=== PATIENT | female | born 1955 | race Caucasian/White ===

== ENCOUNTER 2020-09-15 10:24 | Emergency (ER) | payer MEDICARE, SELFPAY ==
[2020-09-11 12:01] VITALS: BMI 44.2
--- NOTE | 2020-09-14 10:13 | HO.ANESPROP2 ---
HPI - Anesthesia Eval Consult details Narrative: 64yo F for Spinal Cord Simulation Trial PMFSH Past Medical History Medical History Arthritis Back pain Elevated cholesterol Fatty liver Former cigarette smoker Hypertension Kidney tumor Leg edema Surgical History Surgical History History of hemorrhoidectomy Hx of appendectomy Hx of bilateral breast reduction surgery Hx of section Hx of colonoscopy Social History Social History Advance Directives: No Advance Directives Information Provided: No Advance Directives on File: No Meds Allergies Allergy/AdvReac Type Severity Reaction Status Date / Time No Known Allergies Allergy Unverified 09/11/20 11:56 [No Known Allergies*] Home Medications Medication Instructions Recorded Confirmed Type conjugated estrogens [Premarin] VAGINAL BEDTIME 09/11/20 History diclofenac sodium 1 tab PO BID 09/11/20 09/11/20 History escitalopram oxalate 1 tab PO DAILY 09/11/20 09/11/20 History hydrochlorothiazide 1 tab PO DAILY 09/11/20 09/11/20 History losartan 1 tab PO DAILY 09/11/20 09/11/20 History nicotine 1 patch TOPICAL DAILY 09/11/20 09/11/20 History rosuvastatin 1 tab PO DAILY 09/11/20 09/11/20 History Exam Exam Date and Time: September 14, 2020 1013 Height,Weight and Vital Signs: Height 5 ft 4 in Weight 117.027 kg Assessment and Plan Assessment Anesthesia Assessment: Chart Reviewed
[2020-09-15 09:18] VITALS: BP 149/75; PULSE 67; RESP 18; TEMP 36.3; O2SAT 95
[2020-09-15] MEDS: Lactated Ringers 1,000 ML 100 ML IVCONT (09:41)
--- NOTE | 2020-09-15 10:29 | PC.NURSE ---
Pt informed this rn on arrival of fall at home last night. PT c/o 10/10 pain to left side kidney area and back radiating down to left leg. Pt unable to bear weight to left leg. Dr. Petit notified and orders received to send patient to ER for further evaluation.
[2020-09-15 10:37] VITALS: BP 154/83; PULSE 76; RESP 20; TEMP 36.7; O2SAT 96; BMI 48.5
--- NOTE | 2020-09-15 10:37 | XR_ITS ---
EXAMINATION: XR HIP, LEFT CLINICAL INFORMATION: Pain. Fall. COMPARISON: None TECHNIQUE: Two views of the left hip. Frontal view of the pelvis. FINDINGS: No fracture or dislocation. The left femoral head articulates appropriately with its acetabulum. There is flattening of the femoral head with superior joint space narrowing. Subchondral sclerosis present. There is also flattening of the right femoral head with sclerosis of the femoral head and of the adjacent acetabulum with prominent subchondral cyst formation as well. The pelvic rim is intact. The sacroiliac joints and pubic symphysis are intact. The bowel gas pattern is unremarkable XR/XR hip LT min 2V IMPRESSION: No acute fracture or dislocation. Severe degenerative changes of both hips with flattening of the femoral heads.
--- NOTE | 2020-09-15 10:37 | XR_ITS ---
EXAMINATION: XR LUMBOSACRAL SPINE CLINICAL INFORMATION: Pain. Fall. COMPARISON: None TECHNIQUE: Three views of the lumbosacral spine. FINDINGS: No fracture or acute subluxation. Grade 1 anterolisthesis of L4 on L5. Vertebral body height and alignment is otherwise maintained. Disc space narrowing at L4-L5. Multilevel endplate osteophytes with facet arthropathy. The bowel gas pattern is unremarkable. XR/XR lumbar spine 2-3V IMPRESSION: No acute osseous abnormality. Mild to moderate multilevel degenerative changes.
--- NOTE | 2020-09-15 10:39 | ED_ITS ---
HPI - Back Pain/Injury General Chief Complaint: Back Pain/Injury Time Seen by Provider: 09/15/20 10:36 Source: patient Mode of arrival: other (short stay surgery) Limitations: no limitations History of Present Illness MD elicited complaint: back pain, back injury and fall Pertinent past history: prior back pain and recent trauma Onset (ago): day(s) (fell yesterday) Timing: constant Severity: moderate Similar Symptoms Previously: Yes Quality: sharp and stabbing Location: lumbar spine Radiation: left upper leg Exacerbating factors: movement Relieving factors: none Context: fall Associated symptoms: other (L hip pain) Work related injury: No Related Data Home Medications Medication Instructions Recorded Confirmed conjugated estrogens [Premarin] VAGINAL BEDTIME 09/11/20 diclofenac sodium 1 tab PO BID 09/11/20 09/11/20 escitalopram oxalate 1 tab PO DAILY 09/11/20 09/11/20 hydrochlorothiazide 1 tab PO DAILY 09/11/20 09/11/20 losartan 1 tab PO DAILY 09/11/20 09/11/20 nicotine 1 patch TOPICAL DAILY 09/11/20 09/11/20 rosuvastatin 1 tab PO DAILY 09/11/20 09/11/20 Previous Rx's Medication Instructions Recorded diazepam [Valium] 5 mg PO TID PRN #10 tab 09/15/20 hydrocodone-acetaminophen 1 tab PO Q6H PRN #12 tab 09/15/20 lidocaine 1 patch TOPICAL DAILY PRN #10 ea 09/15/20 Allergies Allergy/AdvReac Type Severity Reaction Status Date / Time acetaminophen [From Percocet] Allergy Itching Verified 09/15/20 10:34 oxycodone [From Percocet] Allergy Itching Verified 09/15/20 10:34 Review of Systems Review of Systems: Constitutional : No Weight loss, No Fever, No Chills, ENT/Mouth : No Hearing loss, No Ear Pain, No Nasal Congestion, No Sinus Pain, No Hoarseness, No sore throat, No Rhinorrhea, No Swallowing Difficulty Cardiovascular : No Chest Pain, No SOB Respiratory : No Cough, No Dyspnea Gastrointestinal : No Nausea, No Vomiting, No Diarrhea, No abdominal Pain, No Hematochezia, No Melena Genitourinary : No Dysuria, No Urinary Frequency, No Hematuria, No Urinary Incontinence, Musculoskeletal : positive back pain, pos L hip pain Skin : No Skin Lesions, No rash Neuro : No Weakness, No Numbness, No Paresthesias, no loss of bowel or bladder incontinence, no saddle anesthesia [facility] Past Medical History Attestation statement: The following information was validated with the patient. Medical History Arthritis Back pain Elevated cholesterol Fatty liver Former cigarette smoker Hypertension Kidney tumor Leg edema Surgical History History of hemorrhoidectomy Hx of appendectomy Hx of bilateral breast reduction surgery Hx of section Hx of colonoscopy Social History Social History (Updated 09/15/20 @ 10:43 by Sofi Phillips DO) Alcohol intake: never Use of substances other than those prescribed or required for medical reasons: No Advance Directives: No Advance Directives Information Provided: No Advance Directives on File: No Physical Exam Vital Signs: Vital Signs: Last Vital Signs Temp 98.1 F 09/15/20 10:37 Pulse 76 09/15/20 10:37 Resp 20 09/15/20 10:37 BP 154/83 H 09/15/20 10:37 Pulse Ox 96 09/15/20 10:37 Body Mass Index 48.5 Appearance: Alert. Oriented X3. No acute distress. Eyes: Pupils equal, round and reactive to light. ENT: Pharynx normal. Neck: Normal inspection. Neck supple. CVS: Normal heart rate and rhythm. Pulses normal. Respiratory: No respiratory distress. Breath sounds normal. Abdomen: Soft and nontender. Back: ttp along L lower lumbar Skin: Skin warm and dry. Normal skin color. Normal skin turgor. Extremities: No lower extremity edema. L hip pain Neuro: Oriented X 3. No motor deficit. No sensory deficit. Course Course Course Narrative: negative xrays, patient wants to go back to [facility] for stimulator but she was canceled, she is upset, offered rehab but she refuses, no neuro findings, stable for DC MDM - Back Pain/Injury MDM Narrative Medical decision making narrative: 64 yo female with hx of chronic back pain no IVDA, no AC therapy, no b/b incontinence, no saddle anesthesia - fell yesterday isolated injury to L hip and back sent from [facility] for xrays? patient due for stimulator today, lumbar and L hip films ordered, IV pain medications Discharge Plan Discharge Clinical Impression: Strain of lumbar region Qualifiers: Encounter type: initial encounter Qualified Code(s): S39.012A - Strain of muscle, fascia and tendon of lower back, initial encounter Acute hip pain Qualifiers: Laterality: left Qualified Code(s): M25.552 - Pain in left hip Patient Disposition: Home, Self-Care Instructions: Acute Low Back Pain (ED) Additional Instructions: return to ED for any worsening symptoms or concerns Prescriptions: New lidocaine 4 % adhesive patch,medicated 1 patch topical DAILY PRN (Reason: pain) Qty: 10 RF: 0 hydrocodone-acetaminophen 5-325 mg tablet 1 tab PO Q6H PRN (Reason: pain) Qty: 12 RF: 0 diazepam [Valium] 5 mg tablet 5 mg PO TID PRN (Reason: muscle spasm) Qty: 10 RF: 0 No Action losartan 50 mg tablet 1 tab PO DAILY RF: 0 Premarin 0.625 mg/gram cream vaginal BEDTIME RF: 0 nicotine 21 mg/24 hr patch 24 hour 1 patch topical DAILY RF: 0 diclofenac sodium 75 mg tablet,delayed release (DR/EC) 1 tab PO BID RF: 0 hydrochlorothiazide 25 mg tablet 1 tab PO DAILY RF: 0 rosuvastatin 40 mg tablet 1 tab PO DAILY RF: 0 escitalopram oxalate 5 mg tablet 1 tab PO DAILY RF: 0 Referrals: Noreen White MD [Primary Care Provider] - 2 days Salo Petit MD [Physician] - 2 days
[2020-09-15] MEDS: HYDROmorphone HCl 1 MG/ML SYRINGE IVPUSH (10:45)
--- NOTE | 2020-09-15 10:45 | PC.NURSE ---
IV FROM OR 20 G R HAND. MEDICATED PER ORDERS FOR 1010 BACK PAIN
--- NOTE | 2020-09-15 12:33 | PC.NURSE ---
PT TO BE RESCHEDULED FOR SURGERY. AGREEABLE TO DISCHARGE.
== END 2020-09-15 12:38 | disposition home or self-care (01) ==
LOC: HO.ED 10:25
PROVIDERS: Emergency Provider Emergency Medicine; PCP Internal Medicine; Visit Provider Anesthesiology
DX: S39.012A Strain of muscle, fascia and tendon of lower back, initial encounter (principal); G90.523 Complex regional pain syndrome I of lower limb, bilateral; M25.552 Pain in left hip; W01.0XXA Fall on same level from slipping, tripping and stumbling without subsequent striking against object, initial encounter; Y93.9 Activity, unspecified; Y92.9 Unspecified place or not applicable; Y99.9 Unspecified external cause status; Z87.891 Personal history of nicotine dependence; Z79.899 Other long term (current) drug therapy
CPT/HCPCS: 72100; 73502; 99283; J1170

== ENCOUNTER → 2020-11-01 10:21 | Outpatient (BNVA) | payer MEDICARE, SELFPAY | PROVIDERS: PCP Internal Medicine; Referring Provider Internal Medicine; Visit Provider Anesthesiology | DX: M16.0 Bilateral primary osteoarthritis of hip (principal); M54.5 Low back pain; G89.4 Chronic pain syndrome; E66.9 Obesity, unspecified | CPT/HCPCS: 99212 ==

== ENCOUNTER 2020-11-28 06:27 | Outpatient (REF) | payer MEDICARE, SELFPAY ==
--- NOTE | 2020-11-28 07:34 | FL_ITS ---
EXAMINATION: XR FLUOROSCOPY WITH IMAGES CLINICAL INFORMATION: M16.0 - Bilateral primary osteoarthritis of hip COMPARISON: Radiographs left hip 09/15/2020 TECHNIQUE: Fluoroscopy performed by Yolanda Wells NP. Fluoroscopy time: 0.3 minutes DAP: 9.02 Gycm2 Images: 1 FINDINGS: There is a spinal needle overlying the superior lateral aspect left hip joint with some trace intra-articular contrast demonstrated. Prominent arthritic changes again seen similar to prior study with joint narrowing and subchondral sclerosis and flattening femoral head. FL/FL guidance in treatment room IMPRESSION: Fluoroscopy for pain management procedure.
[2020-11-28 12:59] LABS: RBC Synovial Fluid 0.012 X10*6/uL; WBC Synovial Fluid 0.345 X10*3/uL
[2020-11-28 14:03] LABS: Lymphocytes Synovial Fluid 27 %; Neutrophils Synovial Fluid 17 %
[2020-11-28 14:04] LABS: BF Shift QC OK YES; Man Diluent Bkgrd OK YES; Monocytes Synovial Fluid 26 %; Other Cells Synovial Fluid 30
== END 2020-11-28 06:28 | disposition home or self-care (01) ==
LOC: HO.RADIR 06:27
PROVIDERS: Visit Provider Anesthesiology
DX: M16.0 Bilateral primary osteoarthritis of hip (principal); M54.5 Low back pain
CPT/HCPCS: 20610; 87071; 87073; 87205; 89051; 89060; J3300; Q9967

== ENCOUNTER → 2020-12-28 10:18 | Outpatient (BNVA) | payer MEDICARE, SELFPAY | PROVIDERS: PCP Internal Medicine; Visit Provider Anesthesiology | DX: E66.9 Obesity, unspecified (principal); G89.4 Chronic pain syndrome | CPT/HCPCS: Q3014 ==

== ENCOUNTER 2021-01-02 06:05 | Outpatient (REF) | payer MEDICARE, SELFPAY | END 2021-01-02 06:06 | disposition home or self-care (01) | LOC: HO.RADIR 06:05 | PROVIDERS: Visit Provider Anesthesiology | DX: Z13.89 Encounter for screening for other disorder (principal) ==

== ENCOUNTER 2021-02-02 10:33 | Day surgery (SDC) | payer MEDICARE, SELFPAY ==
[2021-01-29 14:31] VITALS: BMI 49.2
--- NOTE | 2021-02-01 11:40 | P.CONAN_ITS ---
Documented by User: Magnolia Gregorio 02/01/21 11:40 HPI - Anesthesia Eval Consult details Narrative: 65yo F for Lumbar Spinal Cord Simulation Trial (previously scheduled but had fall at home and sent to ED for eval) PMFSH Active Problems Active Problems: All Active Problems (Updated 01/29/21 @ 14:33 by Hayley Dubois) Chronic pain syndrome (Acute) Obesity (Acute) Low back pain (Acute) Osteoarthritis, hip, bilateral (Acute) Past Medical History Medical History Back pain Chronic pain syndrome Depression Elevated cholesterol Fatty liver Hypertension Kidney tumor Leg edema Low back pain Obesity Osteoarthritis, hip, bilateral Surgical History Surgical History History of hemorrhoidectomy Hx of appendectomy Hx of bilateral breast reduction surgery Hx of section Hx of cholecystectomy Hx of colonoscopy Social History Social History Are you a primary career resource technician to a significant other at home: No Do you presently have visiting nurse or other home services: No Alcohol intake: never Smoking Status: Current every day smoker Tobacco Type: Cigarette Cigarettes Per Day: 5 Years Smoked: 35 Smoked in Last 30 Days: Yes Use of substances other than those prescribed or required for medical reasons: No Have you been hit, kicked, punched, or otherwise hurt by someone within the past year? If so, by whom?: No Advance Directives Information Provided: No Recently lost weight without trying: No Meds Allergies Allergy/AdvReac Type Severity Reaction Status Date / Time oxycodone [From Percocet] Allergy Itching Verified 02/02/21 11:06 Home Medications Medication Instructions Recorded Confirmed Last Taken Type conjugated estrogens [Premarin] 1 appl VAGINAL BEDTIME 09/11/20 01/29/21 Unknown History escitalopram oxalate 5 mg PO DAILY 09/11/20 01/29/21 09/15/20 History hydrochlorothiazide 25 mg PO DAILY PRN 09/11/20 01/29/21 Unknown History losartan 50 mg PO DAILY 09/11/20 01/29/21 09/15/20 History rosuvastatin 40 mg PO DAILY 09/11/20 01/29/21 09/15/20 History Exam Exam Date and Time: February 01, 2021 1140 Height,Weight and Vital Signs: Height 5 ft 4 in Weight 130.181 kg Assessment and Plan Assessment Anesthesia Assessment: Chart Reviewed Documented by User: Iris Smith 02/02/21 11:07 [facility] Past Medical History Medical History Back pain Chronic pain syndrome Depression Elevated cholesterol Fatty liver Hypertension Kidney tumor Leg edema Low back pain Obesity Osteoarthritis, hip, bilateral Surgical History Surgical History History of hemorrhoidectomy Hx of appendectomy Hx of bilateral breast reduction surgery Hx of section Hx of cholecystectomy Hx of colonoscopy Social History Social History Are you a primary career resource technician to a significant other at home: No Do you presently have visiting nurse or other home services: No Alcohol intake: never Smoking Status: Current every day smoker Tobacco Type: Cigarette Cigarettes Per Day: 5 Years Smoked: 35 Smoked in Last 30 Days: Yes Use of substances other than those prescribed or required for medical reasons: No Have you been hit, kicked, punched, or otherwise hurt by someone within the past year? If so, by whom?: No Advance Directives Information Provided: No Recently lost weight without trying: No Meds Allergies Allergy/AdvReac Type Severity Reaction Status Date / Time oxycodone [From Percocet] Allergy Itching Verified 02/02/21 11:06 Home Medications Medication Instructions Recorded Confirmed Last Taken Type conjugated estrogens [Premarin] 1 appl VAGINAL BEDTIME 09/11/20 01/29/21 Unknown History escitalopram oxalate 5 mg PO DAILY 09/11/20 01/29/21 09/15/20 History hydrochlorothiazide 25 mg PO DAILY PRN 09/11/20 01/29/21 Unknown History losartan 50 mg PO DAILY 09/11/20 01/29/21 09/15/20 History rosuvastatin 40 mg PO DAILY 09/11/20 01/29/21 09/15/20 History Exam Airway Mallampati Class: III TM Dist: >3cm Neck ROM: Full
--- NOTE | ~2021-02-02 | FL_ITS ---
EXAMINATION: XR FLUOROSCOPY WITH IMAGES CLINICAL INFORMATION: Lumbar spine spinal cord stimulation trial. COMPARISON: None. TECHNIQUE: Fluoroscopy performed by Dr. Elaine Leong Fluoroscopy time: 3.8 minutes DAP: 54.5 mGycm2 Images: 1 FINDINGS: On a single image obtained through the spinal column is a neural stimulator extending caudad with its tip along the superior endplate of L3 vertebra. The entry point is not in the [id number]. Mild degenerative disc changes at L4-L5 and L5-S1 disc levels are noted. FL/FL guidance in OR IMPRESSION: Single image obtained through the lumbar spine reveals a neural stimulator extending the caudate fashion with its tip along the superior end plate of L3 vertebra. There are degenerative disc changes at L4-L5 and L5-S1 disc levels.
--- NOTE | 2021-02-02 07:37 | MHC.SHP ---
Pre-Procedural Eval Section A The patient is an INPATIENT: No The History & Physical has been completed within 30 days and I have reviewed it.: No Section B Chief Complaint: Bilateral primary osteoarthritis of hip Details of Present Illness: as above Relevant Family History (Specify if Yes): No Present Medications: see Short Stay Collaborative assessment Medical History: No relevant PMH Allergies: Allergies Allergy/AdvReac Type Severity Reaction Status Date / Time oxycodone [From Percocet] Allergy Itching Verified 12/28/20 10:19 Review of Systems Sugical H&P ROS: Negative: Cardiovascular, Respiratory, Neurological, Psychiatric, Hem-Onc, Allergic/Immunologic, Gastrointestinal, Genitourinary, Musculoskeletal, Integumentary, Endocrine and Eyes/Ears/Nose/Throat and Yes, Specify: Constitution (morbid obesity) Exam Surgical H&P Exam: Normal: Heart, Normal: Lungs, Normal: Extremities, Normal: Abdomen, Normal: Skin and Normal: Neurological and Significant Findings: HEENT (morbid obesity) Plan Diagnosis/Plan: Unchanged I have reviewed the history and physical and performed a pertinent physical examination on my patient. No changes have occurred unless specified.
[2021-02-02 11:04] VITALS: BP 135/63; PULSE 85; RESP 18; TEMP 36.3; O2SAT 95
--- NOTE | 2021-02-02 11:06 | MHC.SHP ---
Pre-Procedural Eval Section B Chief Complaint: Bilateral primary osteoarthritis of hip Details of Present Illness: As above Relevant Family History (Specify if Yes): No Relevant Social History: None Present Medications: see Short Stay Collaborative assessment Medical History: Significant History History of Previous Operations: No relevant previous surgery Allergies: Allergies Allergy/AdvReac Type Severity Reaction Status Date / Time oxycodone [From Percocet] Allergy Itching Verified 12/28/20 10:19 Review of Systems Sugical H&P ROS: Negative: Cardiovascular, Respiratory, Neurological, Psychiatric, Hem-Onc, Allergic/Immunologic, Gastrointestinal, Genitourinary, Musculoskeletal, Integumentary, Endocrine and Eyes/Ears/Nose/Throat and Yes, Specify: Constitution (Morbid obesity) Exam Surgical H&P Exam: Normal: Heart, Normal: Lungs, Normal: Extremities, Normal: Abdomen, Normal: Skin and Normal: Neurological and Significant Findings: HEENT (Morbid obesity) Plan Diagnosis/Plan: Unchanged I have reviewed the history and physical and performed a pertinent physical examination on my patient. No changes have occurred unless specified.
--- NOTE | 2021-02-02 11:08 | W.PM.OPN ---
Operative Note Operative Note Date of Service: 02/02/21 Narrative: Ms. Garcia is very pleasant 65 years old female who came today into the operating room for trial of spinal cord stimulator for the treatment of pain related to left hip osteoarthritis. Preoperatively patient received 3 g cefazolin _approximately 30 minutes before the procedure. After obtaining informed consent patient was brought to the operating room, she was positioned prone on operating table, [place] [employer] monitors were applied and patient was deeply sedated. Time-out was performed delineating correct site, side, the nature of the procedure, patient's allergy, preoperative antibiotic. All operating room staff was participating in OR time-out procedure. Patient's entire back was prepped with ChloraPrep twice and draped with full body drape. Sterilely draped C-arm was brought over operating field and sqare picture of L5 and S1 vertebrae as were demonstrated on the screen. THE PROJECTION OF S1 SPINAL lamina TO THE SKIN WERE INFILTRATED WITH LIDOCAINE 2% MIXED WITH BUPIVACAINE 0.5%. Small zach of scalpel was performed and after that 14 gauge introducer needle was inserted through the zach and through the skin and advanced toward L5-S1 epidural interspace. Thorough tissue dissections was performed until prevertebral fascia was freed from overlying tissues. Attention FIRST was concentrated on the left L5-S1 epidural interspace. The advancement of the needle was performed on anterior posterior and lateral views. Guitar wire and loss of resistance technique were used to locate epidural space. When guitar wire was spread in the epidural fashion, epidural lead was inserted through the skin and an attempt was made to advance the epidural lead into the lateral gutter on the left in the epidural space. Unfortunately that was proven to be very difficult the probable adhesions in the epidural space prevented the epidural lead to advance anywhere beyond the L5-S1 epidural interspace. Testing device was connected to the epidural lead and stimulations were done which were not corresponding to the patient's pain. The decision was made to attempt a retrograde advancement of the lead to the left epidural space. After that attention was concentrated on patient's T12-L1 level on the left side where the injection of the local anesthetic was performed in the projection of upper lamina of T12 vertebra. Small zach of the scalpel was made to the skin and 14 gauge epidural needle was inserted through the zach advanced through the skin toward T12-L1 epidural interspace. Loss of resistance to air technique and guitar wire was used to locate epidural space. After that the testing epidural lead was inserted through the needle and advanced into the epidural space, unfortunately the majority of the electrodes ended up in the right epidural space . After that the same procedure was performed at T12-L1 level on the right side epidural interspace and on this side we were able to advance the epidural lead in the left gutter to the position of L2-L3 epidural interspace. Unfortunately due to epidural adhesions and growing patient discomfort we were not able to advance the epidural lead further. The epidural lead was connected to testing device a and testing was performed again. This time patient reported in the projection of L1-L2 vertebra stimulation in the left hip resembling the spread of her pain. Decision was made to keep this electrode as testing stimulating device. The epidural needle was withdrawn and the anchoring device was dislodged on the epidural lead. Two silk sutures were applied to the anchoring device and they were tied to fast in epidural lead and the anchor to the skin. Bacitracin was applied to the insertion sites and sterile dressing was applied, patient tolerated procedure well. She was taking outside to the PACU where she recovered uneventfully
[2021-02-02] MEDS: Lactated Ringers 1,000 ML 100 ML IVCONT (11:17)
[2021-02-02 13:40] VITALS: BP 107/40; PULSE 80; RESP 18; TEMP 36.6; O2SAT 97
--- NOTE | 2021-02-02 13:43 | P.BOP_ITS ---
Brief Operative Note Date of Service: 02/02/21 Pre-op diagnosis: Left hip osteoarthritis Post-op diagnosis: same Procedure: Trial of spinal cord stimulation [place] [employer] Implants: None per Surgeon: Salo Petit MD Anesthesia: MAC Estimated blood loss (mL): 5 Pathology: none sent Condition: stable Disposition: PACU
[2021-02-02 13:55] VITALS: BP 111/46; PULSE 65; RESP 20; O2SAT 93
[2021-02-02] MEDS: Acetaminophen 325 MG TABLET 650 MG PO (14:00)
[2021-02-02 14:07] VITALS: BP 108/80; PULSE 68; RESP 18; O2SAT 97
[2021-02-02 14:21] VITALS: BP 125/59; PULSE 72; RESP 20; O2SAT 97
== END 2021-02-02 14:45 | disposition home or self-care (01) ==
PROVIDERS: PCP Internal Medicine; Visit Provider Anesthesiology
PROC: (CPT 63650; principal; 2021-02-02 12:00)
DX: M16.0 Bilateral primary osteoarthritis of hip (principal); G89.4 Chronic pain syndrome; Z88.8 Allergy status to other drugs, medicaments and biological substances; I10 Essential (primary) hypertension; M54.5 Low back pain; E66.9 Obesity, unspecified; Z79.899 Other long term (current) drug therapy; F17.210 Nicotine dependence, cigarettes, uncomplicated
CPT/HCPCS: 63650; C1778; J0690; J2250; J3010

== ENCOUNTER → 2021-02-08 12:59 | Outpatient (BNVA) | payer MEDICARE, SELFPAY | PROVIDERS: PCP Internal Medicine; Visit Provider Anesthesiology | DX: M16.0 Bilateral primary osteoarthritis of hip (principal); M54.5 Low back pain; E66.9 Obesity, unspecified; G89.4 Chronic pain syndrome | CPT/HCPCS: 99212 ==

== ENCOUNTER 2024-02-13 11:01 | Inpatient (IN) | payer OTHER, SELFPAY ==
--- NOTE | ~2024-02-13 | US_ITS ---
EXAMINATION: NONINVASIVE ASSESSMENT OF THE ARTERIES OF BOTH LOWER EXTREMITIES Mike Hernandez MD CLINICAL INFORMATION: Pedal pulses difficult to assess with question of peripheral arterial disease TECHNIQUE: Bilateral lower extremity duplex ultrasound was performed with velocity measurements and waveform analysis in the common femoral arteries, profunda femoris arteries, proximal mid and distal superficial femoral arteries, popliteal arteries and tibial vessels. This study was performed only at rest. COMPARISON: None FINDINGS: Velocities in cm/sec and phasicity as well as the presence of plaque are reported below. Scattered areas of plaque are seen bilaterally. Good multiphasic flow, predominantly biphasic is noted throughout both lower extremities. There is some mild velocity acceleration in the left common femoral artery indicating possible stenosis. RIGHT LEG: Common Femoral: 170 Profunda Femoris: 84 Proximal SFA: 103 Mid SFA: 153 Distal SFA: 112 Popliteal: 1:30 Posterior tibial: 113 Peroneal: Not seen Anterior tibial: 40 Dorsalis pedis: 39 LEFT LEG: Common Femoral: 230 Profunda Femoris: 105 Proximal SFA: 156 Mid SFA: 138 Distal SFA: 145 Popliteal: 154 Posterior tibial: 113 Peroneal: Not seen Anterior tibial: 75 Dorsalis pedis: 24 US/US arterial duplex LE BI IMPRESSION: There is no evidence of any hemodynamically significant lower extremity arterial disease by waveform or duplex Doppler criteria at rest.
--- NOTE | ~2024-02-13 | XR_ITS ---
EXAMINATION: XR CHEST CLINICAL INFORMATION: Hypoxia COMPARISON: Previous chest CTA from the same day TECHNIQUE: Frontal view of the chest was obtained. FINDINGS: The cardiac and mediastinal contours are normal. The lung volumes are low. The lungs are clear. No pleural effusion or pneumothorax. Degenerative changes of the spine. XR/XR chest 1V IMPRESSION: Low lung volumes. No evidence for acute disease in the chest.
--- NOTE | ~2024-02-13 | CT_ITS ---
EXAMINATION: CT ANGIOGRAM OF THE CHEST WITH AND WITHOUT CONTRAST (CT PULMONARY ANGIOGRAM FOR PE) CLINICAL INFORMATION: Reason for Exam HYPOXIA, SOB, low INR COMPARISON: Chest x-ray from earlier the same day TECHNIQUE: Prior to contrast administration, noncontrast localization images were obtained. Subsequently, multidetector volumetric imaging was performed from the thoracic inlet to below the diaphragms following the administration of 65 mL Omnipaque 350 intravenous contrast. No contrast reaction reported Sagittal, coronal, and MIP oblique sagittal reformatted images were obtained on the CT workstation, uploaded to PACS, and reviewed. This CT examination was performed using dose optimization techniques as appropriate, variously including the following: *Automated exposure control *Adjustment of mA and/or kV according to patient size (this includes techniques or standardized protocols for targeted exams where dose is matched to indication/reason for exam; i.e. extremities or head) *Use of iterative reconstruction technique Total exam dose-length product 500 mGy-cm FINDINGS: QUALITY OF STUDY/CONTRAST BOLUS: Satisfactory. PULMONARY ARTERIES: No pulmonary emboli. THORACIC AORTA: No aneurysm. LUNG: No focal consolidation, nodules or masses. Minimal dependent atelectasis at the lung bases. PLEURA: No pleural effusion or pneumothorax. MEDIASTINUM: Enlarged heart. No pericardial effusion. No hilar or mediastinal lymphadenopathy. No evidence of septal bowing or right heart strain. CORONARY ARTERY CALCIFICATION: Mild CHEST WALL/AXILLA: No axillary or internal mammary lymphadenopathy. OSSEOUS STRUCTURES: Degenerative changes of the spine. Sclerotic lesion in the right side of the sternum measuring 1 cm. This is nonspecific. No other focal bone lesion seen. UPPER ABDOMEN: There may be fatty infiltration of the liver and the liver may be enlarged.. No reflux of contrast into the hepatic veins to suggest elevated right heart pressures. CT/CT angio chest PE protocol IMPRESSION: No evidence of pulmonary embolism. VTE: negative
[2024-02-13 11:12] VITALS: PULSE 99; RESP 20; O2SAT 85
[2024-02-13 11:15] VITALS: BP 140/79; BP 150/90; PULSE 100; PULSE 86; RESP 20; TEMP 36.9; O2SAT 95; O2SAT 97; BMI 48.9
--- OUTSIDE RECORDS SUMMARY | 2024-02-13 11:19 | XMS_ITS | Continuity of Care Document ---
Author Organization [facility] Address [address] [place] [id number]- Care Team Providers Care Photograph Tinter Name Role Phone Roxanna Bingham MD Primary Care Physician [phone] [place] [facility] Date(s): 08/13/21 - 09/12/21 [facility] [address] [place] [id number]- Allergies, Adverse Reactions, Alerts Substance Reaction Severity Status sulfADIAZINE Active Medications clindamycin 300 mg oral capsule 1 capsule = 300 mg, By Mouth, 2 times a day, # 14 capsule, 0 Refills, Maintenance, Capsule Start Date: 08/14/12 Stop Date: 08/21/12 Status: Ordered diclofenac sodium 1% topical cream 0 Refills, Maintenance, 07/30/21 14:33:00 EDT, Partial fill upon patient request if the prescription is for a schedule II opioid drug. Start Date: 07/30/21 Status: Ordered docusate sodium 100 mg oral capsule 1 capsule = 100 mg, By Mouth, 2 times a day, # 60 capsule, 0 Refills, Maintenance, Capsule Start Date: 02/13/12 Status: Ordered docusate sodium 100 mg oral capsule 1 capsule = 100 mg, By Mouth, 2 times a day, # 60 capsule, 0 Refills, Maintenance, Capsule Start Date: 07/29/12 Status: Ordered losartan 50 mg oral tablet 50 mg, 1, tablet, By Mouth, Daily, Refills 0, Maintenance, 07/30/21 14:32:00 EDT, Partial fill uponpatient request if the prescription is for a schedule II opioid drug. Start Date: 07/30/21 Status: Ordered MiraLax = 17 Gm, By Mouth, Daily, 0 Refills, Maintenance, 04/08/18 13:30:00 EDT Start Date: 04/08/18 Status: Ordered Percocet-5/325 325 mg-5 mg oral tablet 1 tablet, By Mouth, Every 4 hours, PRN for pain, # 50 tablet, 0 Refills, Maintenance, Tablet Start Date: 08/14/12 Status: Ordered ProAir HFA 90 mcg/inh inhalation aerosol with adapter 1, puffs, Inhalation, Every 4 hours, PRN, 108mcg, # 8.5 Gm, Refills 0, Maintenance, 04/08/18 13:30:06 EDT, Aerosol Start Date: 04/08/18 Status: Ordered Silvadene 1% cream 1 application, Topically, Daily, # 25 Gm, 0 Refills, Maintenance, Cream Start Date: 08/14/12 Status: Ordered Simvastatin By Mouth, Daily at bedtime, 0 Refills, Maintenance Start Date: 01/13/12 Status: Ordered Topamax 50 mg oral tablet 1 tablet = 50 mg, By Mouth, Daily, # 60 tablet, 0 Refills, Maintenance, 04/08/18 13:29:04 EDT, Tablet Start Date: 04/08/18 Status: Ordered Ultram ER 200 mg oral tablet, extended release 1 tablet = 200 mg, By Mouth, Daily, # 30 tablet, 0 Refills, Maintenance, ER Tablet Start Date: 08/03/12 Status: Ordered Problem List Condition Effective Dates Status Health Status Inform ant Macromastia(Confirmed) Active Social History Social History Type Response Smoking Status Current every day eduar anglin entered on: 04/08/18 Sex
--- OUTSIDE RECORDS SUMMARY | 2024-02-13 11:19 | XMS_ITS | Continuity of Care Document ---
Author Organization [facility] Address [address] [place] [address]- Care Team Providers Care Quality Control Projectionist Name Role Phone Roxanna Bingham MD Primary Care Physician [phone] [id number] [address] [place] [address]- Attending Physician: Harish Najera MD Admitting Physician: Harish Najera MD Allergies, Adverse Reactions, Alerts Substance Reaction Severity [...]
--- OUTSIDE RECORDS SUMMARY | 2024-02-13 11:19 | XMS_ITS | Continuity of Care Document ---
Author Organization [facility] Address [address] [place] [address] Dr [address] [place] [address]- Care Team Providers Care Pre Press Manager Name Role Phone Zachery ROCKWELL, Roxanna Primary Care Physician Encounter [facility] [place] [facility] R [id number] Date(s): 10/14/22 - 01/23/[address] [place] [address]- Attending Physician: Fermin ROCKWELL, Hayley Machado Allergies, Adverse Reactions, Alerts Substance Reaction Severity Status sulfADIAZINE Unknown Active Medications diclofenac sodium 1% topical cream 0 Refills, Maintenance, 07/30/21 14:33:00 EDT, Partial fill upon patient request if the prescription is for a schedule II opioid drug. Start Date: 07/30/21 Status: Ordered Escitalopram By Mouth, Daily, 0 Refills, Maintenance, 09/17/22 10:50:00 EST, Partial fill upon patient request if the prescription is for a schedule II opioid drug. Start Date: 09/17/22 Status: Ordered losartan 50 mg oral tablet 50 mg, 1, tablet, By Mouth, Daily, Refills 0, Maintenance, 07/30/21 14:32:00 EDT, Partial fill uponpatient request if the prescription is for a schedule II opioid drug. Start Date: 07/30/21 Status: Ordered metFORMIN 500 mg oral tablet 1 tablet = 500 mg, By Mouth, 2 times a day, 0 Refills, Maintenance, 09/17/22 10:47:00 EST, Partial fill upon patient request if the prescription is for a schedule II opioid drug. Start Date: 09/17/22 Status: Ordered MiraLax = 17 Gm, By Mouth, Daily, 0 Refills, Maintenance, 04/08/18 13:30:00 EDT Start Date: 04/08/18 Status: Ordered Myrbetriq By Mouth, Daily, 0 Refills, Maintenance, 09/17/22 10:49:00 EST, Partial fill upon patient request if the prescription is for a schedule II opioid drug. Start Date: 09/17/22 Status: Ordered Nicotine 7 mg/24 hour patch 1 patch, Daily, 0 Refills, Maintenance, 09/17/22 10:49:00 EST, Partial fill upon patient request ifthe prescription is for a schedule II opioid drug. Start Date: 09/17/22 Status: Ordered Silvadene 1% cream 1 application, Topically, Daily, # 25 Gm, 0 Refills, Maintenance, Cream Start Date: 08/14/12 Status: Ordered Simvastatin By Mouth, Daily at bedtime, 0 Refills, Maintenance Start Date: 01/13/12 Status: Ordered Ultram ER 200 mg oral tablet, extended release 1 tablet = 200 mg, By Mouth, Daily, # 30 tablet, 0 Refills, Maintenance, ER Tablet Start Date: 08/03/12 Status: Ordered Problem List Condition Confirmation Course Effective Dates Status Health St atus Informant HLD (hyperlipidemia) Confirmed Active HTN (hypertension) Confirmed Active Macromastia Confirmed Active Prediabetes Confirmed Active Severe obesity Confirmed Active Social History Social History Type Response Smoking Status Current every day eduar anglin entered on: 04/08/18 Sex Patient Care team information Care Team Personnel Name: Aleksandra Bullock RN Position: [facility] RN Member Role: Primary Care Nurse Care Team Related Persons Name: CHELAFREDDY MANE Address: [place] [address] Name: CHECO NOBLES Address: [address] [address]
--- OUTSIDE RECORDS SUMMARY | 2024-02-13 11:19 | XMS_ITS | Continuity of Care Document ---
Author Organization [facility] Address [address] [place] [address] [address] [place] [address]- Care Team Providers Care Sql Server Bi Developer Name Role Phone Zachery ROCKWELL, Roxanna Primary Care Physician [phone] [place] [facility] [place]12[place] - 08/11/[address] [place] [address]- Allergies, Adverse Reactions, Alerts Substance Reaction Severity [...] Active Macromastia Confirmed Active Prediabetes Confirmed Active Social History Social History Type Response Smoking Status Current every day eduar anglin entered on: 04/08/18 Sex Patient Care team information Personnel Name: Roxanna Bingham MD Address: Address: [address] [place] [address] [address]
--- OUTSIDE RECORDS SUMMARY | 2024-02-13 11:20 | XMS_ITS | Continuity of Care Document ---
Author Organization [facility] Address [address] [place] [address] [address] [place] [address]- Care Team Providers Care Final Canoe Inspector Name Role Phone Roxanna Bingham MD Primary Care Physician [phone] [place] [facility] [place] Date(s): 08/16/22 - 08/23/[address] [place] [address]- Attending Physician: Jered Castro Referring Physician: Roxanna Bingham MD Allergies, Adverse Reactions, Alerts Substance Reaction [...] Personnel Name: Roxanna Bingham MD Address: Address: [address] [place] [address] [place] [address]
--- OUTSIDE RECORDS SUMMARY | 2024-02-13 11:20 | XMS_ITS | Continuity of Care Document ---
Author Organization [facility] Address [address] [place] [address] [address] [place] [address]- Care Team Providers Care Firer Bisque Kiln Name Role Phone Zachery ROCKWELL, Roxanna Primary Care Physician En[place] [facility] [place] Date(s): 12/24/22 - 01/23/[address] [place] [address]- Attending Physician: Yvette Downing Admitting Physician: Yvette Downing Referring Physician: AdmtrYvette Allergies, Adverse Reactions, Alerts Substance Reaction Severity [...] Team Personnel Name: Aleksandra Bullock RN Position: [facility] RN Member Role: Primary Care Nurse Care Team Related Persons Name: FREDDY PLASCENCIA Address: [place] [address] Name: CHECO NOBLES Address: [address] [address]
--- OUTSIDE RECORDS SUMMARY | 2024-02-13 11:20 | XMS_ITS | Continuity of Care Document ---
Author Organization [facility] Address [address] [place] [address]- Care Team Providers Care Maxillofacial Prosthetics Dentist Name Role Phone Zachery ROCKWELL, Roxanna Primary Care Physician [phone] [place] [facility] [place](s): 10/16/21 - 11/21/[address] [address] Attending Physician: Rebeca Grissom NP Admitting Physician: Rebeca Grissom NP Referring Physician: Rebeca Grissom NP Allergies, Adverse Reactions, Alerts Substance Reaction Severity [...]
--- OUTSIDE RECORDS SUMMARY | 2024-02-13 11:20 | XMS_ITS | Continuity of Care Document ---
Author Organization [facility] Address [address] [place] [address]- Care Team Providers Care Shoe Sewing Machine Operator And Tender Name Role Phone Roxanna Bingham MD Primary Care Physician [place] [facility] [place] [id number] Date(s): 10/12/21 - 11/11/21 [facility] [address] [place] [address]- Attending Physician: Yvette Downing Admitting Physician: AdmYvette barboza Referring Physician: AdmtrYvette Allergies, Adverse Reactions, Alerts [...]
--- OUTSIDE RECORDS SUMMARY | 2024-02-13 11:20 | XMS_ITS | Continuity of Care Document ---
Author Organization [facility] Address [address] [place] [address] [address] [place] [address]- Care Team Providers Care Night Guard Name Role Phone Zachery ROCKWELL, Roxanna Primary Care Physician [phone] [id number] Date[facility]/25/22 - 07/02/[address] [place] [address]- Attending Physician: Jered Castro Referring Physician: Destiny PAVON, Julia Gomez Allergies, Adverse Reactions, Alerts Substance Reaction Severity [...] Effective Dates Status Health Status Inform ant HLD (hyperlipidemia)(Confirmed) Active HTN (hypertension)(Confirmed) Active Macromastia(Confirmed) Active Prediabetes(Confirmed) Active Vital Signs Most recent to oldest [Reference Range]: 1 Height 163 cm (06/25/22 1:30 PM) Pulse Rate [55-90 bpm] 90 bpm (06/25/22 1:30 PM) Blood Pressure [90-138/55-84 mm Hg] 145/ 79mm Hg *H* (06/25/22 1:30 PM) Temperature [96.8-100.4 DegF] 98.0 DegF (06/25/22 1:30 PM) Blood pressure sites Arm, left (06/25/22 1:30 PM) Temperature Route Temporal (06/25/22 1:30 PM) Social History Social History Type Response Smoking Status Current every day eduar anglin entered on: 04/08/18 Sex Care Team Personnel Name: Roxanna Bingham MD Address: [address] [place] [address] [address] [place] [address]
--- OUTSIDE RECORDS SUMMARY | 2024-02-13 11:20 | XMS_ITS | Continuity of Care Document ---
Author Organization [facility] Address [address] [place] [address]- Care Team Providers Care Stamping Mill Tender Name Role Phone Roxanna Bingham MD Primary Care Physician [phone] En[place] [facility] [place] [place] Date(s): 06/18/23 - 07/18/23 [facility] [address] [place] [address]- Attending Physician: Yvette Downing Admitting Physician: AdmYvette barboza Referring Physician: AdmtrYvette Allergies, Adverse Reactions, Alerts Substance Reaction Severity Status sulfADIAZINE Unknown Active Medications Albuterol (Eqv-Proventil HFA) 90 mcg/inh inhalation aerosol 0 Refills, Maintenance, 06/18/23 12:29:00 EDT, Partial fill upon patient request if the prescription is for a schedule II opioid drug. Start Date: 06/18/23 Status: Ordered diclofenac sodium 1% topical cream 0 Refills, Maintenance, 07/30/21 14:33:00 EDT, Partial fill upon patient request if the prescription is for a schedule II opioid drug. Start Date: 07/30/21 Status: Ordered Escitalopram By Mouth, Daily, 0 Refills, Maintenance, 09/17/22 10:50:00 EST, Partial fill upon patient request if the prescription is for a schedule II opioid drug. Start Date: 09/17/22 Status: Ordered escitalopram 5 mg oral tablet TAKE 1 TABLET BY MOUTH EVERY DAY Start Date: 06/18/23 Status: Ordered fluconazole 150 mg oral tablet 1 tablet = 150 mg, By Mouth, Once, # 1 tablet, 0 Refills, Maintenance, 06/18/23 12:29:00 EDT, Tablet, Partial fill upon patient request if the prescription is for a schedule II opioid drug. Start Date: 06/18/23 Status: Ordered losartan 100 mg oral tablet TAKE 1 TABLET BY MOUTH EVERY DAY Start Date: 06/18/23 Status: Ordered losartan 50 mg oral tablet [...] opioid drug. Start Date: 09/17/22 Status: Ordered olmesartan 40 mg oral tablet 1 tablet = 40 mg, By Mouth, Daily, # 90 tablet, 0 Refills, Maintenance, 06/18/23 12:28:00 EDT, Tablet, Partial fill upon patient request if the prescription is for a schedule II opioid drug. Start Date: 06/18/23 Status: Ordered Ozempic 2 mg/3 mL (0.25 mg or 0.5 mg dose) subcutaneous solution 0 Refills, Maintenance, 06/18/23 12:29:00 EDT, Partial fill upon patient request if the prescription is for a schedule II opioid drug. Start Date: 06/18/23 Status: Ordered QUEtiapine 25 mg oral tablet 25 mg, 1, tablet, By Mouth, Daily, # 90 tablet, Refills 0, Maintenance, 06/18/23 12:29:00 EDT, Partial fill upon patient request if the prescription is for a schedule II opioid drug. Start Date: 06/18/23 Status: Ordered rosuvastatin 5 mg oral tablet TAKE 1 TABLET BY MOUTH EVERY DAY Start Date: 06/18/23 Status: Ordered Silvadene 1% cream 1 application, Topically, Daily, # 25 Gm, 0 Refills, Maintenance, Cream Start Date: 08/14/12 Status: Ordered Simvastatin By Mouth, Daily at bedtime, 0 Refills, Maintenance Start Date: 01/13/12 Status: Ordered traMADol 50 mg oral tablet TAKE 1 TABLET BY MOUTH TWICE DAILY NEEDED Start Date: 06/18/23 Status: Ordered traZODone 100 mg oral tablet 100 mg, 1, tablet, By Mouth, Daily at bedtime, Refills 0, Maintenance, 06/18/23 12:29:00 EDT, Partial fill upon patient request if the prescription is for a schedule II opioid drug. Start Date: 06/18/23 Status: Ordered Ultram ER 200 mg oral [...] History Social History Type Response Smoking Status 10 or more cigarette s (1/2 pack or more)/day in last 30 days entered on: 06/18/23 Sex Patient Care team information Care Team Personnel Name: Roxanna Bingham MD Position: [facility] Outreach Member Role: PCP Address: Address: [address] [place], [place] [id number] [place] [address]- Name: Aleksandra Bullock RN Position: [facility] SN RN Member Role: Primary Care Nurse Care Team Related Persons Name: FREDDY PLASCENCIA Address: [place], [place] Name: CHECO NOBLES Address: home [address] [place] [address]
--- OUTSIDE RECORDS SUMMARY | 2024-02-13 11:20 | XMS_ITS | Continuity of Care Document ---
Author Organization [facility] ter Address [address] [place] [id number]- Care Team Providers Care Garment Examiner Name Role Phone Roxanna Bingham MD Primary Care Physician [phone] Encounter [facility] ACCT R [id number] Date(s): 08/15/23 - 08/26/[address] [address]- Discharge Disposition: A-Transfer SNF Attending Physician: Johnson Acosta MD Admitting Physician: Sabina Dao MD Referring Physician: Not on Staff, Referring MD Allergies, Adverse Reactions, Alerts Substance Reaction Severity Status sulfADIAZINE Unknown Active Medications acetaminophen 325 mg oral tablet 975 mg, By Mouth, 3 times a day, Refills 0, Maintenance, 08/26/23 12:59:00 EDT, Partial fill upon patient request if the prescription is for a schedule II opioid drug. Start Date: 08/26/23 Status: Ordered bisacodyl 10 mg rectal suppository 1 supp = 10 mg, Rectally, Daily, PRN Constipation, 0 Refills, Maintenance, 08/26/23 13:01:00 EDT, Suppository, Partial fill upon patient request if the prescription is for a schedule II opioid drug. Start Date: 08/26/23 Status: Ordered diclofenac 1% topical gel 1 application, Topically, 4 times a day, # 100 Gm, 0 Refills, Maintenance, 08/16/23 3:39:00 EDT, Gel, Partial fill upon patient request if the prescription is for a schedule II opioid drug. Start Date: 08/16/23 Status: Ordered escitalopram 5 mg oral tablet 1 tablet = 5 mg, By Mouth, Daily, # 30 tablet, 0 Refills, Maintenance, 08/16/23 3:38:00 EDT, Tablet, Partial fill upon patient request if the prescription is for a schedule II opioid drug. Start Date: 08/16/23 Status: Ordered gabapentin 100 mg oral capsule 300 mg, Capsule, By Mouth, 08/26/23 15:00:00 EDT Start Date: 08/26/23 Stop Date: 08/26/23 Status: Completed gabapentin 100 mg oral capsule 300 mg, By Mouth, 3 times a day, Refills 0, Maintenance, 08/26/23 12:59:00 EDT, Partial fill upon patient request if the prescription is for a schedule II opioid drug. Start Date: 08/26/23 Status: Ordered lidocaine 5% topical film Topically, Daily, 0 Refills, Maintenance, 08/26/23 13:00:00 EDT, Patch, Partial fill upon patient request if the prescription is for a schedule II opioid drug. Start Date: 08/26/23 Status: Ordered MiraLax Powder 1 pack/packet = 17 Gm, By Mouth, Daily, PRN Constipation, 0 Refills, Maintenance, 08/26/23 13:01:00EDT, Powder, Partial fill upon patient request if the prescription is for a schedule II opioid drug. Start Date: 08/26/23 Status: Ordered nystatin topical 981539 u/gm powder 1 application, Topically, 2 times a day, # 15 Gm, 0 Refills, Maintenance, 08/26/23 13:08:00 EDT, Powder, [id number], Partial fill upon patient request if the prescription is for a schedule II opioid drug., 1 application Topically 2 ti... Start Date: 08/26/23 Status: Ordered oxyCODONE 5 mg oral tablet 10 mg, By Mouth, Every 4 hours, PRN, for 3 days, # 24 tablet, Refills 0, Tot. Refills 0, Acute 08/29/23 13:40:00 EDT, Pain , Moderate, 08/26/23 13:40:00 EDT, Print Requisition, Partial fill upon patient request if the prescription is for a schedule II... Start Date: 08/26/23 Stop Date: 08/29/23 Status: Ordered oxyCODONE 5 mg oral tablet 10 mg, Tablet, By Mouth, Every 4 hours, PRN for Pain , Moderate, Routine, 08/23/23 23:06:00 EDT Start Date: 08/23/23 Stop Date: 08/27/23 Status: Discontinued QUEtiapine 25 mg oral tablet 50 mg, 2, tablet, By Mouth, Daily, # 60 tablet, Refills 0, Tot. Refills 0, Maintenance, 08/16/23 3:36:00 EDT, Do Not Route, Partial fill upon patient request if the prescription is for a schedule II opioid drug., 163, cm, 08/15/23 22:43:00 EDT, Height... Start Date: 08/16/23 Status: Ordered Remove Patch Start Date: 08/26/23 Status: Ordered rosuvastatin 5 mg oral tablet = 5 mg, By Mouth, Daily, 0 Refills, Maintenance, 08/26/23 13:00:00 EDT, Tablet, Partial fill upon patient request if the prescription is for a schedule II opioid drug. Start Date: 08/26/23 Status: Ordered senna 187 mg oral tablet 1 tablet = 8.6 mg, By Mouth, 2 times a day, PRN Constipation, 0 Refills, Maintenance, 08/26/23 13:01:00 EDT, Tablet, Partial fill upon patient request if the prescription is for a schedule II opioid drug. Start Date: 08/26/23 Status: Ordered tiZANidine 4 mg oral tablet 2 mg, By Mouth, 3 times a day, spasm, Refills 0, Maintenance, 08/26/23 13:00:00 EDT, Partial fill upon patient request if the prescription is for a schedule II opioid drug. Start Date: 08/26/23 Status: Ordered traZODone 100 mg oral tablet 100 mg, 1, tablet, By Mouth, Daily at bedtime, # 180 tablet, Refills 0, Maintenance, 08/16/23 3:38:00 EDT, Partial fill upon patient request if the prescription is for a schedule II opioid drug. Start Date: 08/16/23 Status: Ordered Vitamin D 56107 iu oral capsule 50,000 units, By Mouth, Every week, Refills 0, Maintenance, 08/26/23 12:59:00 EDT, Partial fill upon patient request if the prescription is for a schedule II opioid drug. Start Date: 08/26/23 Status: Ordered Problem List Condition Confirmation Course Effective Dates Status Health St atus Informant Depression Confirmed Active History of kidney stones Confirmed Active HLD (hyperlipidemia) Confirmed Active HTN (hypertension) Confirmed Active Macromastia Confirmed Active Obstructive sleep apnea Confirmed Active Prediabetes Confirmed Active Severe obesity Confirmed Active Results Radiology Reports * Exam Date Time Procedure Performing Provider Status 08/18/23 8:30 PM MRI Lumbar Spine W/O Contrast Casper De Jesus; Modified Notes: (MRI Lumbar Spine W/O Contrast) Reason For Exam: Back Pain ADDENDUM: MRI Lumbar Spine W/O Contrast Please note that as described on this examination, there are T2 and STIR hypointense lines along the inferior margin of the L5 vertebral body most consistent with fracture lines. Retrospectively, this could also be seen on prior CT of 08/15/2023. Therefore, this is most consistent with an acute/suba cute fracture in the setting of trauma with an intradiscal hematoma and prevertebral edema. WSN: [id number] Ordering Physician: Say Moctezuma Dictated By: Kera Gustafson MD Dictated Date/Time: 08/20/23 2:04 pm Reviewed By: Kera Gustafson MD Signed By: Kera Gustafson MD Signed Date/Time: 08/20/23 2:04 pm Transcribed By: CLARIBEL Transcribed Date/Time: 08/20/23 2:01 pm RESULT: MRI Lumbar Spine W/O Contrast MRI Lumbar Spine W/O Contrast INDICATION: Reason: Back Pain; Clinical Question(s): Spinal Stenosis; Order Comment: Please see Reference Text for complete list of contraindications Spinal Stenosis TECHNIQUE: MRI of the lumbar spine was performed without intravenous contrast utilizing sagittal T1, sagittal T2, sagittal STIR, axial T1, and axial T2- weighted sequences. COMPARISON: Lumbar radiographs of 11/19/2010, 09/28/2018, CT of 08/15/2023. FINDINGS: LOCALIZER: Additional entire spine T2 localizers were also obtain obtained. Sagittal T2-weighted localizer images include the cervical, thoracic, and lumbar spine. No axial images were obtained through the cervical or thoracic spine but the sagittal images do provide a limited survey examination. No abnormality of the cervical cord or significant canal stenosis is appreciated. No significant vertebral body abnormality is present. Multilevel disc bulges are present predominantly in the mid and lower cervical spine. The thoracic spine alignment is preserved. There is minimal loss of height of the T8, T9, and T7 vertebral bodies likely chronic in nature with Modic type I/II endplate marrow changes. There are endplate marrow changes throughout the thoracic spine. Thereare mild disc bulges at several levels. No significant central stenosis is present. No mass is identified. There is no evidence of discitis or osteomyelitis in the cervical or thoracic spine. NUMBERING: The study assumes 5 [id number]-[id number]-[id number] lumbar type vertebral bodies. ALIGNMENT, VERTEBRAE, MARROW, AND DISCS: There is minimal retrolisthesis of L1 on L2 and minimal anterolisthesis of L4 on L5 and L5 on S1. There is loss of height of the L5 vertebral body, new since prior examination of 2018 with extensive bone marrow edema and subtle T2 hyperintensity along the inferior cortex. There is a subtle T2 and STIR hypointense line along the inferior margin. There is widening of the L5-S1 disc with abnormal central STIR signal. There is mild prevertebral edema at L4-L5 extending into the sacrum with minimal presacral edema. There are Modic type I/II endplate marrow changes at L1-L2. There is mild increased signal within the disc. There is no prevertebral edema at this level. The bone marrow signal is otherwise preserved at the other levels. The remaining lumbar discs are preserved. CONUS: The conus is normal in signal and contour, with normal level of termination at L1-L2. PARASPINAL TISSUES: There is a 2.5 cm left adrenal mass consistent with an adrenal adenoma as per recent CT of 08/15/2023. As described above, there is prevertebral and presacral edema from L4-L5 through the visualized sacrum. The paraspinal and visualized retroperitoneal soft tissues are otherwise unremarkable. DETAILED FINDINGS BY LEVEL: T12-L1: No significant canal stenosis or neural foraminal narrowing. The disc is preserved. L1-L2: There is a mild to moderate diffuse disc bulge with mild canal stenosis with crowding of thetraversing nerve roots. There are posterior endplate spurs and facet joint arthropathy as well as disc bulge resulting in moderate bilateral foraminal stenosis. L2-L3: There is a mild to moderate diffuse disc bulge, ligamentum flavum thickening, facet joint arthropathy, and posterior endplate spurs resulting in mild bilateral foraminal stenosis. There is moderate canal stenosis in conjunction with prominent epidural fat with crowding of the traversing nerve roots. L3-L4: There is a moderate diffuse disc bulge, ligamentum flavum thickening, facet joint arthropathy, and posterior endplate spurs resulting in moderate canal stenosis with crowding of the traversingnerve roots. There is mild left and moderate right foraminal stenosis. L4-L5: There is a mild diffuse disc bulge, facet joint arthropathy, and posterior endplate spurs resulting in mild bilateral foraminal stenosis, worse on the left. There is moderate to severe canal stenosis with crowding/compression of the traversing nerve roots and compromise of the bilateral L5 traversing nerve roots. L5-S1: There is widening of the disc when compared to prior examinations with a focus of T2 hyperintensity within the disc which could represent a hematoma in the setting of a mild acute compression fracture. However, given the poor visualization of the fracture line in the T1 sequence and the extensive bone marrow edema, underlying discitis osteomyelitis cannot be entirely excluded at this time.Correlation with patient's laboratory data, history, and short-term follow-up is recommended. Thereis facet joint arthropathy, ligamentum flavum thickening, and posterior endplate spurs as well is aminimal diffuse disc bulge resulting in mild to moderate bilateral foraminal stenosis with the bilateral L5 exiting nerve roots contacting the bulging disc and posterior endplate spurs within the foramina. There is no canal stenosis. IMPRESSION: Mild loss of height of the L5 vertebra with extensive bone marrow edema and abnormal signal within the intervening disc which appears expanded. This could represent an acute/subacute fracture with anadjacent intradiscal hematoma. Mild prevertebral and presacral edema probably reactive. However, a superimposed infection cannot be entirely excluded. Correlation with patient's laboratory data, clinical history, short-term follow-up is recommended. Degenerative changes at L2-L3 endplates as described. Multilevel degenerative changes of the lumbar spine with moderate to severe canal stenosis from L2 through L5 as described level by level. Other findings as described. An actionable message ([place]) has been communicated via the [employer] system on 08/19/2023 9:52 AM, Message ID [id number]. WSN: [id number] Ordering Physician: Say Moctezuma Dictated By: Kera Gustafson MD Dictated Date/Time: 08/19/23 9:52 am Reviewed By: Kera Gustafson MD Signed By: Kera Gustafson MD Signed Date/Time: 08/19/23 9:52 am Transcribed By: CLARIBEL Transcribed Date/Time: 08/19/23 9:41 am * Exam Date Time Procedure Performing Provider Status 08/19/23 6:45 AM XR Hip Comp 2 Views Left Irving Vargas; Auth (Verified) Notes: (XR Hip Comp 2 Views Left) Reason For Exam: Avascular necrosis;Pain RESULT: Hip Comp 2 Views Left Hip Comp 2 Views Right, Hip Comp 2 Views Left Reason: Pain; Clinical Question(s): avascular necrosis COMPARISON: Plain films 09/28/2018. FINDINGS: No fracture or dislocation. Flattening of the bilateral femoral heads with associated subchondral sclerosis. IMPRESSION: Sclerosis and flattening of bilateral femoral heads, most likely representing avascular necrosis with subchondral bone collapse. I have personally reviewed the images and I agree with this report. WSN: [id number] Ordering Physician: Say Moctezuma Dictated By: Justin Da Silva MD Dictated Date/Time: 08/19/23 10:14 a Reviewed By: Rashaad Busby MD, V Signed By: Rashaad Busby MD, V Signed Date/Time: 08/19/23 10:19 am Transcribed By: CLARIBEL Transcribed Date/Time: 08/19/23 10:11 am * Exam Date Time Procedure Performing Provider Status 08/19/23 6:45 AM XR Hip Comp 2 Views Right Brittany Vargas; Auth (Verified) Notes: (XR Hip Comp 2 Views Right) Reason For Exam: avascular necrosis;Pain RESULT: Hip Comp 2 Views Right Hip Comp 2 Views Right, Hip Comp 2 Views Left Reason: Pain; Clinical Question(s): avascular necrosis COMPARISON: Plain films 09/28/2018. FINDINGS: No fracture or dislocation. Flattening of the bilateral femoral heads with associated subchondral sclerosis. IMPRESSION: Sclerosis and flattening of bilateral femoral heads, most likely representing avascular necrosis with subchondral bone collapse. I have personally reviewed the images and I agree with this report. WSN: [id number] Ordering Physician: Say Moctezuma Dictated By: Justin Da Silva MD Dictated Date/Time: 08/19/23 10:14 a Reviewed By: Rashaad Busby MD, V Signed By: Rashaad Busby MD, V Signed Date/Time: 08/19/23 10:19 am Transcribed By: CLARIBEL Transcribed Date/Time: 08/19/23 10:11 am * Exam Date Time Procedure Performing Provider Status 08/15/23 3:[address] Lumbar Spine W/O Contrast Charisse Anderson; Yaron (Verified) Notes: (CT Lumbar Spine W/O Contrast) Reason For Exam: Spine fracture, lumbar, traumatic;Other: RESULT: CT Lumbar Spine W/O Contrast CT Lumbar Spine W/O Contrast Hx of Present Illness: reports lower back pain with radiation to BLE x2wks after having a bowel movement, sts pain is worse to her LLE with numbness to feet and 1-3rd fingers on R hand. reports some brief chest pressure earlier today but denies at present.; Reason: Other:; Spine fracture, lumbar, traumatic; Clinical Question(s): Fracture Dislocation; Order Comment: CLINICAL QUESTION: Fracture/Dislocation TECHNIQUE: Thin section axial images were acquired through the lumbar spine. Bone and soft tissue algorithms were reconstructed along with coronal and sagittal reformats. Weight-based protocol using automatic tube modulation was used to optimize exposure parameters. CTDIvol Body: 67.40 mGy, DLP Body: 2072 mGy*cm. COMPARISON: None FINDINGS: Supervisor [place] Findings, Lines and Tubes: None. Spine: No fractures or bone lesion. There is minimal retrolisthesis of L1 on L2 and L2 on L3 as well as subtle anterolisthesis of L4 onL5. Alignment is otherwise maintained. There is multilevel facet arthropathy which is most advancedat the L4-L5 and L5-S1 levels. Soft tissues: No acute abnormality in the paravertebral soft tissues. There is a 2.5 cm left adrenal nodule with low density compatible with an adrenal adenoma. There are scattered atherosclerotic vascular calcifications. There are nonobstructing punctate bilateral renal calculi, right more numerous than left. DETAILED FINDINGS BY LEVEL: L1-L2: Disc bulge asymmetric towards the right. Facet spurring. Mild spinal canal narrowing. Mild to moderate bilateral neural foraminal narrowing. L2-L3: Diffuse disc bulge, ligamentum flavum thickening, and facet spurring resulting in at least moderate canal stenosis, mild to moderate bilateral neural foraminal narrowing. L3-L4: Diffuse disc bulge with ligamentum flavum thickening and facet arthropathy resulting in at least moderate canal stenosis and in mild to moderate right neural foraminal narrowing. Mild to moderate bilateral neural foraminal narrowing. L4-L5: Diffuse disc bulge with ligamentum flavum thickening and advanced facet arthropathy with moderate to severe canal stenosis, narrowing of the subarticular zones possibly crowding the traversingL5 nerve roots bilaterally, and mild to moderate bilateral neural foraminal narrowing. L5-S1: Diffuse disc bulge and facet arthropathy. There is severe left neural foraminal narrowing due to endplate osteophytes and disc bulge. Mild right neural foraminal narrowing. No significant canal stenosis. IMPRESSION: No acute fracture or subluxation. Degenerative changes as described above. 2.5 cm left adrenal adenoma. Consider biochemical assays to determine functional status and excludepheochromocytoma. Recommend no further imaging evaluation. CITATION: [place] MCCARTHY, et al. Management of Incidental Adrenal Masses: A White Paper of the ACR Incidental Findings Committee. J Am Enrico Radiol. 2017 Jun;14(8):2519-4209. WSN: [id number] Ordering Physician: Birdie Mcdonald Dictated By: Dian Coffman MD Dictated Date/Time: 08/15/23 3:19 pm Reviewed By: Dian Coffman MD Signed By: Dian Coffman MD Signed Date/Time: 08/15/23 3:19 pm Transcribed By: CLARIBEL Transcribed Date/Time: 08/15/23 3:13 pm * Exam Date Time Procedure Performing Provider Status 08/15/23 12:47 PM Chest Single Frontal View Annabella Lila nixai; Auth (Verified) Notes: (Chest Single Frontal View) Reason For Exam: pain;Other: RESULT: Chest Single Frontal View Chest Single Frontal View Hx of Present Illness: reports lower back pain with radiation to BLE x2wks after having a bowel movement, sts pain is worse to her LLE with numbness to feet and 1-3rd fingers on R hand. reports some brief chest pressure earlier today but denies at present.; Reason: Other:; pain; Clinical Question(s): Pneumonia COMPARISON: Chest radiograph 09/28/2018 FINDINGS: Somewhat suboptimal exam due to patient habitus and exam technique. LINES AND TUBES: None. LUNGS AND PLEURA: Clear lungs. Normal pulmonary vascularity. No pleural effusion. No pneumothorax. HEART, MEDIASTINUM AND PAULO: Heart is at the upper limits of normal for size accounting for exam technique and AP projection. Normal mediastinal and hilar contour. BONES AND SOFT TISSUES: No acute abnormality. IMPRESSION: No acute abnormality. WSN: [id number] Ordering Physician: Birdie Mcdonald Dictated By: Dian Coffman MD Dictated Date/Time: 08/15/23 12:53 p Reviewed By: Dian Coffman MD Signed By: Dian Coffman MD Signed Date/Time: 08/15/23 12:53 pm Transcribed By: CLARIBEL Transcribed Date/Time: 08/15/23 12:52 pm Vital Signs Most recent to oldest [Reference Range]: 1 2 3 Height 163 cm (08/26/23 2:39 PM) 163 cm (08/24/23 12:01 AM) 163 cm (08/23/23 8:26 PM) Weight 112.7 kg (08/15/23 10:43 PM) Oxygen Saturation [94-100 %] 93 % *L* (08/26/23 2:39 PM) 93 % *L* (08/26/23 11:00 AM) 93 % *L* (08/26/23 7:00 AM) Pulse Rate [55-90 bpm] 72 bpm (08/26/23 2:39 PM) 69 bpm (08/26/23 11:00 AM) 88 bpm (08/26/23 7:00 AM) Body Mass Index [18.5-24.99 kg/m2] 42.42 kg/m2 *>HHI* (08/15/23 10:43 PM) Blood Pressure [90-138/55-84 mm Hg] 134/62mm Hg (08/26/23 2:39 PM) 153/63mm Hg *H* (08/26/23 11:00 AM) 136/69mm Hg (08/26/23 7:00 AM) Respiratory Rate [16-30 br/min] 18 br/min (08/26/23 3:21 PM) 18 br/min (08/26/23 3:21 PM) 18 br/min (08/26/23 2:39 PM) Temperature [96.8-100.4 DegF] 98.5 DegF (08/26/23 2:39 PM) 97.9 DegF (08/26/23 11:00 AM) 97.9 DegF (08/26/23 7:00 AM) Liters per Minute 0 L/min (08/15/23 10:43 PM) 2 L/min (08/14/23 11:10 AM) Mode of Delivery (Oxygen) Room air (08/26/23 2:39 PM) Room air (08/26/23 11:00 AM) Room air (08/26/23 7:00 AM) Blood pressure sites Arm, right (08/26/23 2:39 PM) Arm, left (08/26/23 11:00 AM) Arm, left (08/26/23 7:00 AM) Temperature Route Oral (08/26/23 2:39 PM) Oral (08/26/23 11:00 AM) Oral (08/26/23 7:00 AM) Dry Weight 112.7 kg (08/15/23 10:43 PM) 123 kg (08/15/23 8:22 PM) 123 kg (08/14/23 6:36 PM) Weight Obtained Via Bed scale (08/15/23 10:43 PM) Dry Weight Obtained Via Bed scale (08/15/23 10:43 PM) Patient lift hanging scale (08/14/23 11:10 AM) Social History Social History Type Response Smoking Status 10 or more cigarette s (1/2 pack or more)/day in last 30 days entered on: 06/18/23 Sex History and physical note * Bayron Moore DO: MODIFY, MODIFY, PERFORM, MODIFY, MODIFY, MODIFY Event Display: History and Physical Hospital Authored Date: [id number] Patient: ??MARYCARMEN WINTER ? Age:??67 Years?Sex:??Female?:??1955?? Chief Complaint/Reason for Consultation bilat leg pain weakness, tx at [facility] and left ama as she refused rehab. History of Present Illness This is a 67-year-old female with past medical history including??hypertension, hyperlipidemia, obstructive sleep apnea,??depression,??osteoarthritis,??and history of kidney stones,??who currently presents to the hospital??with complaint of??lower back pain??radiating to the bilateral legs,??left worse than right, with numbness??of her??bilateral toes??over the past 2-1/2 weeks.?? The patient denies any history of preceding trauma.?? She reports??similar symptoms in the past,??but not as severeas presently.?? She denies any bowel or bladder incontinence.?? In the ED, she was noted to be stable in terms of her vital signs.?? Lab work obtained on this patient showed her to have a normal white blood cell count of 7.4 and normal hemoglobin.?? Other labs were all unremarkable except for slightly elevated AST of 41.?? High-sensitivity troponin was 10, 10, and then 8.?? UA on this patient diddemonstrate trace albumin with 1+ ketones, 1+ hemoglobin, trace leukocytes, 3 WBCs, 6 RBCs, and slight bacteria.?? I chest x-ray on this patient showed no acute abnormality.?? CT of the lumbar spine showed no acute fracture or subluxation with degenerative changes including multiple regions of discbulge with moderate to severe canal stenosis at L4-L5 and likely crowding of the traversing L5 nerve roots bilaterally.?? The patient was also noted to have a 2.5 cm left adrenal adenoma.?? The patient is now admitted for further management. Review of Systems A complete review of systems was obtained and noted to be negative except as stated above in the HPI. Objective Measurements?? Height: 163 cm (08/15/23) Weight: 112.7 kg (08/15/23) Dry Weight: 112.7 kg (08/15/23) Body Mass Index:??42.42 kg/m2??Critical (08/15/23) ? Vital Signs?? Temperature: 97.6 DegF (08/15/23 22:43:00) Temperature Route: Oral (08/15/23 22:43:00) Pulse Rate: 68 bpm (08/15/23 22:43:00) Respiratory Rate: 18 br/min (08/16/23 02:10:00) Systolic Blood Pressure: 119 mm Hg (08/15/23 22:43:00) Diastolic Blood Pressure: 57 mm Hg (08/15/23 22:43:00) Blood pressure sites: Arm, left (08/15/23 22:43:00) Mean Arterial Pressure: 78 mm Hg (08/15/23 22:43:00) Pulse Pressure: 62 mm Hg (08/15/23 22:43:00) Oxygen Saturation: 96 % (08/15/23 22:43:00) Liters per Minute: 0 L/min (08/15/23 22:43:00) Mode of Delivery (Oxygen): Room air (08/15/23 22:43:00) Early Warning Score: 2 (08/16/23 02:11:32) ? Physical Exam General: Alert, in no acute cardiopulmonary distress. Mental Status: Oriented to person, place and time. Normal affect. Head: Normocephalic. Eyes: Pupils are equal, round and reactive to light. Extraocular muscles intact. Ear, Nose and Throat: Oropharynx clear, mucous membranes moist. Ears and nose without masses, lesions or deformities. Trachea midline. Neck: Supple, Full range of motion. Respiratory: Clear to auscultation and percussion. No wheezing, rales or rhonchi. Cardiovascular: Heart sounds normal. Regular rate and rhythm, no murmurs, rubs or gallops. Gastrointestinal: Abdomen soft, non-tender, non-distended. Normal bowel sounds. No pulsatile mass. No hepatosplenomegaly. Neurologic: Cranial nerves II-XII grossly intact. ??Decreased ability to lift left leg off the bed compared to the right side,??but exam limited by pain.?? Appropriate dorsi and plantarflexion bilaterally in the??extremities..Sensation intact bilaterally??except for numbness to??the right??first??(thumb) to third digits.. Skin: No rashes or lesions. No petechiae or purpura. No edema. Musculoskeletal: No cyanosis or clubbing. No gross deformities. Normal range of motion. Assessment/Plan This is a 67-year-old female with past medical history as noted above,??who currently presents to the hospital??with complaint??of increased low back pain in the last??2-1/2 weeks.?? She was noted onCT imaging of her lumbar spine to have??degenerative??changes??with moderate to severe lumbar spinal stenosis.?? She is now admitted for further management. ?? Acute low back pain ??(M54.50) This patient will be admitted to an observation medical bed.?? She presents with acute low back pain that is been progressively worsening in the last 2-1/2 weeks,??with no history of trauma precedingher symptoms.?? She does have evidence of degenerative disc disease??and moderate to severe??canal stenosis.?? For now, we will treat her??with??pain medication in the form of Dilaudid as needed, along with lidocaine patch, ibuprofen as needed, and Tylenol as needed.?? We will ask PT to evaluate this patient in the morning.?? Can consider obtaining MRI of the lumbar spine if patient's symptoms not improving, but no red flag??signs or symptoms presently. ?? Depression. We will continue patient on her home medicines including escitalopram,??Seroquel, and trazodone. ?? CODE STATUS. ??Patient is a full code. ?? DVT prophylaxis.?? We will use subcu Lovenox and encourage early mobilization. ?? Patient seen on August 15, 2023. Total time spent with patient and in coordination of care: including reviewing the chart/medical records, speaking with the patient, formulating and discussing the treatment plan, and documenting thefindings and encounter:?50 + min Histories Allergies Allergies ?(Active and Proposed Allergies Only) sulfADIAZINE? (Severity: Unknown severity, Onset: Unknown) ?Reactions: Unknown ? Past Medical History/Problem List Active Problems??(8) Depression History of kidney stones HLD (hyperlipidemia) HTN (hypertension) Macromastia Obstructive sleep apnea Prediabetes Severe obesity ? Past Surgical History Breast reduction Appendectomy Laparoscopic cholecystectomy ? Social History Patient lives??with her mom Alcohol Details:??Use: Never. Substance Abuse Details:??Patient denies Tobacco Details:??Use: Currently smokes 1/2 pack of cigarettes a day, but has smoked as much is 1 pack a day??and began smoking at age 9. ?? Family Medical History Mother living at age 101??with??pneumonia. ??Father at 54 from colon cancer. Medications Home Medications??(Confirmed with the patient) Diclofenac Topical (diclofenac 1% topical gel)?1?maria victoria?Topically?4 times a day Escitalopram (escitalopram 5 mg oral tablet)?1?tab(s)?5?Milligram?By Mouth?Daily Quetiapine (QUEtiapine 25 mg oral tablet)?50?Milligram?2?tablet?By Mouth?Daily Tramadol (traMADol 50 mg oral tablet)?1?tab(s)?50?Milligram?By Mouth?Every 12 hours?as needed?as needed for pain Trazodone (traZODone 100 mg oral tablet)?100?Milligram?1?tablet?By Mouth?Daily atbedtime ? Results Recent Labs CARDIAC High Sensitivity Troponin (HSTnT) 8 ng/L ()?? 08/15/2023 05:05 ?? UA/URINALYSIS Appear/Color, Urine YELLOW ()?? 08/15/2023 11:00 Specific Firth, Urine 1.032 (High)?? 08/15/2023 11:00 pH, Urine 6.0 ()?? 08/15/2023 11:00 Albumin, Urine TRACE (Abnormal)?? 08/15/2023 11:00 Glucose, Urine NEGATIVE ()?? 08/15/2023 11:00 Ketones, Urine 1+ (Abnormal)?? 08/15/2023 11:00 Bilirubin, Urine NEGATIVE ()?? 08/15/2023 11:00 Hemoglobin, Urine 1+ (Abnormal)?? 08/15/2023 11:00 Nitrite, Urine NEGATIVE ()?? 08/15/2023 11:00 Leukocyte, Urine TRACE (Abnormal)?? 08/15/2023 11:00 Urobilinogen NORMAL mg/dL ()?? 08/15/2023 11:00 WBC's, Urine 3 /HPF ()?? 08/15/2023 11:00 RBC's, Urine 6 /HPF (High)?? 08/15/2023 11:00 Bacteria SLIGHT HPF (Abnormal)?? 08/15/2023 11:00 Squamous Epith 4 /HPF ()?? 08/15/2023 11:00 Mucus SLIGHT /LPF ()?? 08/15/2023 11:00 Hold Urine Culture Testing available 48 hours from time of collection. ()?? 08/15/2023 11:00 ?(08/15/2023 12:47 EDT Chest Single Frontal View) IMPRESSION: ?? No acute abnormality. [1] ? (08/15/2023 15:[address] Lumbar Spine W/O Contrast) IMPRESSION:? No acute fracture or subluxation. Degenerative changes as described above. 2.5 cm left adrenal adenoma. Consider biochemical assays to determine functional status and excludepheochromocytoma. Recommend no further imaging evaluation. [2] [1]??Chest Single Frontal View; Dian Coffman MD 08/15/2023 12:47 EDT [2]??CT Lumbar Spine W/O Contrast; Dian Coffman MD 08/15/2023 15:07 EDT Hospital Progress note * Zaria Diaz: VERIFY, PERFORM, SIGN Event Display: Progress Note Hospital Authored Date: Patient: MARYCARMEN WINTER Age: 67 years Sex: Female : 1955 Associated Diagnoses: None Author: Zaria Diaz Findings Problem Related to Alteration in Neurological : Alteration in Neurological Function/new 08/26/2023 12:00 EDT Alteration in Neuro status Related to Other: back pain, numbess to legs and feet Goals & Outcomes, Neurological Lab studies/diagnostic tests within pt specific limits, Pt is safe with transfers & activities, Pt will be discharged without infection, Pt will be hemodynamically stable, Pt will be Neurologically stable, Pt will become pain free with appropriate intervention, Pt will maintain intact skin integrity, Pt will remain free from injury, Pt will state importance of adhering to medication regime, Pt/caregiver will state understanding of plan/goals of care, Pt/caregiver will state understanding of the D/C plan Interventions, Neurological Assess/monitor for abnormal posturing, Assess/monitor for gaze pattern/extraocular movements, Assess/monitor for increased Intracranial Pressure, Assess/monitor neurologicstatus, Assess/monitor VS per unit standards & prn, Collaborate w/ provider to implement appropriate guidelines, Collaborate with provider re: medication regime, Identify psychosocial issues related to diagnosis/illness, If no bowel movement in 3 days activate bowel regime, Keep patient's head & body in good alignment, Maintain patient safety if unsteady gait, Maintain strict intake &output, Monitor Fluid & Electrolytes, Serum Osmolarity, Monitor for headaches, nausea, vomiting, Monitor speech fluency, aphasia, word finding difficulty, Physical assessment per unit standards, Provide emotional support to Pt/caregiver, Teach & encourage deep breath & cough exercises Goals/Interventions, Neurological Yes Neurological, Problem Start 08/15/2023 0:31 Reviewed plan with, Neurological Patient Patient Progression, Neurological Pt progressing according to plan . Nursing Data Neurological Data. : Neurological Data. 08/26/2023 8:00 EDT Neurological Symptoms Altered sensation or tingling, Back pain, Lack of coordination, Weakness or loss of muscle strength Orientated to person, place, time Person, Place, Time, Event Characteristics of Speech Clear and normal Pupil description, left Round Pupil description, right Round Pupil reaction, left Brisk Pupil reaction, right Brisk Pupil Size, Left 3 mm Pupil Size, Right 3 mm Strength LUE 5-Active movement against gravity & full resistance Strength RUE 5-Active movement against gravity & full resistance Strength LLE 2-Active movement horizontally Strength RLE 2-Active movement horizontally Tone LUE Normal Tone RUE Normal Tone LLE Rigid Tone RLE Rigid Sensation LUE Intact Sensation RUE Intact Sensation LLE Intact Sensation RLE Intact Movement LUE Spontaneous, Flexes to pain, To command Movement RUE Spontaneous, Flexes to pain, To command Movement LLE Flexes to pain, To command Movement RLE Flexes to pain, To command Gait Unable to assess Response Eye Opening Spontaneously Motor Response-Adult Obeys commands Verbal Response-Adult Oriented and converses Tatinaa Coma Score 15 Neuro WNL except Eyes and Movements Conjugate gaze: Move in same direction at same speed Swallow - Neuro Normal . Respiratory/Pulmonary Data. : Respiratory/Pulmonary Data. 08/26/2023 8:00 EDT Left Upper Lobe Breath Sounds Diminished Right Upper Lobe Breath Sounds Diminished Right Middle Lobe Breath Sounds Diminished Left Lower Lobe Breath Sounds Diminished Right Lower Lobe Breath Sounds Diminished Respiratory WNL except . Evaluation Pt A&O x 4. Able to follow commands. Complains of 10/10 back pain with no relief, receiving prnoxycodone, continuing to monitor, MD notified. Complains of BL numbess and tingling to feet at baseline. PERRL 3 mm BL. MOves upper extremities with 5/5 strength, moves BLE with 2/5 strength due to pain. no facial droop or tongue deviation, clear speech. Pedal and radial pulses 2+ BL. BL Lungs dim,on room air. Denies chest pain and shortness of breath. Continent of bowel and bladder. Prima draining concentrated yellow urine. Positive bowel sounds in all 4 quadrants. Abdomen soft and nontender.Pt reported LBM 08/25 despite no documentation. Open wound in perineal area, pt refused miconazole and requested nystatin on area, MD notified. IV in R arm patent and flushing well. Bed locked and inlowest position. Call hudson wihtin reach. Safety precautions maintained. SEe cis for complete biophysical. Discharge Information Case Management Discharge Plan : Case Management Discharge Plan Data 08/26/2023 12:00 EDT Discharge Level of Care at Discharge half-way facility Discharge Nursing Homes/Rehab Facilities [facility] Discharge Transportation Arranged [facility] [address] [place] [address] Discharge Arranged Transport Date/Time 08/26/2023 15:00 Mode of Transportation Arranged Ambulance * Padmini Rader RN: PERFORM, SIGN, VERIFY Event Display: Progress Note Hospital Authored Date: [id number] Patient: MARYCARMEN WINTER Age: 67 years Sex: Female : 1955 Associated Diagnoses: None Author: Padmini Rader RN Findings Problem Related to Alteration in Neurological : Alteration in Neurological Function/new 08/25/2023 22:00 EDT Alteration in Neuro status Related to Other: back pain, numbess to legs and feet Goals & Outcomes, Neurological Lab studies/diagnostic tests within pt specific limits, Pt is safe with transfers & activities, Pt will be discharged without infection, Pt will be hemodynamically stable, Pt will be Neurologically stable, Pt will become pain free with appropriate intervention, Pt will maintain intact skin integrity, Pt will remain free from injury, Pt will state importance of adhering to medication regime, Pt/caregiver will state understanding of plan/goals of care, Pt/caregiver will state understanding of the D/C plan Interventions, Neurological Assess/monitor neurologic status, Assess/monitor VS per unit standards & prn Goals/Interventions, Neurological Yes Neurological, Problem Start 08/15/2023 0:31 Reviewed plan with, Neurological Patient, Family/caregiver not available Patient Progression, Neurological Pt progressing according to plan . Evaluation patient alert and oriented rates back pain 08/12 continued numbess to feet able to feel touch. * Nicolle Harvey RN: VERIFY, PERFORM, SIGN Event Display: Progress Note Hospital Authored Date: [id number] Patient: MARYCARMEN WINTER Age: 67 years Sex: Female : 1955 Associated Diagnoses: None Author: Nicolle Harvey RN Findings Problem Related to Alteration in Neurological : Alteration in Neurological Function/new 08/25/2023 8:00 EDT Alteration in Neuro status Related to Other: back pain, numbess to legs and feet Goals & Outcomes, Neurological Lab studies/diagnostic tests within pt specific limits, Pt is safe with transfers & activities, Pt will be discharged without infection, Pt will be hemodynamically stable, Pt will be Neurologically stable, Pt will become pain free with appropriate intervention, Pt will maintain intact skin integrity, Pt will remain free from injury, Pt will state importance of adhering to medication regime, Pt/caregiver will state understanding of plan/goals of care, Pt/caregiver will state understanding of the D/C plan Interventions, Neurological Assess/monitor neurologic status, Assess/monitor VS per unit standards & prn, Call/Report variances in assessments to provider, Collaborate w/ provider to implement appropriate guidelines, Collaborate with Nutrition, Collaborate with provider re: medication regime, Identify psychosocial issues related to diagnosis/illness, If no bowel movement in 3 days activate bowel regime, Keep patient's head & body in good alignment, Maintain patient safety if unsteady gait, Physical assessment per unit standards, Provide emotional support to Pt/caregiver Goals/Interventions, Neurological Yes Neurological, Problem Start 08/15/2023 0:31 Reviewed plan with, Neurological Patient Patient Progression, Neurological Pt progressing according to plan . Nursing Data Neurological Data. : Neurological Data. 08/25/2023 8:00 EDT Tongue Disposition Midline Neurological Symptoms Altered sensation or tingling, Back pain, Weakness or loss of muscle strength Level of Consciousness Full Consciousness Orientated to person, place, time Person, Place, Time, Event Characteristics of Speech Clear and normal Swallowing Difficulty None Pupil description, left Round Pupil description, right Round Pupil reaction, left Brisk Pupil reaction, right Brisk Pupil Size, Left 3 mm Pupil Size, Right 3 mm Strength LUE 5-Active movement against gravity & full resistance Strength RUE 5-Active movement against gravity & full resistance Strength LLE 4-Active movement against gravity & some resistance Strength RLE 4-Active movement against gravity & some resistance Tone LUE Normal Tone RUE Normal Tone LLE Normal Tone RLE Normal Sensation LUE Intact Sensation RUE Intact Sensation LLE Intact Sensation RLE Intact Movement LUE Spontaneous, To command Movement RUE Spontaneous, To command Movement LLE Spontaneous, To command Movement RLE Spontaneous, To command Gait Unable to assess Tremors None Response Eye Opening Spontaneously Motor Response-Adult Obeys commands Verbal Response-Adult Oriented and converses Tatiana Coma Score 15 1 - 10 Pain Scale Score 9 Neuro WNL except Eyes and Movements Conjugate gaze: Move in same direction at same speed Headache None Memory Intact Swallow - Neuro Normal . Evaluation AO 4. Speech clear. PERRLA. Back pain 8-08/12. PRN oxy. Numbness/tingling BLE. Itchy, PRN hydroxyzine Denies WHITMORE, dizziness, visual changes. Moves upper extremities 5/5, lowers 4/5. On RA, satting 93%. LBM 10-21. PRN senna, Miralax. IV right arm patent. Evp Strategy in for LSO brace fitting. Bed in lowest position, rails up, wheels locked, bed alarm on. Call hudson within reach. Hourly rounding maintained, will continue to monitor and document changes in [facility]. . Consult note * Regis Cortez: PERFORM, MODIFY, SIGN, VERIFY Event Display: Consultation Note Authored Date: Patient: MARYCARMEN WINTER Age: 67 years Sex: Female : 1955 Associated Diagnoses: None Author: Regis Cortez Visit Information lumbar radiculopathy Day: LOS 3 days. History of Present Illness This is a 67-year-old female with past medical history significant for hypertension, hyperlipidemia, depression, kidney stones, osteoarthritis,AVN Patient obstructive spleep apnea, macromastia, obesity, who presented to the ED with reports of back pain that started approximately 3 weeks prior. Patient indicates that she has pain radiating down the posterior aspect of her lower extremities to the ankle bilaterally and worse on the LLE. She denies any loss of bowel or bladder function however, patient indicates that when she has a bowel movement she seems to experience some relief of her pain but it gradually returns shortly there after. Patient indicated that she alternate taking Aspirin, Advil as well as Tramadol for pain with limited relief. Subsequent CT scan of the lumbar spine in part demonstrated the following: L4-L5: Diffuse disc bulge with ligamentum flavum thickening and advanced facet arthropathy with moderate to severe canal stenosis, narrowing of the subarticular zones possibly crowding the traversingL5 nerve roots bilaterally, and mild to moderate bilateral neural foraminal narrowing. L5-S1: Diffuse disc bulge and facet arthropathy. There is severe left neural foraminal narrowing due to endplate osteophytes and disc bulge. Mild right neural foraminal narrowing. No significant canal stenosis. MRI of lumbar spine demonstrated the following: Mild loss of height of the L5 vertebra with extensive bone marrow edema and abnormal signal within the intervening disc which appears expanded. This could represent an acute/subacute fracture with anadjacent intradiscal hematoma. Mild prevertebral and presacral edema probably reactive. However, a superimposed infection cannot be entirely excluded. Correlation with patient's laboratory data, clinical history, short-term follow-up is recommended. Please see radiological report for full details Past Medical History Problem list All Problems Severe obesity / SNOMED CT 4148378983 / Confirmed Prediabetes / SNOMED CT 4287606493 / Confirmed Obstructive sleep apnea / SNOMED CT 685734394 / Confirmed Macromastia / ICD-9-CM 611.1 / Confirmed HTN (hypertension) / SNOMED CT 4669227948 / Confirmed HLD (hyperlipidemia) / SNOMED CT 68182184 / Confirmed History of kidney stones / SNOMED CT 2453317765 / Confirmed Depression / SNOMED CT 75275408 / Confirmed Allergies Allergic Reactions (Selected) Severity Not Documented SulfADIAZINE- Unknown. Surgical History As per EMR Breast reduction Appendectomy Laparoscopic cholecystectomy Social History Social History Alcohol Details: Use: Never. Substance Abuse Details: Use: Current. Type: Marijuana. Other: Daily. Tobacco Details: Use: 10 or more cigarettes (1/2 pack or more)/day in last 30 days. Details: Current every day smoker . Family History No reported disc disease Review of Systems +Back pain, bilateral posterior lower extremity pain, decrease sensation of the anterior aspect of RLE below the knee Denies bowel or bladder dysfunction Physical Examination Physical Exam GENERAL: In no apparent distress HEENT: PERRLA ,Moist mucous membrane. Neck supple. Trachea midline RESPIRATORY: Equal rise and fall of chest, unlabored ABDOMEN/GI: Non-distended, soft, non-tender, normal bowel sounds EXTREMITIES: No pitting edema [employer]CE[employer] FRE[employer] MANAGER: Alert and oriented x 3 -eye open spontaneously - Speech clear fluent and appropriate - EOMI -Following commands - Moving all extremities -Strength -5/5 bilat upper and lower extremity LLE : Hipflexion 4/5, DF/PF +4/5 EHL +4/5 (limitation due to pain) RLE Hip flexion +4/5(limitation due to pain), DF/PF 5/5, EHL 5/5 strength of Knee extension was not assessed due to pain -Sensation grossly intact except for the anterior aspect of the weaver and dorsal aspect of the RLE GCS: -Eyes opening -Motor -Verbal PSYCHIATRIC: Calm and co-operative HEME: No lymphadenopathy. SKIN: Warm and dry. Impression and Plan COMPREHENSIVE PLAN 67 y/o female with lumbar radiculopathy of both lower extremities Recommendation No acute neurosurgical intervention Pain control Please obtain MRI w+w/o contrast of the lumbar spine Continue support care Any question page [phone] Attestation: Case discussed with attending physician: Rod Zhu MD. . * Tony ROCKWELL, Eduardo Bonilla: PERFORM, MODIFY Event Display: Consultation Note Authored Date: [id number] Patient: ??MARYCARMEN WINTER ? Age:??67 Years?Sex:??Female?:??1955?? Chief Complaint/Reason for Consult bilat leg pain weakness, tx at [facility] and left [facility] as she refused rehab. History of Present Illness 67yo F with h/o sleep apnea, pre-DM, obesity, back pain presented to the ED with several day h/o flare up of her back pain, worse on the left radiating into the left lateral hip area assoc with tinging and numbness in bilat feet. She states this flare up of pain started after having a BM. She has had several day h/o worsening back pain. She states her PCP ordered home PT but only had one session so far. She denies any bowel/bladder dysfunction and no saddle anesthesia. Neurontin was started butshe states it started a tingling sensation in her feet so she is requesting it be d/c'd. CT L spineshowed multilevel degenerative changes with moderate to severe stenosis at L4-5. The patient has seen [facility] in the past. She underwent MRI L spine in 2019 which showed multilevel degenerative changes with mod stenosis at L4-5 and mod-severe stenosis at L4-5. She denies any trial of LESI at that time. Incidental findings of left adrenal mass and AVN right hip were seen. Pt states she has bone on bone arthritis of the hips bilateral. Lives with her mother. Has PEOPLESOFT ANALYST care. Indep with mobility with a rollator. Assistance with ADLs. Review of Systems 14 point review of systems negative except as noted above in HPI. Physical Exam Vitals & Measurements T:??98.4?F?? HR:??58??(Peripheral)?? RR:??16?? BP:??120/55?? SpO2:??95%?? HT:??163??cm?? WT:??112.7??kg?? BMI:??42.42?? Gen: Alert, oriented x 3 in NAD HEENT: no JVD, PERRL CV: Reg, no murmurs Chest: CTA bilat Abd: +BS, soft, NT Exts: trace pedal edema; pain to palpation and PROM of bilat hips. Neuro: CN II-XII intact MMT: Upper exts 5/5 ?? limited by pain RLE:? LLE: HF? 4/5? HF? 3-/5 Quad?? 4/5? Quad?? 4/5 HS? 5/5? HS? 5/5 DF? 5/5? DF? 5/5 EHL? 5/5?EHL? 5/5 PF? 5/5? PF?5/5 Medina's negative Babinski absent Sensory: intact LT and PP DTRs: biceps and patella 1+ bilat SLR: mildly pos on left. Drake positive Assessment/Plan 67yo F with h/o back pain, sleep apnea, pre-DM admitted with acute flare up of back pain with radicular symptoms on the left side. Pt also may have AVN left hip complicating the clinical picture. Recommend MRI L spine to assess for progression of her degenerative changes seen in 2019. Recommend xray bilat hips Defer incidental adrenal mass workup to primary team. ? Recommendations: ?? Activity:??Mobilize with PT Bowel Regimen:??Monitor on current regimen Bladder:??Bladder scan for post void residual Q shift X 3 to rule out retention. Straight cath if > 250 ml. Cognition/psychopharmacology:?Likely at baseline.?? DVT prophylaxis:??Lovenox ?? Pain Management: She does not need IV pain medications, recommend D/C IV Dilaudid--pt is in agreement. Increase Oxycodone to 5mg q 4 hrs prn mod-severe pain. Stop Neurontin per patient request. Schedule Tylenol 1000mg tid Continue Lidcaine patch. Continue Tizanidine. ?? Spasticity:??None ?? Swallow: Not as issue ?? Current rehab treatment & further recommendations: Occupational Therapy:??probably not needed. Physical Therapy: following Speech Therapy:??Not needed. ?? Disposition: To be determined. ?? Code Status:??Full Resuscitation HCP:??Has HCP in [facility] D/w Dr. Unger and Dr. Moctezuma. ?? Problem List/Past Medical History Ongoing Depression History of kidney stones HLD (hyperlipidemia) HTN (hypertension) Macromastia Obstructive sleep apnea Prediabetes Severe obesity Procedure/Surgical History No qualifying data available. Home Medications Diclofenac Topical: 1 application, Topically, 4 times a day Escitalopram: 5 mg = 1 tablet, By Mouth, Daily Quetiapine: 50 mg = 2 tablet, By Mouth, Daily Tramadol: 50 mg = 1 tablet, By Mouth, Every 12 hours, PRN (as needed for pain) Trazodone: 100 mg = 1 tablet, By Mouth, Daily at bedtime Hospital Medications Medications (25) Active SCHEDULED: (12) Enoxaparin 40 mg Inj (Enoxaparin Inj) ??40 mg 0.4 mL, Subcutaneous Injection, 2 times a day Escitalopram 10 mg Tablet (escitalopram 10 mg oral tablet) ??5 mg, By Mouth, Daily Insulin Lispro 100 units/mL Inj (3mL) (Insulin LISPRO Scale) ??2-8 units, Subcutaneous Injection, 3times a day before meals Lidocaine 5% Topical Patch (Lidocaine 5% Patch) ??1 each, Topically, Daily Losartan 50 mg Tablet (losartan 50 mg oral tablet) ??100 mg, By Mouth, Daily NaCl 0.9% Flush 3ml (NaCL 0.9% Flush) ??3 mL, IV Push, Every 8 hours Nystatin Powder ??1 application, Topically, 2 times a day Quetiapine 25 mg Tablet (QUEtiapine 25 mg oral tablet) ??50 mg, By Mouth, Daily at bedtime Remove Patch (Remove Lidocaine Patch) ??1 each, Topically, Daily at bedtime Rosuvastatin 5 mg Tablet (rosuvastatin 5 mg oral tablet) ??5 mg, By Mouth, Daily Tizanidine 4 mg Tablet (tiZANidine 4 mg oral tablet) ??2 mg, By Mouth, 3 times a day Trazodone 50 mg Tablet (traZODone 50 mg oral tablet) ??100 mg, By Mouth, Daily at bedtime CONTINUOUS: (0) PRN: (13) Acetaminophen 325 mg Tablet (Acetaminophen Tablet) ??650 mg, By Mouth, Every 4 hours Dextromethorphan-Guaifenesin 20 mg-200 mg/10 mL Liqu UD (Robitussin DM Liquid) ??10 mL, By Mouth, Every 4 hours Dextrose Inj Syringe (Dextrose 50% Inj Syringe (25Gm)) ??12.5 Gm, IV Push Slowly, Every 20 minutes Dextrose Inj Syringe (Dextrose 50% Inj Syringe (25Gm)) ??25 Gm, IV Push Slowly, Every 15 minutes Glucagon 1 mg Inj (Glucagon Inj) ??1 mg, Intramuscular, Once Glucose 40% Gel (15 Gm) (Glucose Gel) ??15 Gm, By Mouth, Every 20 minutes Glucose 40% Gel (15 Gm) (Glucose Gel) ??30 Gm, By Mouth, Every 20 minutes Melatonin 3 mg Tablet (Melatonin Tablet) ??3 mg, By Mouth, Daily at bedtime NaCl 0.9% Flush 3ml (NaCL 0.9% Flush) ??3 mL, IV Push, Every 8 hours OxyCODONE 5 mg IR Tablet (oxyCODONE 5 mg oral tablet) ??5 mg, By Mouth, Every 4 hours Polyethylene Glycol 17 Gm Powder (MiraLax Powder) ??17 Gm 1 pack/packet, By Mouth, Daily Senna Tablet ??8.6 mg 1 tablet, By Mouth, 2 times a day Simethicone 80 mg Chewable Tablet (Simethicone Tablet) ??80 mg, Chew, 3 times a day Radiology (08/15/2023 15:[address] Lumbar Spine W/O Contrast) IMPRESSION:? No acute fracture or subluxation. Degenerative changes as described above. 2.5 cm left adrenal adenoma. Consider biochemical assays to determine functional status and excludepheochromocytoma. Recommend no further imaging evaluation. [1] Lab Results PM&R Labs WBC: 7.4 k/mm3 (08/14/23) Platelet Count: 193 k/mm3 (08/14/23) Sodium: 141 mmol/L (08/14/23) BUN: 17 mg/dL (08/14/23) Creatinine-Blood: 0.7 mg/dL (08/14/23) AST (SGOT):??41 units/L??High (08/14/23 12:33:00) ALT (SGPT): 29 units/L (08/14/23 12:33:00) [1]??CT Lumbar Spine W/O Contrast; Dian Coffman MD 08/15/2023 15:07 EDT * Wesley Donovan RN: PERFORM, MODIFY, MODIFY, MODIFY, SIGN, VERIFY Event Display: Consultation Note Authored Date: [id number] Patient: MARYCARMEN WINTER Age: 67 years Sex: Female : 1955 Associated Diagnoses: None Author: Wesley Donovan RN left pannus right pannus left breast right breast History of Presenting Problem groin Date of Service 08/18/2023 Reason for referral Wound: Description Location- Mons pubis and labia majora Etiology- Unknown etiology Measurements- Center: 2cm x 3cm Right Groin: 2cm x 3cm Wound Bed- full thickness skin loss with red viable tissue and yellow slough with crusted drainage Sommer Wound- desquamation Edges- well defined, desquamation Drainage- sanguinous Odor- none No fluctuance or induration Goals- Triad for enhanced autolytic debridement and moist wound healing . Wound: Description Location- Pannus Etiology- Moisture associated skin damage (MASD) with Fungal Dermatitis Wound Bed- hyperpigmented discoloration with satellite lesions and desquamation Sommer Wound- desquamation Edges- well defined Drainage- none Odor- none No fluctuance or induration Goals- miconazole for antifungal treatment . Wound: Description Location- Bilateral Breast Etiology- Moisture associated skin damage (MASD) Wound Bed- mirrored hyperpigmented discoloration with desquamation Sommer Wound- desquamation Edges- well defined Drainage- none Odor- none No fluctuance or induration Goals- moisture management . Wound RN consult entered to assess groin abdomen wounds and make topical recommendations. Patientpresented with lower back pain to bilateral LE and numbness of bilateral toes for 2 weeks. Patient was admitted for HTN, HLD, ROBERTA, depression, osteoarthritis and kidney stones. Upon entering the roompatient is lying in bed. Wound RN role explained and patient is agreeable to assessment as well as photodocumentation. Patient c/o of a lot of pain and unable to assist for visualization of wounds but wound RN able to lift pannus, and breast, which is described in detail above. Patient states she had this groin wounds for a while since she was admitted [facility]. Recommendations given to direct care RN and Relaborate message sent to (DOCTOR) as well. Recommendations: 1.) Mons pubis and labia majora: Cleanse with pH balanced cleanser. Pat dry. Apply thin layer of Triad to wound bed. Only pat and dab, no scrub and rub, when soiling occurs. Reapply thin layer PRN after incontinence care. 2.) Pannus: Cleanse with a pH balanced cleanser. Pat dry. Apply 2% Miconazole ointment twice a day. 3.) Bilateral breast: InterDry: -Lay a single layer of fabric in the skin fold, placing one edge into the base of the fold. -Gently smooth the rest of the fabric over the skin, keeping it flat. Leave at least 2 inches of the fabric exposed outside the skin fold. -Secure the fabric in one of several ways: with the skin fold, with a small amount of skin-friendlytape, or tucked under clothing. -Remove the fabric before bathing and reuse it when finished. When removing, gently separate the skin fold and lift away. -Do not use creams, ointments or powders with InterDry as it may interfere with product efficacy. -Each piece of InterDry may be used up to 5 days, depending on fabric soiling, odor, amount of moisture and general skin condition. Replace InterDry if it becomes soiled with blood, urine or stool. 4.) Continue use of specialty bed/low air loss mattress 5.) Turn and reposition every 2 hours and PRN 6.) Continue incontinence care as well as moisture management; do not utilize Mepilex foam dressingwith incontinence. 7.) Continue to offload bony prominences 8.) Float heels 9.) Continue to provide optimal nutritional support 10.) Provide Gaymar cushion to chair when patient OOB Plan Time spent 31-45 minutes Note * Dian Hurtado RN: PERFORM Event Display: Discharge/Transfer Note Hospital Authored Date: [id number] Nursing Discharge Note Entered On: 08/26/2023 14:28 EDT Performed On: 08/26/2023 14:28 EDT by Dian Hurtado RN Nursing Discharge Note 2 Discharge Time : 08/26/2023 15:34 EDT Dian Hurtado RN - 08/26/2023 16:20 EDT Discharge Level of Care at Discharge : half-way facility Discharge Nursing Homes/Rehab Facilities : [facility] Patient Left Unit Via : Ambulance Patient Accompanied Off Unit with : Ambulance/Chair Van Personnel Handover Given to Transport Personnel : Yes DC Instructions Provided & Signed by Pt : No Patient Understands D/C Instructions : Yes Patient Instructions Discharge Signed : No Did Pt have Specialty Bed or Wound Vac : No [address], Dian - 08/26/2023 14:28 EDT * Puma Mott DO: MODIFY, PERFORM Event Display: Discharge/Transfer Note Hospital Authored Date: [id number] Patient: ??MARYCARMEN WINTER ? Age:??67 Years?Sex:??Female?:??1955?? 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) Hyperlipidemia (E78.5) Hypertension (I10) Hypovitaminosis D (E55.9) Lumbar vertebral fracture (S32.009A) Subclinical hyperthyroidism (E05.90) Type II diabetes mellitus (E11.9) _ Discharge Medications Acetaminophen (acetaminophen 325 mg oral tablet)?975?Milligram?By Mouth?3 times a day Bisacodyl (bisacodyl 10 mg rectal suppository)?1?suppository(ies)?10?Milligram?Rectal ly?Daily?as needed?Constipation Diclofenac Topical (diclofenac 1% topical gel)?1?maria victoria?Topically?4 times a day Ergocalciferol (Vitamin D 09715 iu oral capsule)?50,000?unit(s)?By Mouth?Every week Escitalopram (escitalopram 5 mg oral tablet)?1?tab(s)?5?Milligram?By Mouth?Daily Gabapentin (gabapentin 100 mg oral capsule)?300?Milligram?By Mouth?3 times a day Lidocaine Topical (lidocaine 5% topical film)?Topically?Daily Nystatin Topical (nystatin topical 640772 u/gm powder)?1?maria victoria?Topically?2 times a day Oxycodone (oxyCODONE 5 mg oral tablet)?10?Milligram?By Mouth?Every 4 hours?as needed?Pain , Moderate Polyethylene Glycol 3350 (MiraLax Powder)?1?pack/packet?17?gram?By Mouth?Daily?as needed?Constipation Quetiapine (QUEtiapine 25 mg oral tablet)?50?Milligram?2?tablet?By Mouth?Daily Rosuvastatin (rosuvastatin 5 mg oral tablet)?5?Milligram?By Mouth?Daily Senna (senna 187 mg oral tablet)?1?tab(s)?8.6?Milligram?By Mouth?2 times a day?as needed?Constipation Tizanidine (tiZANidine 4 mg oral tablet)?2?Milligram?By Mouth?3 times a day?spasm Trazodone (traZODone 100 mg oral tablet)?100?Milligram?1?tablet?By Mouth?Daily atbedtime Medications Started Acetaminophen (acetaminophen 325 mg oral tablet)?975?Milligram?By Mouth?3 times a day Tizanidine (tiZANidine 4 mg oral tablet)?2?Milligram?By Mouth?3 times a day?spasm Senna (senna 187 mg oral tablet)?1?tab(s)?8.6?Milligram?By Mouth?2 times a day?as needed?Constipation Lidocaine Topical (lidocaine 5% topical film)?Topically?Daily Oxycodone (oxyCODONE 5 mg oral tablet)?10?Milligram?By Mouth?Every 4 hours?as needed?Pain , Moderate Polyethylene Glycol 3350 (MiraLax Powder)?1?pack/packet?17?gram?By Mouth?Daily?as needed?Constipation Gabapentin (gabapentin 100 mg oral capsule)?300?Milligram?By Mouth?3 times a day Ergocalciferol (Vitamin D 93888 iu oral capsule)?50,000?unit(s)?By Mouth?Every week Bisacodyl (bisacodyl 10 mg rectal suppository)?1?suppository(ies)?10?Milligram?Rectal ly?Daily?as needed?Constipation Nystatin Topical (nystatin topical 668473 u/gm powder)?1?maria victoria?Topically?2 times a day ?? Medications Discontinued losartan tramadol Allergies Allergies ?(Active and Proposed Allergies Only) sulfADIAZINE? (Severity: Unknown severity, Onset: Unknown) ?Reactions: Unknown ? PCP Follow-Up/Heads-Up Patient noted to have AVN and lumbar fracture on imaging. She is discharged to rehab. Please work on pain. FU dexa scan outpatient FU on adrenal adenoma and labs FU on thyroid labs Future Appointments Friday 11:30 AM EDT ?? Where: [address] [place] [address]- Status: Pending Hospital Course 67-year-old female with past medical history including??hypertension, hyperlipidemia, obstructive sleep apnea,??depression,??osteoarthritis,??and history of kidney stones,??presented to the hospital??with complaint of??lower back pain??radiating to the bilateral legs,??left worse than right, with nu mbness??of her??bilateral toes??over the past 2-1/2 weeks.?? She underwent CT lumbar and MRI lumbarwhich revealed concerns for degenerative disc disease, foraminal and spinal stenosis, as well as acute/subacute fracture. Neurosurgery was consulted during stay and did not recommend surgical intervention at the time. Hip xrays were also performed revealing avascular necrosis of the hips. PM&R and PT evaluated patient, she was also given a back brace, and discharged to rehab. ?? Acute low back pain Degenerative disc disease Mild to moderate??spinal canal and??foraminal stenosis Likely L5 acute/subacute fracture Avascular necrosis of the bilateral hips Multifactorial low back and BLE pain Started 1.5 weeks ago, no inciting trauma or heavy lifting prior. Currently without incontinence or loss of sensation in the LE. PMR with concern for AVN of the??hip, question of AVN was mentioned on MRI in 2019. MRI and CT lumbar done in hospital, see report X-ray of the hips shows flattening of the bilateral femoral heads likely representing avascular necrosis with subchondral bone collapse. Neuro-radiologist stated there was no need for repeat MRI.??Found L5??finding??is most consistent with an acute/subacute fracture in the setting of trauma with an intradiscal hematoma and prevertebral edema.?? LSO brace just for comfort. Pt can walk without brace as per PMR. Neurosurgery consulted - No acute neurosurgical intervention. Discontinued calcitonin spray??daily as patient did not tolerate. ?? Recommendations - Cont pain management as below - PT recommends rehab, pt agreeable. - F/u outpt for osteoporosis workup, dexa scan. - FU on avn of hips ?? Pain Management - Continue Oxycodone to??10 mg q 4 hrs prn mod-severe pain. - Scheduled Tylenol 975 mg tid - Continue Lidocaine patch. - Continue Tizanidine??4 mg TID, hold SBP < 90 or HR < 60 - Cont gabapentin 300 mg TID, increase if needed - PMR??LSO brace for comfort. ?? Hypovitaminosis D Concern for osteoporosis Patient's vitamin D level of 10.8??(normal range is 20 through 50) ?? Recommendations ???Continue vitamin D??supplementation with 50,000 units??weekly for 8 weeks ??? Follow-up with PCP and dexa scan outpatient ?? Left??adrenal adenoma Patient with??BP??ranging from the 120s to the 150s. Previously noted adrenal adenoma??in??2019??at 2.1 cm, current CT scan shows the??adrenal adenoma at 2.5 cm. DHEA-S was WNL. ?? Recommendations ?F/u with fractionated plasma metanephrines,??and??plasma aldosterone to renin ratio. ??? Follow-up with PCP ?? Subclinical hyperthyroidism TSH undetectable, free T4 and free T3 within normal limits Pt without overt hyperthyroid symptoms ?? Recommendations - Follow-up outpatient with PCP. - Consider outpt thyroid ultrasound. ?? Hypotension due to hypovolemia - resolved Hold Losartan, s/p??500cc bolus Will monitor fluid status BP improved, currently more normotensive? Recommendations -Continue losartan as able consider lower dose. ?? Chronic medical issues Anxiety/depression- continue escitalopram 5 mg, trazodone 100 mg at bedtime, quetiapine 50 mg at bedtime. Hypertension- Discontinued losartan 100mg. Restart as appropriate outpatient Hyperlipidemia - Rosuvastatin 5mg Type II diabetes - Does not appear to be on medications per refill history. A1c of 5.2. FU outpatient Objective Measurements?? Height: 163 cm (08/24/23) Weight: 112.7 kg (08/15/23) Dry Weight: 112.7 kg (08/15/23) Body Mass Index:??42.42 kg/m2??Critical (08/15/23) ? Vital Signs?? Temperature: 97.9 DegF (08/26/23 11:00:00) Temperature Route: Oral (08/26/23 11:00:00) Pulse Rate: 69 bpm (08/26/23 11:00:00) Respiratory Rate: 16 br/min (08/26/23 11:00:00) Respiratory Rate: 16 br/min (08/26/23 11:00:00) Respiratory Rate: 16 br/min (08/26/23 11:00:00) Respiratory Rate: 18 br/min (08/26/23 11:00:00) Systolic Blood Pressure:??153 mm Hg??High (08/26/23 11:00:00) Diastolic Blood Pressure: 63 mm Hg (08/26/23 11:00:00) Blood pressure sites: Arm, left (08/26/23 11:00:00) Oxygen Saturation:??93 %??Low (08/26/23 11:00:00) Mode of Delivery (Oxygen): Room air (08/26/23 11:00:00) Early Warning Score: 4 (08/26/23 11:49:00) ? . Physical Exam General: No acute distress HEENT: EOMI, mucous membranes moist CV: RRR S1 S2 present. No murmurs, gallops, rubs appreciated. No JVD. No edema. Respiratory: All ray clear to auscultation bilaterally. No wheezes, rales, rhonchi appreciated Abdominal: Soft, nontender. No rebound tenderness. Bowel sounds noted all four quadrants. : No suprapubic tenderness. Neuro: A&OX3. Moving upper. No gross neurological deficits. Bilateral lower extremity sensations intact. No focal tenderness. ROM lower extremity limited to pain. Psych: Affect appropriate Skin: No acute lesions, wounds, rashes. Consultants PMR Neurosurgery Pending Results Aldosterone/Renin Ratio ordered on 08/19/2023 Patient Education Titles Oxycodone Oral Tablet 5 mg?? Understanding Opioid Medicines for Pain Management?? Gabapentin Oral Capsule?? Understanding Osteonecrosis?? Lumbar Degenerative Disk Disease?? General Neck and Back Pain?? Follow-Up Appointments Added Follow Up ?Time Frame ?Comments Roxanna Bingham MD?1 week Patient Instructions You were admitted for concerns of back pain. An MRI of the lumbar was obtained concerning for lumbar fracture and hip xrays were concerning for avascular necrosis of the hip. Neurosurgery was consulted and did not recommend surgical intervention at the time. ?? Please follow up with your PCP to discuss outpatient management of your diagnosis and back pain. You are recommended to go to rehab for better management of your symptoms. You are being started on new medications for pain control. Pain Management - Oxycodone to??10 mg every 4 hrs as needed for mod-severe pain. - Scheduled Tylenol 975 mg three times a day - Lidocaine patch, remove and replace every 12 hours - Tizanidine??4 mg three times a day, hold for systolic blood pressure of?? < 90 or Heart??rate < 60 - gabapentin 300 mg three times a day - LSO brace for comfort ?? Follow up with your PCP to discuss lab workup including your thyroid and adrenal labs. Discuss with your PCP regarding outpatient DEXA bone scan. Continue taking Ergocalciferol (Vitamin D 26366 iu oral capsule)?50,000?unit(s)?By Mouth?once Every week. ?? If symptoms worsen or new symptoms develop, please seek medical attention. If you do not have a PCP, please call the [facility] PCP hotline [phone]. ?? Results Discharge Labs BLOOD COUNT & DIFF WBC 5.3 k/mm3 ()?? 08/26/2023 01:51 RBC 4.05 m/mm3 (Low)?? 08/26/2023 01:51 Hgb 13.0 Gm/dL ()?? 08/26/2023 01:51 Hct 39.9 % ()?? 08/26/2023 01:51 MCV 98.5 femtoliters ()?? 08/26/2023 01:51 MCH 32.1 pg ()?? 08/26/2023 01:51 MCHC 32.6 g/dL (Low)?? 08/26/2023 01:51 Platelet Count 156 k/mm3 ()?? 08/26/2023 01:51 RDW-SD 44.7 femtoliters ()?? 08/26/2023 01:51 MPV 10.4 femtoliters ()?? 08/26/2023 01:51 Nucleated RBC (Automated) 0.0 #/100 WBC'S ()?? 08/26/2023 01:51 Abs. NRBC 0.0 k/mm3 ()?? 08/26/2023 01:51 Abs. Neut 1.8 k/mm3 ()?? 08/23/2023 04:40 Abs. Lymph 1.7 k/mm3 ()?? 08/23/2023 04:40 Abs. Centre 0.4 k/mm3 ()?? 08/23/2023 04:40 Abs. Eo 0.2 k/mm3 ()?? 08/23/2023 04:40 Abs. Baso 0.0 k/mm3 ()?? 08/23/2023 04:40 Neut % 43.1 % (Low)?? 08/23/2023 04:40 Lymph % 41.8 % ()?? 08/23/2023 04:40 Centre % 8.9 % ()?? 08/23/2023 04:40 Eos % 5.5 % ()?? 08/23/2023 04:40 Baso % 0.5 % ()?? 08/23/2023 04:40 Imm Gran 0.2 % ()?? 08/23/2023 04:40 Abs. Imm Gran 0.0 k/mm3 ()?? 08/23/2023 04:40 ?? CARDIAC High Sensitivity Troponin (HSTnT) 8 ng/L ()?? 08/15/2023 05:05 ? CHEM GENERAL Sodium 139 mmol/L ()?? 08/26/2023 01:51 Potassium 4.4 mmol/L ()?? 08/26/2023 01:51 Chloride 104 mmol/L ()?? 08/26/2023 01:51 Bicarbonate Level 26 mmol/L ()?? 08/26/2023 01:51 Anion Gap 9 ()?? 08/26/2023 01:51 Glucose Level 101 mg/dL (High)?? 08/26/2023 01:51 Glucose, POC 74 mg/dL ()?? 08/22/2023 16:52 Hemoglobin A1C (Monitoring) 5.6 % ()?? 08/19/2023 04:59 BUN 12 mg/dL ()?? 08/26/2023 01:51 Creatinine-Blood 0.5 mg/dL ()?? 08/26/2023 01:51 Estimated GFR Creatinine 101 ML/MIN/1.73 M2 ()?? 08/26/2023 01:51 Calcium 9.2 mg/dL ()?? 08/26/2023 01:51 Protein, Total 6.4 Gm/dL ()?? 08/14/2023 12:33 Albumin 3.9 Gm/dL ()?? 08/14/2023 12:33 AG Ratio 1.6 ()?? 08/14/2023 12:33 Alkaline Phosphatase 95 units/L ()?? 08/14/2023 12:33 AST (SGOT) 41 units/L (High)?? 08/14/2023 12:33 ALT (SGPT) 29 units/L ()?? 08/14/2023 12:33 Bilirubin, Total 0.4 mg/dL ()?? 08/14/2023 12:33 C-Reactive Protein 3.4 mg/dL (High)?? 08/19/2023 04:59 ?? ENDOCRINE/TUMOR MARKER TSH <0.01 uIU/mL (Low)?? 08/18/2023 02:00 Free T4 1.41 ng/dL ()?? 08/18/2023 02:00 T3, Free 4.5 pg/mL ()?? 08/18/2023 02:00 DHEA Sulfate 35.5 ??g/dL ()?? 08/19/2023 04:59 Plasma Metanephrines 10.5 ()?? 08/19/2023 04:59 Plasma Normetanephrines 69.3 ()?? 08/19/2023 04:59 ?? HEME OTHER Sed Rate 26 mm/hr (High)?? 08/19/2023 04:59 Hold Lavender Top SPECIMEN DISCARDED AFTER 24 HOURS. ()?? 08/21/2023 06:53 ?? MISC. CHEMISTRY 25 [place]-Vitamin D Level 10.8 ng/mL (Low)?? 08/21/2023 06:56 ? UA/URINALYSIS Appear/Color, Urine YELLOW ()?? 08/15/2023 11:00 Specific [place], Urine 1.032 (High)?? 08/15/2023 11:00 pH, Urine 6.0 ()?? 08/15/2023 11:00 Albumin, Urine TRACE (Abnormal)?? 08/15/2023 11:00 Glucose, Urine NEGATIVE ()?? 08/15/2023 11:00 Ketones, Urine 1+ (Abnormal)?? 08/15/2023 11:00 Bilirubin, Urine NEGATIVE ()?? 08/15/2023 11:00 Hemoglobin, Urine 1+ (Abnormal)?? 08/15/2023 11:00 Nitrite, Urine NEGATIVE ()?? 08/15/2023 11:00 Leukocyte, Urine TRACE (Abnormal)?? 08/15/2023 11:00 Urobilinogen NORMAL mg/dL ()?? 08/15/2023 11:00 WBC's, Urine 3 /HPF ()?? 08/15/2023 11:00 RBC's, Urine 6 /HPF (High)?? 08/15/2023 11:00 Bacteria SLIGHT HPF (Abnormal)?? 08/15/2023 11:00 Squamous Epith 4 /HPF ()?? 08/15/2023 11:00 Mucus SLIGHT /LPF ()?? 08/15/2023 11:00 Hold Urine Culture Testing available 48 hours from time of collection. ()?? 08/15/2023 11:00 ? URINE OTHER Est Creatinine Clearance 92.37 mL/min ()?? 08/21/2023 07:49 ? Imaging(s) ?CT Lumbar Spine W/O Contrast ?? 08/15/2023 15:07??by Meghna ROCKWELL, Dian N ?CT Lumbar Spine W/O Contrast ?? Hx of Present Illness: reports lower back pain with radiation to BLE x2wks after having a bowel movement, sts pain is worse to her LLE with numbness to feet and 1-3rd fingers on R hand. reports some brief chest pressure earlier today but denies at present.; Reason: Other:; Spine fracture, lumbar, traumatic; Clinical Question(s): Fracture Dislocation; Order Comment: ?? CLINICAL QUESTION: Fracture/Dislocation ?? TECHNIQUE: Thin section axial images were acquired through the lumbar spine. Bone and soft tissue algorithms were reconstructed along with coronal and sagittal reformats. Weight-based protocol using automatic tube modulation was used to optimize exposure parameters. ? CTDIvol Body: 67.40 mGy, DLP Body: 2072 mGy*cm. ? COMPARISON: None ?? FINDINGS: ?? Supervisor [place] Findings, Lines and Tubes: None. ?? Spine: No fractures or bone lesion. ?? There is minimal retrolisthesis of L1 on L2 and L2 on L3 as well as subtle anterolisthesis of L4 onL5. Alignment is otherwise maintained. There is multilevel facet arthropathy which is most advancedat the L4-L5 and L5-S1 levels. ?? Soft tissues: No acute abnormality in the paravertebral soft tissues. There is a 2.5 cm left adrenal nodule with low density compatible with an adrenal adenoma. There are scattered atherosclerotic vascular calcifications. There are nonobstructing punctate bilateral renal calculi, right more numerous than left. ?? DETAILED FINDINGS BY LEVEL: ?? L1-L2: Disc bulge asymmetric towards the right. Facet spurring. Mild spinal canal narrowing. Mild to moderate bilateral neural foraminal narrowing. ?? L2-L3: Diffuse disc bulge, ligamentum flavum thickening, and facet spurring resulting in at least moderate canal stenosis, mild to moderate bilateral neural foraminal narrowing. ?? L3-L4: Diffuse disc bulge with ligamentum flavum thickening and facet arthropathy resulting in at least moderate canal stenosis and in mild to moderate right neural foraminal narrowing. Mild to moderate bilateral neural foraminal narrowing. ?? L4-L5: Diffuse disc bulge with ligamentum flavum thickening and advanced facet arthropathy with moderate to severe canal stenosis, narrowing of the subarticular zones possibly crowding the traversingL5 nerve roots bilaterally, and mild to moderate bilateral neural foraminal narrowing. ?? L5-S1: Diffuse disc bulge and facet arthropathy. There is severe left neural foraminal narrowing due to endplate osteophytes and disc bulge. Mild right neural foraminal narrowing. No significant canal stenosis. ?? IMPRESSION: ?? No acute fracture or subluxation. Degenerative changes as described above. 2.5 cm left adrenal adenoma. Consider biochemical assays to determine functional status and excludepheochromocytoma. Recommend no further imaging evaluation. ?MRI Lumbar Spine W/O Contrast ?? 08/18/2023 20:30??by Kera Gustafson MD ?DDENDUM: MRI Lumbar Spine W/O Contrast Please note that as described on this examination, there are T2 and STIR hypointense lines along the inferior margin of the L5 vertebral body most consistent with fracture lines. Retrospectively, this could also be seen on prior CT of 08/15/2023. Therefore, this is most consistent with an acute/suba cute fracture in the setting of trauma with an intradiscal hematoma and prevertebral edema. WSN: [id number] ? Ordering Physician: Say Moctezuma ?? Signature Line Dictated By: Kera Gustafson MD Dictated Date/Time: 08/20/23 2:04 pm Reviewed By: Kera Gustafson MD Signed By: Kera Gustafson MD Signed Date/Time: 08/20/23 2:04 pm Transcribed By: CLARIBEL Transcribed Date/Time: 08/20/23 2:01 pm ?? RESULT: MRI Lumbar Spine W/O Contrast MRI Lumbar Spine W/O Contrast ?? INDICATION: Reason: Back Pain; Clinical Question(s): Spinal Stenosis; Order Comment: Please see Reference Text for complete list of contraindications Spinal Stenosis ?? TECHNIQUE: MRI of the lumbar spine was performed without intravenous contrast utilizing sagittal T1, sagittal T2, sagittal STIR, axial T1, and axial T2- weighted sequences. ?? COMPARISON: Lumbar radiographs of 11/19/2010, 09/28/2018, CT of 08/15/2023. ?? FINDINGS: ?? LOCALIZER: Additional entire spine T2 localizers were also obtain obtained. ?? Sagittal T2-weighted localizer images include the cervical, thoracic, and lumbar spine. No axial images were obtained through the cervical or thoracic spine but the sagittal images do provide a limited survey examination. No abnormality of the cervical cord or significant canal stenosis is appreciated. No significant vertebral body abnormality is present. Multilevel disc bulges are present predominantly in the mid and lower cervical spine. The thoracic spine alignment is preserved. There is minimal loss of height of the T8, T9, and T7 vertebral bodies likely chronic in nature with Modic type I/II endplate marrow changes. There are endplate marrow changes throughout the thoracic spine. Thereare mild disc bulges at several levels. No significant central stenosis is present. No mass is identified. There is no evidence of discitis or osteomyelitis in the cervical or thoracic spine. ?? NUMBERING: The study assumes 5 [id number] lumbar type vertebral bodies. ?? ALIGNMENT, VERTEBRAE, MARROW, AND DISCS: There is minimal retrolisthesis of L1 on L2 and minimal anterolisthesis of L4 on L5 and L5 on S1. There is loss of height of the L5 vertebral body, new since prior examination of 2018 with extensive bone marrow edema and subtle T2 hyperintensity along the inferior cortex. There is a subtle T2 and STIR hypointense line along the inferior margin. There is widening of the L5-S1 disc with abnormal central STIR signal. There is mild prevertebral edema at L4-L5 extending into the sacrum with minimal presacral edema. There are Modic type I/II endplate marrow changes at L1-L2. There is mild increased signal within the disc. There is no prevertebral edema at this level. The bone marrow signal is otherwise preserved at the other levels. The remaining lumbar discs are preserved. ?? CONUS: The conus is normal in signal and contour, with normal level of termination at L1-L2. ?? PARASPINAL TISSUES: There is a 2.5 cm left adrenal mass consistent with an adrenal adenoma as per recent CT of 08/15/2023. As described above, there is prevertebral and presacral edema from L4-L5 through the visualized sacrum. The paraspinal and visualized retroperitoneal soft tissues are otherwise unremarkable. ?? DETAILED FINDINGS BY LEVEL: ?? T12-L1: No significant canal stenosis or neural foraminal narrowing. The disc is preserved. ?? L1-L2: There is a mild to moderate diffuse disc bulge with mild canal stenosis with crowding of thetraversing nerve roots. There are posterior endplate spurs and facet joint arthropathy as well as disc bulge resulting in moderate bilateral foraminal stenosis. ?? L2-L3: There is a mild to moderate diffuse disc bulge, ligamentum flavum thickening, facet joint arthropathy, and posterior endplate spurs resulting in mild bilateral foraminal stenosis. There is moderate canal stenosis in conjunction with prominent epidural fat with crowding of the traversing nerve roots. ?? L3-L4: There is a moderate diffuse disc bulge, ligamentum flavum thickening, facet joint arthropathy, and posterior endplate spurs resulting in moderate canal stenosis with crowding of the traversingnerve roots. There is mild left and moderate right foraminal stenosis. ?? L4-L5: There is a mild diffuse disc bulge, facet joint arthropathy, and posterior endplate spurs resulting in mild bilateral foraminal stenosis, worse on the left. There is moderate to severe canal stenosis with crowding/compression of the traversing nerve roots and compromise of the bilateral L5 traversing nerve roots. ?? L5-S1: There is widening of the disc when compared to prior examinations with a focus of T2 hyperintensity within the disc which could represent a hematoma in the setting of a mild acute compression fracture. However, given the poor visualization of the fracture line in the T1 sequence and the extensive bone marrow edema, underlying discitis osteomyelitis cannot be entirely excluded at this time.Correlation with patient's laboratory data, history, and short-term follow-up is recommended. Thereis facet joint arthropathy, ligamentum flavum thickening, and posterior endplate spurs as well is aminimal diffuse disc bulge resulting in mild to moderate bilateral foraminal stenosis with the bilateral L5 exiting nerve roots contacting the bulging disc and posterior endplate spurs within the foramina. There is no canal stenosis. ? IMPRESSION: ?? Mild loss of height of the L5 vertebra with extensive bone marrow edema and abnormal signal within the intervening disc which appears expanded. This could represent an acute/subacute fracture with anadjacent intradiscal hematoma. Mild prevertebral and presacral edema probably reactive. However, a superimposed infection cannot be entirely excluded. Correlation with patient's laboratory data, clinical history, short-term follow-up is recommended. ?? Degenerative changes at L2-L3 endplates as described. ?? Multilevel degenerative changes of the lumbar spine with moderate to severe canal stenosis from L2 through L5 as described level by level. ?? Other findings as described. ?Chest Single Frontal View ?? 08/15/2023 12:47??by Dian Coffman MD ?Chest Single Frontal View ?? Hx of Present Illness: reports lower back pain with radiation to BLE x2wks after having a bowel movement, sts pain is worse to her LLE with numbness to feet and 1-3rd fingers on R hand. reports some brief chest pressure earlier today but denies at present.; Reason: Other:; pain; Clinical Question(s): Pneumonia ?? COMPARISON: Chest radiograph 09/28/2018 ?? FINDINGS: Somewhat suboptimal exam due to patient habitus and exam technique. ?? LINES AND TUBES: None. ?? LUNGS AND PLEURA: Clear lungs. Normal pulmonary vascularity. No pleural effusion. No pneumothorax. ?? HEART, MEDIASTINUM AND PAULO: Heart is at the upper limits of normal for size accounting for exam technique and AP projection. Normal mediastinal and hilar contour. ?? BONES AND SOFT TISSUES: No acute abnormality. ?? IMPRESSION: ?? No acute abnormality. ?XR Hip Comp 2 Views Left ?? 08/19/2023 06:45??by Qi ROCKWELL, Rashaad V ?Hip Comp 2 Views Right, Hip Comp 2 Views Left ?? Reason: Pain; Clinical Question(s): avascular necrosis ?? COMPARISON: Plain films 09/28/2018. ?? FINDINGS: ?? No fracture or dislocation. ?? Flattening of the bilateral femoral heads with associated subchondral sclerosis. ? IMPRESSION: ?? Sclerosis and flattening of bilateral femoral heads, most likely representing avascular necrosis with subchondral bone collapse. ?XR Hip Comp 2 Views Right ?? 08/19/2023 06:45??by Qi ROCKWELL, Rashaad V ?Hip Comp 2 Views Right, Hip Comp 2 Views Left ?? Reason: Pain; Clinical Question(s): avascular necrosis ?? COMPARISON: Plain films 09/28/2018. ?? FINDINGS: ?? No fracture or dislocation. ?? Flattening of the bilateral femoral heads with associated subchondral sclerosis. ? IMPRESSION: ?? Sclerosis and flattening of bilateral femoral heads, most likely representing avascular necrosis with subchondral bone collapse. ? 30??minutes spent on discharge ?? Patient seen and discussed with attending physician, Dr. Karla Mott DO, PGY-3 * Annie Buchanan RN: VERIFY, PERFORM, SIGN Event Display: Case Management Discharge Plan Authored Date: Patient: MARYCARMEN WINTER Age: 67 years Sex: Female : 1955 Associated Diagnoses: None Author: Annie Buchanan RN Discharge Plan Case Management Discharge Plan : Case Management Discharge Plan Data 08/26/2023 12:00 EDT Discharge Level of Care at Discharge half-way facility Discharge Nursing Homes/Rehab Facilities [facility] Discharge Transportation Arranged [facility] [address] [place] [address] Discharge Arranged Transport Date/Time 08/26/2023 15:00 Mode of Transportation Arranged Ambulance * Dian Hurtado RN: PERFORM Event Display: Patient Education/Instruction Authored Date: Inpatient Adult Discharge Instructions [address] [address] Name: MARYCARMEN WINTER : 1955 Visit: 08/15/2023 18:31:00 Current Date: 08/26/2023 14:30 Account: [id number] Inpatient Adult Discharge Instructions We would like to thank you for allowing us to assist you with your healthcare needs. The following includes patient education materials and information regarding your injury/illness. Our entire staffstrives to provide an excellent experience for our patients and their families. PLEASE ENSURE YOU FOLLOW-UP PER THE INSTRUCTIONS BELOW! ?? YOUR OPINION IS IMPORTANT TO US! Please complete the survey you may receive by mail or email. Your feedback will be used to make improvements to the healthcare experiences of our patients and their families. Surveys are administered by [employer] ?? If further treatment with your primary care physician or another doctor is recommended, it is important for you to keep the appointment. Call your primary care physician or return to the Emergency Department immediately if your condition worsens, fails to improve, or new symptoms develop. If you need to find a doctor, you can call [facility] [employer] [facility] for a referral at [phone] or toll free at [phone] ([phone]) or log in to [email or web address] ?? [facility], in keeping with [facility] guidance, no longer requires face masks for staff, patientsor visitors in most situations. Similiar to time spent indoors at other locations, there is the chance that you were exposed to repiratory viruses during your time with us (such as flu or COVID-19). If you develop symptoms concerning for a viral respiratory infection, please seek testing (and treatment if indicated) from your medical provider or home test kit. ?? You can view and manage your care through the patient portal or by using a health care [facility]ia [facility] of your choosing. [employer] is a website that allows you to securely view your medical information including your hospital discharge summary, office visit summaries, medications and follow-up visits. You can also request appointments, renew medications, and request access to your medical information using a health care [facility] of your choosing, or just ask a question. You can enroll at [email or web address] or register during your next office visit. You have been discharged from [facility], Patient Care Unit: D5A. If you have any questions regarding these instructions after you leave, please call us and we will be happy to assist you. [facility] Your Care Team Attending Physician Karla ROCKWELL, Johnson Consulting Providers Tony ROCKWELL, Eduardo Bonilla Discharging Providers Puma Mott DO Reason for Admission bilat leg pain weakness, tx at [facility] and left ama as she refused rehab. Your Diagnosis Acute low back pain Adrenal adenoma Subclinical hyperthyroidism Anxiety Depression Hypertension Hyperlipidemia Type II diabetes mellitus Hypovitaminosis D Avascular necrosis of hip Degenerative disc disease, lumbar Lumbar vertebral fracture Foraminal stenosis of lumbar region Central stenosis of spinal canal Tests Performed Below is a partial list of the tests performed during your hospitalization. You may have had other tests and procedures not included in this list. Please discuss all test results with your provider. Basic Metabolic Panel BUN C-REACTIVE PROTEIN CBC CBC w/ Differential Comprehensive Metabolic Panel Creatinine DHEA Sulfate Electrolytes FREE T3 FREE T4 GLUCOSE POC HEMOGLOBIN A1C High??Sensitivity??Troponin T HOLD LAVENDER TUBE Metanephrines Fract Plasma SEDIMENTATION RATE,AUTOMATED Troponin T, High Sensitivity TSH with T4 Reflex (Adults Only) Urinalysis w/hold for Urine Culture Vitamin D [address] Lumbar Spine W/O Contrast MRI Lumbar Spine W/O Contrast XR Chest Single Frontal View XR Hip Comp 2 Views Left XR Hip Comp 2 Views Right Primary Care Provider Roxanna Bingham MD Advance Directive Health Care Proxy on File Yes - Health Care Proxy Discharge Vitals Temperature: 97.9 DegF Height: 163 cm Pulse Rate: 69 bpm Weight: 112.7 kg Respiratory Rate: 16 br/min Body Mass Index:??42.42 kg/m2??Critical Respiratory Rate: 16 br/min Body surface area: 2.26 Respiratory Rate: 16 br/min ?? Respiratory Rate: 18 br/min ?? Systolic Blood Pressure:??153 mm Hg??High ?? Diastolic Blood Pressure: 63 mm Hg ?? Oxygen Saturation:??93 %??Low ?? Studies Pending All tests and labs ordered during this hospital stay have been completed unless listed below. Please discuss all pending results with your provider listed above in these instructions. ?? Aldosterone/Renin Ratio What to do next Instructions From Your Doctor You were admitted for concerns of back pain. An MRI of the lumbar was obtained concerning for lumbar fracture and hip xrays were concerning for avascular necrosis of the hip. Neurosurgery was consulted and did not recommend surgical intervention at the time. ?? Please follow up with your PCP to discuss outpatient management of your diagnosis and back/hip pains. You are recommended to go to rehab for better management of your symptoms. You are being started on new medications for pain control. Pain Management - Oxycodone to??10 mg every 4 hrs as needed for mod-severe pain. - Scheduled Tylenol 975 mg three times a day - Lidocaine patch, remove and replace every 12 hours - Tizanidine??4 mg three times a day, hold for systolic blood pressure of?? < 90 or Heart??rate < 60 - gabapentin 300 mg three times a day - LSO brace for comfort ?? Follow up with your PCP to discuss lab workup including your thyroid and adrenal labs. Discuss with your PCP regarding outpatient DEXA bone scan. Continue taking Ergocalciferol (Vitamin D 93671 iu oral capsule)?50,000?unit(s)?By Mouth?once Every week. ?? If symptoms worsen or new symptoms develop, please seek medical attention. If you do not have a PCP, please call the [facility] PCP hotline [phone]. ?? Discharge Orders Scheduled Follow-Up Appointments Friday 11:30 AM EDT ?? Where: [address] [place] [address]- Status: Pending You Need to Schedule the Following Appointments Follow Up with??Roxanna Bingham MD When:??Within 1 week Why: IPF Where: [address] [place] [address] [address] [place] [address]- Discharge Medications MARYCARMEN WINTER :1955 Visit Date:08/15/2023 Medications: Please continue your medications until treatment is completed or stopped by your provider. Medications not listed below should be discontinued. Discuss any questions related to medications with your provider. What How Much When Instructions Next Dose New Acetaminophen (acetaminophen 325 mg oral tablet) 975 Milligram Oral 3 times a day 01/24 New Bisacodyl (bisacodyl 10 mg rectal suppository) 1 suppository(ies) Per rectum Daily as needed for Constipation as needed New Ergocalciferol (Vitamin D 49681 iu oral capsule) 50,000 unit(s) Oral Every week see instruction New Gabapentin (gabapentin 100 mg oral capsule) 300 Milligram Oral 3 times a day 08/26 New Lidocaine Topical (lidocaine 5% topical film) Topically Daily 9am 08/27 New Nystatin Topical (nystatin topical 703272 u/ gm powder) 1 maria victoria Topically Twice a day Pickup at [facility] #[id number] 08/26 New Oxycodone (oxyCODONE 5 mg oral tablet) 10 Milligram Oral Every 4 hours as needed for Pain , Moderate Duration: 3 Days Printed Prescription as needed New Polyethylene Glycol 3350 (MiraLax Powder) 17 gram Oral Daily as needed for Constipation as needed New Remove Patch New Senna (senna 187 mg oral tablet) 1 tab(s) Oral Twice a day as needed for Constipation as needed New Tizanidine (tiZANidine 4 mg oral tablet) 2 Milligram Oral 3 times a day spasm ?? 08/26 Changed Diclofenac Topical (diclofenac 1% topical gel) 1 maria victoria Topically 4 times a day 08/26 Changed Escitalopram (escitalopram 5 mg oral tablet) 1 tab(s) Oral Daily 08/27 Changed Quetiapine (QUEtiapine 25 mg oral tablet) 2 tab(s) Oral Daily 08/27 Changed Rosuvastatin (rosuvastatin 5 mg oral tablet) 5 Milligram Oral Daily 08/27 Changed Trazodone (traZODone 100 mg oral tablet) 1 tab(s) Oral Daily at Bedtime 08/26 Pharmacy Information [facility] #[id number]: [address], [place] [id number] [phone] ?? What How Much When Comments Stop Taking Albuterol (Albuterol (Eqv-Proventil HFA) 90 mcg/ inh inhalation aerosol) Stop Taking Fluconazole (fluconazole 150 mg oral tablet) 1 tab(s) Oral Once Stop Taking Losartan (losartan 100 mg oral tablet) TAKE 1 TABLET BY MOUTH EVERY DAY ?? Stop Taking Losartan (losartan 50 mg oral tablet) 1 tab(s) Oral Daily Stop Taking Metformin (metFORMIN 500 mg oral tablet) 1 tab(s) Oral Twice a day Stop Taking mirabegron (Myrbetriq) Oral Daily Stop Taking Nicotine (Nicotine 7 mg/ 24 hour patch) 1 patch(es) Daily Stop Taking Olmesartan (olmesartan 40 mg oral tablet) 1 tab(s) Oral Daily Stop Taking PEG Electrolyte Solution (MiraLax) 17 gram Oral Daily Stop Taking semaglutide (Ozempic 2 mg/ 3 mL (0.25 mg or 0.5 mg dose) subcutaneous solution) Stop Taking Silver SulfADIAZINE Topical (Silvadene 1% cream) 1 maria victoria Topically Daily Stop Taking Simvastatin Oral Daily at Bedtime Stop Taking Tramadol (traMADol 50 mg oral tablet) 1 tab(s) Oral Every 12 hours as needed for as needed for pain Stop Taking Tramadol (traMADol 50 mg oral tablet) TAKE 1 TABLET BY MOUTH TWICE DAILY NEEDED ?? Stop Taking Tramadol (Ultram ER 200 mg oral tablet, extended release) 1 tab(s) Oral Daily Test Results Below is a partial list of the most recent Laboratory test results done prior to this discharge. You may have had other tests and procedures not included in this list. Please discuss all test resultswith your provider. Est Creatinine Clearance - 92.37 mL/min (08/21/2023) Basic Metabolic Panel (08/26/2023) ???Sodium - 139 mmol/L???Potassium - 4.4 mmol/L???Chloride - 104 mmol/L???Bicarbonate Level - 26 mmol/L???Anion Gap - 9???Glucose Level - 101 mg/dL???BUN - 12 mg/dL???Creatinine-Blood - 0.5 mg/dL???Estimated GFR Creatinine - 101 ML/MIN/1.73 M2???Calcium - 9.2 mg/dL BUN (08/23/2023) ???BUN - 12 mg/dL C-REACTIVE PROTEIN (08/19/2023) ???C-Reactive Protein - 3.4 mg/dL CBC (08/26/2023) ???WBC - 5.3 k/mm3???RBC - 4.05 m/mm3???Hgb - 13.0 Gm/dL???Hct - 39.9 %???MCV - 98.5 femtoliters???MCH - 32.1 pg???MCHC - 32.6 g/dL???Platelet Count - 156 k/mm3???RDW-SD - 44.7 femtoliters???MPV - 10.4 femtoliters???Nucleated RBC (Automated) - 0.0 #/100 WBC'S???Abs. NRBC - 0.0 k/mm3 CBC w/ Differential (08/23/2023) ???WBC - 4.2 k/mm3???RBC - 4.04 m/mm3???Hgb - 13.2 Gm/dL???Hct - 39.6 %???MCV - 98.0 femtoliters???MCH - 32.7 pg???MCHC - 33.3 g/dL???Platelet Count - 138 k/mm3???RDW-SD - 44.3 femtoliters???MPV - 10.4 femtoliters???Nucleated RBC (Automated) - 0.0 #/100 WBC'S???Abs. NRBC - 0.0 k/mm3???Abs. Neut - 1.8 k/mm3???Abs. Lymph - 1.7 k/mm3???Abs. Centre - 0.4 k/mm3???Abs. Eo - 0.2 k/mm3???Abs. Baso - 0.0 k/mm3???Neut % - 43.1 %???Lymph % - 41.8 %???Centre % - 8.9 %???Eos % - 5.5 %???Baso % - 0.5 %???Imm Gran - 0.2 %???Abs. Imm Gran - 0.0 k/mm3 Comprehensive Metabolic Panel (08/14/2023) ???Sodium - 141 mmol/L???Potassium - 4.6 mmol/L???Chloride - 107 mmol/L???Bicarbonate Level - 24 mmol/L???Anion Gap - 10???Glucose Level - 91 mg/dL???BUN - 17 mg/dL???Creatinine-Blood - 0.7 mg/dL???Estimated GFR Creatinine - 88 ML/MIN/1.73 M2???Calcium - 9.4 mg/dL???Protein, Total - 6.4 Gm/dL???Albu min - 3.9 Gm/dL???AG Ratio - 1.6???Alkaline Phosphatase - 95 units/L???AST (SGOT) - 41 units/L???ALT (SGPT) - 29 units/L???Bilirubin, Total - 0.4 mg/dL Creatinine (08/23/2023) ???Creatinine-Blood - 0.5 mg/dL???Estimated GFR Creatinine - 104 ML/MIN/1.73 M2 DHEA Sulfate (08/19/2023) ???DHEA Sulfate - 35.5 ??g/dL Electrolytes (08/23/2023) ???Sodium - 140 mmol/L???Potassium - 4.0 mmol/L???Chloride - 106 mmol/L???Bicarbonate Level - 26 mmol/L???Anion Gap - 8 FREE T3 (08/18/2023) ???T3, Free - 4.5 pg/mL FREE T4 (08/18/2023) ???Free T4 - 1.41 ng/dL GLUCOSE POC (08/22/2023) ???Glucose, POC - 74 mg/dL HEMOGLOBIN A1C (08/19/2023) ???Hemoglobin A1C (Monitoring) - 5.6 % High??Sensitivity??Troponin T (08/14/2023) ???High Sensitivity Troponin (HSTnT) - 10 ng/L HOLD LAVENDER TUBE (08/21/2023) ???Hold Lavender Top - SPECIMEN DISCARDED AFTER 24 HOURS. Metanephrines Fract Plasma (08/19/2023) ???Plasma Metanephrines - 10.5???Plasma Normetanephrines - 69.3 SEDIMENTATION RATE,AUTOMATED (08/19/2023) ???Sed Rate - 26 mm/hr Troponin T, High Sensitivity (08/15/2023) ???High Sensitivity Troponin (HSTnT) - 8 ng/L TSH with T4 Reflex (Adults Only) (08/18/2023) ? ?TSH - <0.01 uIU/mL Urinalysis w/hold for Urine Culture (08/15/2023) ???Appear/Color, Urine - YELLOW???Specific Firth, Urine - 1.032???pH, Urine - 6.0???Albumin, Urine - TRACE???Glucose, Urine - NEGATIVE???Ketones, Urine - 1+???Bilirubin, Urine - NEGATIVE???Hemoglobin, Urine - 1+???Nitrite, Urine - NEGATIVE???Leukocyte, Urine - TRACE???Urobilinogen - NORMAL???WBC's, Urine - 3 /HPF???RBC's, Urine - 6 /HPF???Bacteria - SLIGHT???Squamous Epith - 4 /HPF???Mucus - SLIGHT???Hold Urine Culture - Testing available 48 hours from time of collection. Vitamin D 25 Hydroxy Level (08/21/2023) ???25 [place]-Vitamin D Level - 10.8 ng/mL Allergies (NKA means No Known Allergies) sulfADIAZINE??(Unknown) Problems Active Problems??(8) Depression?? History of kidney stones?? HLD (hyperlipidemia)?? HTN (hypertension)?? Macromastia?? Obstructive sleep apnea?? Prediabetes?? Severe obesity?? Education Materials Below is the list of Educational Leaflet Providered with your Discharge Instructions. Back Care Tips?? Back Pain (Acute or Chronic)?? Oxycodone Oral Tablet 5 mg?? Understanding Opioid Medicines for Pain Management?? Gabapentin Oral Capsule?? Understanding Osteonecrosis?? Lumbar Degenerative Disk Disease?? General Neck and Back Pain?? Valuables and Belongings I fully understand and agree that [facility] accepts no responsibility for all my personal property including clothing, toilet articles, radios, jewelry, dentures, hearing aids, rings, money, or any other property that is in my possession or is brought to me after admission. I understand certain valuables may be placed in a hospital safe for a short period of time. I understand that the hospital is not liable for loss or damage due to accident, fire, or other natural occurrence while said property is in the safe. I accept full responsibility for any personal property that I keep with me, and will not hold the hospital responsible in case of loss or disappearance. I acknowledge that i have been encouraged to send valuables and belongings home. ?? Review of Valuable and Belonging List: With patient Date for Pt to Sign Valuables/Belongings: 08/15/23 23:23:00 ?? Other Discharge Information ?? Wound Assessment?? Wound Assessment?? Wound Location I: pannus Wound Location II: breasts ?? Case Management Discharge Plan?? Discharge Plan?? Discharge Level of Care at Discharge: half-way facility Discharge Transportation Arranged: [facility] [address] [facility] ??[phone] Mode of Transportation Arranged: Ambulance Discharge Arranged Transport Date/Time: 08/26/23 15:00:00 Discharge Nursing Homes/Rehab Facilities: [facility] ?? Pulmonary Rehab Status?? Pulmonary Rehab Discharge Status?? Respiratory Rate: 16 br/min Respiratory Rate: 16 br/min Respiratory Rate: 16 br/min Respiratory Rate: 18 br/min ? Common Emergency Awareness Tips IS IT A STROKE? Act FAST and Check for these signs: FACE Does the face look uneven? ARM Does one arm drift down? SPEECH Does their speech sound strange? TIME Call at any sign of stroke ?? Heart Attack Signs Chest discomfort: Most heart attacks involve discomfort in the center of the chest and lasts more than a few minutes, or goes away and comes back. It can feel like uncomfortable pressure, squeezing, fullness or pain. Discomfort in upper body: Symptoms can include pain or discomfort in one or both arms, back, neck, jaw or stomach. Shortness of breath: With or without discomfort. Other signs: Breaking out in a cold sweat, nausea, or lightheaded. Remember, MINUTES DO MATTER. If you experience any of these heart attack warning signs, call to get immediate medical attention! ?? Smoking can increase your chances of developing chronic health problems and can cause harmful effects to other family members in your house. If you smoke, you are strongly encouraged to quit. Please call [facility] [employer] Link at [phone] or [phone] ([phone]) or log in to [email or web address] for referrals to smoking cessation programs. ?? 907 Suicide & Crisis Lifeline is available 26/05 if you or someone you know needs to find a reason to keep living. By calling 220 you'll be connected to a skilled, trained counselor at a crisis center in your area. INPATIENT DISCHARGE INSTRUCTIONS SIGNATURE PAGE MAGGY MARYCARMEN Location:[facility] Registration Date and Time:08/15/2023 18:31 EDT Primary Care Physician: Roxanna Bingham MD, Attending Physician: Johnson Acosta MD, I MARYCARMEN WINTER, have received the above patient education materials/instructions and have verbalized understanding. If ambulance or transport services are being used I further acknowledge being given a choice of service. ?? If you need to contact me, please call me at this number: . Patient/Hair Dryer Name: Patient/Hair Dryer Signature: Relationship to Patient: Witness Name/Signature: Date: * Dian Hurtado RN: PERFORM Event Display: Patient Education Leaflets Authored Date: [id number] Back Care Tips ?? [id number] Back Care Tips Caring for your back These are things you can do to prevent a recurrence of acute back pain and to reduce symptoms from chronic back pain: ??? Stay at a healthy weight. If you are overweight, losing weight will help mosttypes of back pain. ??? Exercise is an important part of recovery from most types of back pain. Themuscles behind and in front of the spine support the back. This means strengthening both the back muscles and the belly (abdominal) muscles will provide better support for your spine.? Swimming and brisk walking are good overall exercises to improve your fitness level. ??? Practice safe lifting methods (see below). ??? Practice good posture when sitting, standing, and walking. Don't sit for a long time. This puts more stress on the low back than standing or walking. ??? Wear quality shoes with good arch support. Foot and ankle alignment can affect back symptoms. Don't wear high heels. ??? Therapeutic massage can help relax the back muscles without stretching them. ??? During the first 24 to 72 hours after an acute injury or flare-up of chronic back pain, put an ice pack on the painful area for 20 minutes and then remove it for 20 minutes. Do this over a period of 60 to 90 minutes, or several times a day. As a safety precaution, don't use a heating pad at bedtime. Sleeping on a heating pad can lead to skin pimentel or tissue damage. ??? You can alternate using ice and heat. ?? Medicines Talk with your healthcare provider before using medicines, especially if you have other health problems or are taking other medicines. ??? You may use qvss-dvi-sapfzzb medicines, such as acetaminophen, ibuprofen, or naproxen to control pain, unless your healthcare provider prescribed other pain medicine. Talk with your provider before taking any medicines if you have a long-term (chronic) condition, such as diabetes, liver or kidney disease, stomach ulcers, or digestive bleeding, or are taking blood thinners. ??? Be careful if you are given prescription pain medicines, opioids, or medicine for muscle spasm. They can cause drowsiness, and affect your coordination, reflexes, and judgment. Don' t drive or operate heavy machinery while taking these types of medicines. Take prescription pain medicine only as prescribed by your provider. ?? Lumbar stretch This simple stretch will help relax muscle spasm and keep your back more limber. If exercise makes your back pain worse, don???t do it. ??? Lie on your back with your knees bent and both feet on the ground. ??? Slowly raise your left knee to your chest as you flatten your low back against the floor. Hold for 5 seconds. ??? Relax and repeat the exercise with your right knee. ??? Do 10 of these exercises for each leg. ?? Safe lifting method ??? Don???t bend over at the waist to lift an object off the floor.?? Instead, bend your knees and hips in a squat.? Keep your back and head upright ??? Hold the object closeto your body, directly in front of you. ??? Straighten your legs to lift the object.? Lower the object to the floor in the reverse fashion. ??? If you must slide something across the floor, push it. ?? Posture tips Sitting Sit in chairs with straight backs or low-back support. Keep your knees lower than your hips, with your feet flat on the floor. When driving, sit up straight. Adjust the seat forward so you are not leaning toward the steering wheel.??A small pillow or rolled towel behind your low back may help if you are driving long distances.?? Standing When standing for long periods, shift most of your weight to one leg at a time. Switch legs every few minutes.?? Sleeping The best way to sleep is on your side with your knees bent. Put a low pillow under your head to support your neck in a neutral spine position. Don't use thick pillows that bend your neck to one side.Put a pillow between your legs to further relax your low back. If you sleep on your back, put pillows under your knees to support your legs in a slightly flexed position. Use a firm mattress. If yourmattress sags, replace it, or use a 1/2-inch plywood board under the mattress to add support. ?? Follow-up care Follow up with your??healthcare provider as advised. If X-rays, a CT scan, or an MRI scan were taken, they may be reviewed by a radiologist. You will betold of any new findings that may affect your care. ?? Call 911 Call 911 if any of the following occur: ??? Trouble breathing ??? Confusion ??? Very drowsy ??? Fainting or loss of consciousness ??? Very fast or very slow heart rate ??? Loss of??bowel or bladder control ?? When to get medical advice Call your healthcare provider right away??if any of these occur: ??? Pain becomes worse or spreads to your arms or legs ??? Weakness or numbness in 1 or both arms or legs ??? Numbness in the groin area ?? Last Reviewed Date: 2022 ?? [id number] The [employer]. All rights reserved. This information is not intended as a substitute for professional medical care. Always follow your healthcare professional's instructions. ?? * Dian Hurtado RN: PERFORM Event Display: Patient Education Leaflets Authored Date: [id number] Back Pain (Acute or Chronic) ?? [id number] Back Pain (Acute or Chronic) Back pain is one of the most common problems. The good news is that most people feel better in 1 to2 weeks, and most of the rest in 1 to 2 months. Most people can remain active. People who have pain??describe it differently???not??everyone is the same. ??? The pain can be sharp, stabbing, shooting, aching, cramping or burning. ??? Movement, standing,bending, lifting, sitting, or walking may worsen pain. ??? It can be limited to one spot or area, or it can be more generalized. ??? It can spread upwards, to the front, or go down your arms or legs (sciatica). ??? It can cause muscle spasm. Most of the time, mechanical problems with the muscles??or spine cause the pain. Mechanical problems??are usually caused by an injury to the muscles or ligaments. Illness can cause back pain, but it's usually not caused by a serious illness. Mechanical problems include:? Physical activity such as sports, exercise, work, or normal activity ??? Overexertion, lifting,pushing, pulling incorrectly or too aggressively ??? Sudden twisting, bending, or stretching from an accident, or accidental movement ??? Poor posture ??? Stretching or moving wrong, without noticingpain at the time ??? Poor coordination, lack of regular exercise (check with your doctor about this) ??? Spinal disc disease or arthritis ??? Stress Pain can also be related to , or illness such as appendicitis, bladder or kidney infections, kidney stones, and pelvic infections. Acute back pain usually gets better in??1 to 2 weeks. Back pain related to disk disease, arthritis in the spinal joints, or narrowing of the spinal canal (spinal stenosis) can become chronic and lastfor months or years. Unless you had a physical injury such as a car accident or fall, X-rays are usually not needed for the first assessment of back pain. If pain continues and does not respond to medical treatment, you may need X-rays and other tests. Home care Try this home care advice: ??? When in bed, try??to find a position of comfort. A firm mattress is best. Try lying flat on your back with pillows under your knees. You can also try lying on your side with your knees bent up toward your chest and a pillow between your knees. ??? At first, don't try to stretch out the sore spots. If there is a strain, it's not like the good soreness you get after exercising without an injury. In this case, stretching may make it worse. ??? Don't sit for long periods, as in a long car ride or during other??travel. This puts more stress on the lower back than standing or walking. ??? During the first 24 to 72 hours after an acute injury or flare up of chronic back pain, apply an ice pack to the painful area for 20 minutes and then remove it for 20 minutes. Do this over a period of 60 to 90 minutes or several times a day. This will reduce swelling and pain. Wrap the ice pack in a thintowel or plastic to protect your skin. ??? You can start with ice, then switch to heat. Heat (hot shower, hot bath, or heating pad) reduces pain and works well for muscle spasms. Heat can be applied to the painful area for 20 minutes then remove it for 20 minutes. Do this over a period of 60 to 90 minutes or several times a day. Don't sleep on a heating pad. It can lead to skin pimentel or tissue damage. ??? You can alternate ice and heat therapy. Talk with your doctor about??the best treatment for your back pain. ??? Therapeutic massage can help relax the back muscles without stretching them. ??? Be aware of safe lifting methods. Don't lift anything without stretching first. Medicines Talk to your doctor before using medicine, especially if you have other medical problems or are taking other medicines. ??? You may use plez-gpr-lmkpwet medicine as directed on the bottle to control pain, unless another pain medicine was prescribed. Talk with your healthcare provider before using these medicines if you have chronic conditions such as diabetes, liver or kidney disease, stomach ulcers, or digestive bleeding. Also talk with your provider if you take blood thinners. ??? Be careful if you are given a prescription medicines, narcotics, or medicine for muscle spasms. They can cause drowsiness, affect your coordination, reflexes, and judgment. Don't drive or operate heavy machinery. ?? Follow-up care Follow up with your healthcare provider, or as advised.?? If X-rays were taken, you will be told of any new findings that may affect your care. ?? Call 911 Call 911 if any of the following occur: ??? Trouble breathing ??? Confusion ??? Very drowsy or trouble awakening ??? Fainting or loss of consciousness ??? Rapid or very slow heart rate ??? Loss of bowel or bladder control ?? When to seek medical advice Call your healthcare provider right away if any of these occur:? Pain gets worse or spreads toyour legs ??? Your bowel or bladder control changes ??? Fever ??? Blood in your urine ??? Weakness or numbness in one or both legs ??? Numbness in the groin or genital area ?? Last Reviewed Date: 2021 ?? [id number] The [employer]. All rights reserved. This information is not intended as a substitute for professional medical care. Always follow your healthcare professional's instructions. ?? * Puma Mott DO: PERFORM Event Display: Patient Education Leaflets Authored Date: [id number] Oxycodone Oral Tablet 5 mg ?? [id number] Oxycodone Oral Tablet 5 mg Uses For pain. ?? Instructions Some brands of this medicine should be swallowed whole while other brands may be crushed. Ask your pharmacist how you should take your medicine. This medicine may be taken with or without food. Swallow with a full glass (8 oz) of water unless your doctor gives you different instructions. Store at room temperature away from heat, light, and moisture. Do not keep in the bathroom. Please ask your doctor, nurse, or pharmacist how to discard unused medicines safely. To reduce constipation, eat high fiber foods, drink plenty of water and exercise. Avoid grapefruit juice while on this medicine. Drug interactions can change how medicines work or increase risk for side effects. Tell your healthcare providers about all medicines taken. Include prescription and wcwa-zkp-berhazl medicines, vitamins, and herbal medicines. Speak with your doctor or pharmacist before starting or stopping any medicine. Tell your doctor if symptoms do not get better or if they get worse. Parts of this medicine may come out in the stool. This is normal. ?? Cautions This medicine has an opioid. Opioids help many people but may cause addiction, especially if used for a long time. The addiction risk is higher if you have a substance use disorder (overuse of or addiction to drugs or alcohol). Ask your doctor about the benefits and risks. Ask your doctor or pharmacist if you should have naloxone on hand to treat opioid overdose. Teach your family or household members about the signs of an opioid overdose and how to treat it. If you stop this medicine suddenly after using it for a long time, you may have withdrawal. Your doctor may slowly lower your dose before stopping it. Tell your doctor right away if you have symptoms, such as unusual sweating, watering eyes, runny nose, chills, diarrhea, yawning, muscle aches, restlessness, anxiety, trouble sleeping, or thoughts of suicide. Tell your doctor and pharmacist if you ever had an allergic reaction to a medicine. Do not use the medication any more than instructed. If possible, avoid using with alcohol, marijuana, or other medicines that can cause dizziness or drowsiness. These include allergy/cold products, muscle relaxers, sleep aids, and pain relievers. Your ability to stay alert or to react quickly may be impaired by this medicine. Do not drive or operate machinery until you know how this medicine will affect you. This medicine passes into breast milk. Ask your doctor before . This medicine can hurt a new baby in the womb. If you become while on this medicine, tell your doctor immediately. Your doctor may switch you to a different medicine. This medicine should be used with caution in patients with breathing difficulties. Call your doctor right away if you notice slow or shallow breathing. Do not share this medicine with anyone who has not been prescribed this medicine. Some patients have serious side effects from this medicine. Ask your pharmacist to show you the information from the Food and Drug Administration (FDA) and discuss it with you. ?? Side Effects The following is a list of some common side effects from this medicine. Please speak with your doctor about what you should do if you experience these or other side effects. ??? decreased appetite ??? constipation ??? dizziness or drowsiness ??? lightheadedness ??? nausea and vomiting Call your doctor or get medical help right away if you notice any of these more serious side effects: ??? agitated feeling or trouble sleeping ??? decreased awareness or responsiveness ??? breathing interruption during sleep ??? shallow, irregular breathing ??? changes in memory, mood, or thinking ??? confusion ??? fainting ??? hallucinations (unusual thoughts, seeing or hearing things that are notreal) ??? seizures ??? severe stomach or bowel pain ??? unusual or unexplained tiredness or weakness ??? difficulty or discomfort urinating ??? weight loss A few people may have an allergic reaction to this medicine. Symptoms can include difficulty breathing, skin rash, itching, swelling, or severe dizziness. If you notice any of these symptoms, seek medical help quickly. ?? Extra Please speak with your doctor, nurse, or pharmacist if you have any questions about this medicine. ?? [email or web address] IMPORTANT NOTE: This document tells you briefly how to take your medicine, but it does not tell youall there is to know about it. Your doctor or pharmacist may give you other documents about your medicine. Please talk to them if you have any questions. Always follow their advice. There is a more complete description of this medicine available in Japanese. Scan this code on your smartphone or tablet or use the web address below. You can also ask your pharmacist for a printout. If you have any questions, please ask your pharmacist. The display and use of this drug information is subject to Terms of Use. Copyright(c) 2022 [employer]. ?? The Past[employer]. All rights reserved. This information is not intended as a substitute for professional medical care. Always follow your healthcare professional's instructions. ?? * Zaria Diaz: PERFORM Event Display: Discharge/Transfer Note Hospital Authored Date: [id number] Discharge Planning Nursing Entered On: 08/20/2023 14:14 EDT Performed On: 08/20/2023 14:13 EDT by Zaria Diaz Discharge Planning Nursing Anticipated discharge : Unable to determine Zaria Diaz - 08/20/2023 14:13 EDT Patient Care team information Care Team Personnel Name: Roxanna Bingham MD Position: S Outreach Member Role: PCP Address: Address: [address] [place] [address] [address] [place], [place] [address] Name: Aleksandra Bullock RN Position: [facility] SN RN Member Role: Primary Care Nurse Name: Triny Baugh Position: [facility] RN Member Role: Primary Care Nurse Name: Regulo Swanson RN Position: [facility] RN Member Role: Primary Care Nurse Name: Dian Hurtado RN Position: [facility] RN Member Role: Primary Care Nurse Name: Chasity RANGEL Attending Position: [facility] ED Medicine MD Name: Casper Julian RN Position: [facility] ED RN W/OE and Tasks Member Role: Patient Care Provider Name: Yudy Jones Position: [facility] ED OA Charge Member Role: ED Associate Name: Patricia Glez Position: [facility] ED TA [facility] Member Role: Patient Care Provider Care Team Related Persons Name: FREDDY PLASCENCIA Address: [place] [address] Name: CHECO NOBLES Address: [address] [address]
--- OUTSIDE RECORDS SUMMARY | 2024-02-13 11:20 | XMS_ITS | Continuity of Care Document ---
Author Organization [facility] Address [address] [place] [address]- Care Team Providers Care Automotive Tire Tester Name Role Phone Zachery ROCKWELL, Roxanna Primary Care Physician [id number] Date(s): 10/14/22 - 12/06/22 [facility] [address] [place] [address]- Attending Physician: Tara Chung NP Admitting Physician: Tara Chung NP Referring Physician: Hayley Christensen MD Allergies, Adverse Reactions, Alerts Substance Reaction [...] Response Smoking Status Current every day eduar linnette entered on: 04/08/18 Sex Patient Care team information Care Team Personnel Name: Roxanna Bingham MD Position: [facility] Physician -Physician Practices Member Role: PCP Address: Address: [address] [place] [address] [address] [place] [address] Name: Aleksandra Bullock RN Position: [facility] SN RN Member Role: Primary Care Nurse Care Team Related Persons Name: FREDDY PLASCENCIA Address: [place] [address] Name: CHECO NOBLES Address: [address] [address]
--- OUTSIDE RECORDS SUMMARY | 2024-02-13 11:20 | XMS_ITS | Continuity of Care Document ---
Author Organization [facility] Address [address] [place] [address]- Care Team Providers Care Rubber Covering Machine Operator Name Role Phone Zachery ROCKWELL, Roxanna Primary Care Physician [phone] Encounter [facility] Date(s): 11/11/22 - 12/29/22 [facility] [address] [place], [place] [address] Attending Physician: Tara Chung NP Admitting Physician: Tara Chung NP Referring Physician: Brittany Christensen MD Allergies, Adverse Reactions, Alerts Substance [...] Team Personnel Name: Roxanna Bingham MD Position: [facility] Physician -Physician Practices Member Role: PCP Address: Address: [address] [place] [address] [address] Name: Aleksandra Bullock RN Position: [facility] SN RN Member Role: Primary Care Nurse Care Team Related Persons Name: FREDDY PLASCENCIA Address: [place] [address] Name: CHECO NOBLES Address: home [address] [place] [address]
--- OUTSIDE RECORDS SUMMARY | 2024-02-13 11:20 | XMS_ITS | Continuity of Care Document ---
Author Organization [facility] Address [address] [place] [address] [address] [place] [address]- Care Team Providers Care Component Assembler Supervisor Name Role Phone Roxanna Bingham MD Primary Care Physician Encounter [facility] [id number] Date(s): 07/10/22 - 07/17/[address] [place] [address]- Attending Physician: Jered Castro Referring Physician: Roxanna [...] HTN (hypertension)(Confirmed) Active Macromastia(Confirmed) Active Prediabetes(Confirmed) Active Social History Social History Type Response Smoking Status Current every day eduar anglin entered on: 04/08/18 Sex Care Team Personnel Name: Roxanna Bingham MD Address: [address] [place] [address] [place] [address]
--- OUTSIDE RECORDS SUMMARY | 2024-02-13 11:20 | XMS_ITS | Continuity of Care Document ---
Author Organization [facility] ter Address [address] [place] [address]- Care Team Providers Care Language Asst Name Role Phone Zachery ROCKWELL, Roxanna Primary Care Physician Encounter [facility] Date(s): 10/11/22 - 12/29/[address] [address] Attending Physician: Hayley Christensen MD Admitting Physician: Hayley Christensen MD Allergies, Adverse Reactions, [...] Team Personnel Name: Roxanna Bingham MD Position: [facility] Physician -Physician Practices Member Role: PCP Address: Address: [address] [place] [address] [place] [address] Name: Aleksandra Bullock RN Position: [facility] SN RN Member Role: Primary Care Nurse Care Team Related Persons Name: FREDDY PLASCENCIA Address: [place] [address] Name: CHECO NOBLES Address: home [address] [place] [address]
--- OUTSIDE RECORDS SUMMARY | 2024-02-13 11:20 | XMS_ITS | Continuity of Care Document ---
Author Organization [facility] ter Address [address] [place] [address]- Care Team Providers Care Medical Research Associate Name Role Phone Roxanna Bingham MD Primary Care Physician Encounter [facility] [place] Date(s): 07/18/22 - 09/08/[address] [address]- Attending Physician: Miya Kelley MD Admitting Physician: Miya Kelley MD Referring Physician: Miya Kelley MD Allergies, Adverse Reactions, Alerts Substance Reaction [...] Personnel Name: Roxanna Bingham MD Address: Address: [address] [place] [address] [place] [address]
--- OUTSIDE RECORDS SUMMARY | 2024-02-13 11:20 | XMS_ITS | Continuity of Care Document ---
Author Organization [facility] Address [address] [place] [address] [address] [place] [address]- Care Team Providers Care Paint Grinder Stone Mill Name Role Phone Zachery ROCKWELL, Roxanna Primary Care Physician [phone] [id number] Date(s): 07/16/22 - 08/15/[address] [place] [address]- Allergies, Adverse Reactions, Alerts Substance Reaction Severity [...] Personnel Name: Roxanna Bingham MD Address: Address: [address] [place] [address] [address]
--- OUTSIDE RECORDS SUMMARY | 2024-02-13 11:20 | XMS_ITS | Continuity of Care Document ---
Author Organization [facility] Address [address] [place] [address]- Care Team Providers Care Natural Gas Basis Trader Name Role Phone Zachery ROCKWELL, Roxanna Primary Care Physician Encounter [facility] [place] Date(s): 11/29/22 - 12/29/22 [facility] [address] [place], [place] [address] Attending Physician: Yvette Downing Admitting Physician: Yvette [...] Team Personnel Name: Roxanna Bingham MD Position: [facility] Physician -Physician Practices Member Role: PCP Address: Address: [address] [place] [address] [address] Name: Aleksandra Bullock RN Position: [facility] SN RN Member Role: Primary Care Nurse Care Team Related Persons Name: FREDDY PLASCENCIA Address: [place] [address] Name: CHECO NOBLES Address: home [address] [place] [address]
--- OUTSIDE RECORDS SUMMARY | 2024-02-13 11:20 | XMS_ITS | Continuity of Care Document ---
Author Organization [facility] Address [address] [place] [address] [address] [place] [address]- Care Team Providers Care Section Weaver Name Role Phone Zachery ROCKWELL, Roxanna Primary Care Physician [id number] Date(s): 06/07/22 - 07/07/[address] [place] [address]- Allergies, Adverse Reactions, Alerts Substance Reaction Severity [...] Team Personnel Name: Roxanna Bingham MD Address: [address] [place] [address] [address] [place] [address]
--- OUTSIDE RECORDS SUMMARY | 2024-02-13 11:20 | XMS_ITS | Continuity of Care Document ---
Author Organization [facility] Address [address] [place] [address] ve [address] [place] [address]- Care Team Providers Care Home Performance Consultant Name Role Phone Roxanna Bingham MD [id number] Date(s[facility] 09/17/22 - 09/24/[address] [place] [address]- Attending Physician: Hayley Christensen MD Referring Physician: Art Prabhakar MD Allergies, Adverse Reactions, Alerts Substance Reaction [...] Prediabetes Confirmed Active Severe obesity Confirmed Active Vital Signs Most recent to oldest [Reference Range]: 1 Height 163 cm (09/17/22 10:44 AM) Weight 127.27 kg (09/17/22 10:44 AM) Pulse Rate [55-90 bpm] 90 bpm (09/17/22 10:44 AM) Body Mass Index [18.5-24.99 kg/m2] 47.9 kg/m2 *>HHI* (09/17/22 10:44 AM) Blood Pressure [90-138/55-84 mm Hg] 126/ 81mm Hg (09/17/22 10:44 AM) Respiratory Rate [16-30 br/min] 18 br/mi n (09/17/22 10:44 AM) Temperature [96.8-100.4 DegF] 97.5 DegF (09/17/22 10:44 AM) Blood pressure sites Arm, left (09/17/22 10:44 AM) Temperature Route Temporal (09/17/22 10:44 AM) Weight Obtained Via Patient/family state d (09/17/22 10:44 AM) Social History Social History Type Response Smoking Status Current every day eduar anglin entered on: 04/08/18 Sex Note * Erica Swanson [place]: PERFORM, SIGN, VERIFY Event Display: Patient Education/Instruction Authored Date: [id number] [facility] *BSA Gen Surg Clinical Summary Name MARYCARMEN WINTER Age 66 Years 1955 PCP Zachery ROCKWELL, Roxanna PCP Visit Date 09/17/2022 10:30:00 Additional Instructions: Scheduled Appointments?? Future Appointments ?No Future Appointments Scheduled Follow-Up Instructions ?? Diagnosis Medications: Please continue your medications until treatment is completed or stopped by your provider. Discuss any questions related to medications with your provider. Medications to Continue with No Changes These medications were not printed or sent to your pharmacy Diclofenac Topical (diclofenac sodium 1% topical cream) Next Dose: Escitalopram Oral Daily. Next Dose: Losartan (losartan 50 mg oral tablet) 1 tab(s) Oral Daily. Next Dose: Metformin (metFORMIN 500 mg oral tablet) 1 tab(s) Oral twice a day. Next Dose: mirabegron (Myrbetriq) Oral Daily. Next Dose: Nicotine (Nicotine 7 mg/24 hour patch) 1 patch(es) Daily. Next Dose: PEG Electrolyte Solution (MiraLax) 17 gram Oral Daily. Next Dose: Silver SulfADIAZINE Topical (Silvadene 1% cream) 1 maria victoria Topically Daily. Refills: 0. Next Dose: Simvastatin Oral Daily at Bedtime. Next Dose: Tramadol (Ultram ER 200 mg oral tablet, extended release) 1 tab(s) Oral Daily. Refills: 0. Next Dose: Allergy Info:?? sulfADIAZINE Medications Given This Visit Future Orders ?No future orders Vital Signs Height 163 cm Weight 127.27 kg BMI 47.9 kg/m2 Blood Pressure 126 mm Hg/81 mm Hg Temperature 97.5 DegF Pulse Rate 90 bpm Respiratory Rate 18 br/min 02 Sat Mode of Delivery / You can now view a summary of your hospital visit from the comfort of your home through a free online portal called [employer]. [employer] is a website that allows you to securely view your medical information including discharge summary, medications and follow-up visits. ??You can alsosend a secure electronic message to your doctor???s office to request appointments, renew medications or just ask a question. You can enroll at [email or web address] or register during your next office visit. Disclaimer:?? The information provided is of a general nature and is intended to be used in conjunction with the recommendations and advice of your health care practitioner. ??Every effort has been made to ensure that the information provided is accurate and complete at the time it is provided to you however, as your needs change, or, as new ??information becomes available, different or additional instructions may be required. If you have questions, please consult with your primary care provider or pharmacist, as appropriate. ??This information is not intended to serve as substitution for assessment and evaluation by a qualified health care provider. If you do not have a primary care provider, you may find a [facility] provider by calling [facility] at [phone]. For information about the plan of care including goals and instructions for your diagnosis, please see the patient education orders section of this document. Patient Education Materials?? The content of this educational material or handout may have been modified, supplemented, or adapted from its original content and format to support your individualized medical care. Please follow instructions discussed with your provider during this visit as well as any education documents you were given today. Patient Care team information Care Team Personnel Name: Roxanna Bingham MD Position: [facility] Physician -Physician Practices Member Role: PCP Address: Address: [address] [place] [address] Name: Aleksandra Bullock RN Position: [facility] SN RN Member Role: Primary Care Nurse Care Team Related Persons Name: FREDDY PLASCENCIA Address: [place] [address] Name: CHECO NOBLES Address: [address] [address]
--- OUTSIDE RECORDS SUMMARY | 2024-02-13 11:20 | XMS_ITS | Continuity of Care Document ---
Author Organization [facility] Address [address] [place] [address] [address] [place] [address]- Care Team Providers Care Rv Technician Name Role Phone Zachery ROCKWELL, Roxanna Primary Care Physician [phone] Encounter [facility] [place] [facility] [id number] Date(s): 07/24/22 - 07/31/[address] [place] [address]- Attending Physician: Jered Castro Allergies, Adverse Reactions, Alerts Substance Reaction Severity [...] Personnel Name: Roxanna Bingham MD Address: Address: [address] [place] [address] [place] [address]
--- OUTSIDE RECORDS SUMMARY | 2024-02-13 11:20 | XMS_ITS | Continuity of Care Document ---
Author Organization [facility] Address [address] [place] [address] [address] [place] [address]- Care Team Providers Care Associate Director Name Role Phone Zachery ROCKWELL, Roxanna Primary Care Physician En[facility] [place] Date(s): 07/23/22 - 08/22/[address] [place] [address]- Allergies, Adverse Reactions, Alerts Substance Reaction Severity [...] Personnel Name: Roxanna Bingham MD Address: Address: [address] [place] [address] [place] [address]
--- NOTE | 2024-02-13 12:57 | ECG_ITS ---
Test Reason : HYPOXIA Blood Pressure : / mmHG Vent. Rate : 094 BPM Atrial Rate : 094 BPM P-R Int : 160 ms QRS Dur : 098 ms QT Int : 368 ms P-R-T Axes : 037 010 079 degrees QTc Int : 460 ms Sinus rhythm frequent PACs Otherwise normal ECG No previous ECGs available Referred By: Ant Crenshaw Electronically Signed By:Félix Cordova
--- NOTE | 2024-02-13 13:15 | ED_ITS ---
HPI - General Adult General Chief complaint: General Medical Stated complaint: CELLULITIS IN LEGS Time Seen by Provider: 02/13/24 12:48 Source: patient History of Present Illness HPI narrative: 68 years old with past medical history of chronic pain syndrome, who is in rehab after a vertebra fracture 5 months ago, presents to the emergency for hypoxia and bilateral leg pain. Patient reports that she noticed pain and swelling in her legs approximately 7 days ago, pain has progressively getting worse she was started on cephalexin without improvement of her pain. Patient reports that pain is moderate to severe, 7/10 in severity localized bilaterally on her legs. She denies recent falls reports that she spends multiple hours between bed and wheelchair at rehab because of the pain. Patient did not have any shortness of breath, chest pain, cough however on arrival in triage she was noted to be hypoxic with SpO2 in room air of 84%. She was placed on 2 L nasal cannula with improvement of her O2 to 95% No abdominal pain , reports nausea but no vomiting Related Data Home Medications ?Medication ?Instructions ?Recorded ?Confirmed conjugated estrogens 0.625 mg/gram 1 appl vaginal BEDTIME 09/11/20 01/29/21 vaginal cream (Premarin) escitalopram oxalate 5 mg tablet 5 mg PO DAILY 09/11/20 01/29/21 hydrochlorothiazide 25 mg tablet 25 mg PO DAILY PRN Edema 09/11/20 01/29/21 losartan 50 mg tablet 50 mg PO DAILY 09/11/20 01/29/21 rosuvastatin 40 mg tablet 40 mg PO DAILY 09/11/20 01/29/21 Previous Rx's ?Medication ?Instructions ?Recorded lidocaine 4 % topical patch 1 patch topical DAILY PRN pain #10 09/15/20 ea cephalexin 500 mg tablet 1,000 mg (2 x 500 mg) PO Q6H 7 02/02/21 days #56 tabs celecoxib 100 mg capsule 100 mg PO BID #60 caps 02/27/21 Allergies Allergy/AdvReac Type Severity Reaction Status Date / Time oxycodone [From Percocet] Allergy Itching Verified 02/13/24 11:18 Sulfa (Sulfonamide Allergy Unknown Verified 02/13/24 11:18 Antibiotics) Review of Systems 2 Review of Systems: Yes all other systems are reviewed and are negative PMFSH Past Medical History Medical History Back pain Chronic pain syndrome Depression Elevated cholesterol Fatty liver Hypertension Kidney tumor Leg edema Low back pain Obesity Osteoarthritis, hip, bilateral Surgical History History of hemorrhoidectomy Hx of appendectomy Hx of bilateral breast reduction surgery Hx of section Hx of cholecystectomy Hx of colonoscopy Social History Social History Are you a primary respiratory care specialist to a significant other at home: No Do you presently have visiting nurse or other home services: No Alcohol intake: never Cigarettes Per Day: 5 Years Smoked: 35 Smoked in Last 30 Days: No Use of substances other than those prescribed or required for medical reasons: No Advance Directives: No Advance Directives Information Provided: Yes Physical Exam ED Vital Signs: Vital Signs - 24 hr 02/13/24 11:15 02/13/24 15:57 Temperature 98.4 F 98.2 F Pulse Rate 100 74 Respiratory Rate 20 18 Blood Pressure 140/79 H 142/75 H Pulse Oximetry 95 95 Oxygen Delivery Method Nasal Cannula Nasal Cannula Oxygen Flow Rate 2 BMI result Body Mass Index 48.9 General: Alert, Not in Distress Skin: Bilateral leg redness at the level of the weaver with some superficial lesions, no purulent discharge. HEENT: Atraumatic, No Exudate or Pharyngeal Erythema Resp: Normal Breath sounds bilaterally Cardio: Regular rate and Rhythm, Normal S1, S2 ABD: Abd soft, non tender, no guarding or rebound. Normal Bowel sounds. : No cva tenderness Neuro: Alert, oriented x4, PERRL Strenght 5/5 on all extremities Sensation is preserved in both lower and upper extremities Index to nose: normal Cranial Nerves II-XII grossly intact No dysarthria, or aphasia No neglet. Visual ray are normal bilaterally Psych: Cooperative, NO SI Course Reevaluation(s) Reevaluation #1: I PERSONALLY REVIEWED AND INTERPRETED THE PATIENT CTA CHEST NO EMBOLISM WAS SEEN THIS WAS CONFIRMED BY FORMAL REPORT FROM RADIOLOGIST. YOU ALSO ALLOWED SOME ATELECTASIS WHICH MAY ACCOUNT FOR PATIENT HYPOXEMIA. AT THIS TIME PATIENT HAS NEW HYPOXEMIA AND NOT IMPROVING CELLULITIS WHICH CONSIDERING THE FACT THAT PATIENT COMES FROM REHAB AND THAT HAS BEEN THERE FOR 5 MONTHS IS POSSIBLE THAT THESE SECONDARY TO MRSA THEREFORE RECEIVED CLINDAMYCIN. WILL CONSULT HOSPITALIST FOR ADMISSION. Time: 15:50 Medications Administered Discontinued Medications Generic Name Dose Route Start Last Admin Trade Name Caleb PRN Reason Stop Dose Admin Clindamycin HCl 600 mg 02/13/24 13:51 02/13/24 14:46 Clindamycin Hcl 300 Mg Capsule PO 02/13/24 13:52 600 mg ONCE ONE Administration Iohexol 100 ml 02/13/24 14:14 02/13/24 14:15 Iohexol 350 Mg/Ml 100 Ml Infus..Btl IV 02/13/24 14:15 65 ml ONCE ONE Administration Medical Decision Making Medical Decision Making [facility] Narrative: Patient presented to the emergency room for bilateral leg pain and redness that is not improving with p.o. cephalexin however on arrival in the emergency room patient was also found to be hypoxic with SpO2 in room air of 84%. Patient physical exam showed bilateral leg erythema which may be consistent with untreated cellulitis however in consideration of hypoxia the fact that the patient is in rehab not on anticoagulation I suspect she may also have a PE. Assessment of the leg which are bilaterally swollen is made difficult by patient's obesity, CHF is also among possible differential diagnosis. Plan CBC, BMP, sed rate, CRP, BNP CT angio chest EKG Lab Data [facility] Lab Attestation statement: I reviewed the patient's lab results. PATIENT'S LAB SHOWED MILD LEUKOCYTOSIS WITH INCREASED INFLAMMATORY MARKERS 02/13/24 13:10 02/13/24 13:10 Labs: Lab Results 02/13/24 02/13/24 Range/Units 13:10 13:14 WBC 10.9 H (4.8-10.8) X10*3/uL RBC 4.33 (4.20-5.50) X10*6/uL Hgb 14.1 (12.0-16.0) g/dl Hct 42.5 (37.0-47.0) % MCV 98.2 H (80.0-98.0) fL MCH 32.6 (27.0-33.0) pg MCHC 33.2 (31.0-35.0) g/dl RDW 12.9 (11.0-16.0) % Plt Count 204 (160-400) X10*3/uL MPV 9.3 L (9.4-12.3) fL Immature Gran % (Auto) 0.5 H (0.0-0.4) % Neut % (Auto) 79.0 H (45-73) % Lymph % (Auto) 14.0 L (20-40) % Kimble % (Auto) 5.3 (2-11) % Eos % (Auto) 0.7 (0-4) % Baso % (Auto) 0.5 (0-2) % Lymph # (Auto) 1.5 (1.2-4.9) X10*3/uL Kimble # (Auto) 0.6 (0.1-1.2) X10*3/uL Eos # (Auto) 0.1 (0.0-0.4) X10*3/uL Baso # (Auto) 0.1 (0.0-0.2) X10*3/uL Abs Immat Gran (auto) 0.05 H (0.00-0.03) X10*3/uL Absolute Neuts (auto) 8.6 H (2.0-8.3) x10*3/uL Absolute Nucleated RBC 0.000 (0.0-0.012) X10*3/uL Nucleated RBC % (auto) 0.0 (0.0-0.2) /100WBC ESR 44 H (0-20) MM/HR VBG pH 7.40 (7.32-7.43) VBG pCO2 63 mmHg VBG pO2 41 mmHg VBG HCO3 39 H (22-26) mmol/L VBG O2 Saturation 66.0 % VBG Base Excess 11.6 mmol/L Sodium 137 (135-145) mmol/L Potassium 3.5 (3.3-5.1) mmol/L Chloride 92 L (96-108) mmol/L Carbon Dioxide 35 H (22-29) mmol/L Anion Gap 14 (12-20) BUN 18 H (9-16) mg/dL Creatinine 0.68 (0.5-1.4) mg/dL Estim Creat Clear Calc 102.7 Estimated GFR > 60 Random Glucose 183 H (60-115) mg/dL Calcium 10.2 (8.4-10.2) mg/dL Troponin I High Sens 7.1 (<3.5-17.0) ng/L C-Reactive Protein 4.88 H (< or = 0.50) mg/dL B-Natriuretic Peptide 28 (<100) pg/mL Influenza Type A (PCR) NEGATIVE (Negative) Influenza Type B (PCR) NEGATIVE (Negative) RSV RNA Qual (PCR) NEGATIVE (Negative) SARS-CoV-2 RNA (RT-PCR) NEGATIVE (Negative) Independent Interpretation I performed an independent interpretation of an: EKG (I personally reviewed and interpreted the patient's EKG that shows sinus rhythm with multiple supraventricular ectopic.) and CT Scan (Personally reviewed and interpreted patient's CTA chest no pulmonary embolism) Prescription Management I considered prescription management with: Pain Medication Social Determinants From [facility] Discharge Plan Discharge Clinical Impression: Bilateral cellulitis of lower leg, Obesity, Hypoxemia, Acute atelectasis Patient Disposition: Admitted As Inpatient Print Language: Belizean
[2024-02-13 13:17] LABS: MANUAL DIFF FLAG NO
[2024-02-13 13:19] LABS: Basophils Absolute Auto 0.1 X10*3/uL (0.0-0.2); Basophils Percent Auto 0.5 % (0-2); Eosinophils Absolute Auto 0.1 X10*3/uL (0.0-0.4); Eosinophils Percent Auto 0.7 % (0-4); Hematocrit 42.5 % (37.0-47.0); Hemoglobin 14.1 g/dl (12.0-16.0); Imm Gran Abs Auto 0.05 X10*3/uL (0.00-0.03); Imm Gran Pct Auto 0.5 % (0.0-0.4); Lymphocytes Absolute Auto 1.5 X10*3/uL (1.2-4.9); Mean Corpuscular HGB Conc 33.2 g/dl (31.0-35.0); Mean Corpuscular Hemoglobin 32.6 pg (27.0-33.0); Mean Corpuscular Volume 98.2 fL (80.0-98.0); Mean Platelet Volume 9.3 fL (9.4-12.3); Monocytes Absolute Auto 0.6 X10*3/uL (0.1-1.2); Monocytes Percent Auto 5.3 % (2-11); Neutrophils Absolute Auto 8.6 x10*3/uL (2.0-8.3); Platelet Count 204 X10*3/uL (160-400); Red Blood Count 4.33 X10*6/uL (4.20-5.50); Red Cell Distribution Width 12.9 % (11.0-16.0); White Blood Count 10.9 X10*3/uL (4.8-10.8)
[2024-02-13 13:20] LABS: VBG Base Excess 11.6 mmol/L; VBG HCO3 39 mmol/L (22-26); VBG pCO2 63 mmHg; VBG pO2 41 mmHg
[2024-02-13 13:39] LABS: Venous Blood Gas Refer to POC result
[2024-02-13 13:39] LABS: Anion Gap 14 (12-20); Blood Urea Nitrogen 18 mg/dL (9-16); C Reactive Protein 4.88 mg/dL (< or = 0.50); Calcium 10.2 mg/dL (8.4-10.2); Carbon Dioxide 35 mmol/L (22-29); Chloride 92 mmol/L (96-108); Creatinine Clr Calc Pharmacy 102.7; Estimated Glomerular Filt Rate > 60; Glucose Random 183 mg/dL (60-115); Potassium 3.5 mmol/L (3.3-5.1); Sodium 137 mmol/L (135-145)
[2024-02-13 13:44] LABS: B Type Natriuretic Peptide 28 pg/mL (<100)
[2024-02-13 13:45] LABS: Troponin-I High Sensitivity 7.1 ng/L (<3.5-17.0)
[2024-02-13 13:57] LABS: Influenza A PCR NEGATIVE (Negative); Influenza B PCR NEGATIVE (Negative); Resp Syncy Virus RNA Qual PCR NEGATIVE (Negative); SARS COV2 PCR INHOUSE NEGATIVE (Negative)
[2024-02-13 13:58] LABS: Erythrocyte Sedimentation Rate 44 MM/HR (0-20)
[2024-02-13] MEDS: iohexoL 350 MG/ML 100 ML INFUS..BTL IV (14:15)
[2024-02-13] MEDS: Clindamycin HCL 300 MG CAPSULE 600 MG PO (14:46)
[2024-02-13 15:57] VITALS: BP 142/75; PULSE 74; RESP 18; TEMP 36.8; O2SAT 95
--- NOTE | 2024-02-13 16:19 | PM.IMHP ---
History of Present Illness Date of Service: 02/13/24 Attending physician on admission: Maureen Gordon Chief Complaint: Worsening leg pain Pt is a 68-year-old female with a PMH significant for?HLD, chronic lower leg edema, chronic pain syndrome, and mood disorder who presents to the ED from [facility] for evaluation of worsening bilateral lower leg pain and redness. Pt has been at [facility] for past 5 months due to lower vertebral compression fracture. Sates has been having increased lower leg pain with standing or walking for the past two weeks. Was not elevating her legs at [facility] and found that water was weeping out of her legs. One week ago noticed sores started appearing on lower legs along with spreading erythema was started on cephalexin 500 mg q.6. Today patient found she could barely walk with a walker secondary to pain and weakness. Reports legs do not itch and then she has not been scratching or touching them. Denies fever, chills, nausea, vomiting. No abdominal pain. Denies chest pain/pressure, palpitations. No shortness of breath or increased cough. States does not carry a diagnosis of asthma or COPD in his not on home O2, but notes has smoked on average a pack a day since she was 9 years old. Quit smoking 7 months ago. In the ED pt was Labs were significant for WBC 10.9, chloride 92, bicarb 35, C-reactive protein 3.88 and CRP 44. Tested negative for influenza type a and B, RSV, and COVID. CXR showed low lung volumes with no evidence of acute disease in the chest. CTA of chest found no evidence of pulmonary embolism or pneumonia, but found minimal dependent atelectasis at lung bases. EKG demonstrated sinus rhythm with marked sinus arrhythmia but no evidence of ST elevations or depressions. Pt was treated with acetaminophen and clindamycin 600 mg p.o. Pt will be admitted to the hospital treatment and further evaluation of bilateral lower leg cellulitis that failed outpatient therapy and acute hypoxic respiratory failure likely secondary to obesity hypoventilation syndrome versus deconditioning. Review of Systems Review of Systems: Bilateral lower leg pain, redness, swelling Chronic back pain at baseline Denies fever, chills, nausea, vomiting No shortness of breath or cough Denies chest pain/pressure, palpitations. [facility] Medical History Depression Chronic pain syndrome Obesity Low back pain Osteoarthritis, hip, bilateral Leg edema Back pain Kidney tumor Fatty liver Elevated cholesterol Hypertension Surgical History Hx of cholecystectomy History of hemorrhoidectomy Hx of section Hx of appendectomy Hx of bilateral breast reduction surgery Hx of colonoscopy Social History Are you a primary child care center assistant director to a significant other at home: No Do you presently have visiting nurse or other home services: No Alcohol intake: never Cigarettes Per Day: 5 Years Smoked: 35 Smoked in Last 30 Days: No Use of substances other than those prescribed or required for medical reasons: No Advance Directives: No Advance Directives Information Provided: Yes Meds Allergies Allergy/AdvReac Type Severity Reaction Status Date / Time oxycodone [From Percocet] Allergy Itching Verified 02/13/24 11:18 Sulfa (Sulfonamide Allergy Unknown Verified 02/13/24 11:18 Antibiotics) Home Medications ?Medication ?Instructions ?Recorded ?Confirmed ?Last Taken ?Type escitalopram oxalate 5 mg tablet 5 mg PO DAILY 09/11/20 02/13/24 09/15/20 History losartan 50 mg tablet 50 mg PO BID 09/11/20 02/13/24 02/02/21 09:00 History acetaminophen 325 mg tablet 975 mg PO TID 02/13/24 02/13/24 Unknown History cephalexin 500 mg tablet 500 mg PO Q6H 02/13/24 02/13/24 Unknown History cholecalciferol (vitamin D3) 25 25 mcg PO DAILY 02/13/24 02/13/24 Unknown History mcg (1,000 unit) tablet docusate sodium 100 mg tablet 100 mg PO BID 02/13/24 02/13/24 Unknown History furosemide 20 mg tablet 60 mg PO DAILY 02/13/24 02/13/24 Unknown History guaifenesin 100 mg/5 mL oral liquid 200 mg PO Q4H PRN Cough 02/13/24 02/13/24 Unknown History hydrochlorothiazide 50 mg tablet 50 mg PO BID 02/13/24 02/13/24 Unknown History hydrocortisone 1 % topical cream 1 appl topical TID PRN Hemorrhoids 02/13/24 02/13/24 Unknown History (Preparation H Hydrocortisone) hydroxyzine HCl 25 mg tablet 25 mg PO TID PRN Itching 02/13/24 02/13/24 Unknown History ondansetron 4 mg disintegrating 4 mg PO Q6H PRN Nausea And Vomiting 02/13/24 02/13/24 Unknown History tablet potassium chloride 20 mEq 20 meq PO BID 02/13/24 02/13/24 Unknown History tablet,extended release(part/cryst) prednisone 10 mg tablet 10 mg PO DAILY 02/13/24 02/13/24 Unknown History quetiapine 50 mg tablet 50 mg PO BEDTIME 02/13/24 02/13/24 Unknown History rosuvastatin 5 mg tablet 5 mg PO DAILY 02/13/24 02/13/24 Unknown History sennosides 8.6 mg tablet (senna) 17.2 mg PO BEDTIME 02/13/24 02/13/24 Unknown History simethicone 80 mg chewable tablet 80 mg PO Q6H PRN gas 02/13/24 02/13/24 Unknown History tizanidine 2 mg tablet 2 mg PO TID 02/13/24 02/13/24 Unknown History tramadol 50 mg tablet 50 mg PO Q4H PRN Pain 02/13/24 02/13/24 Unknown History tramadol 50 mg tablet 100 mg PO BID 02/13/24 02/13/24 Unknown History trazodone 100 mg tablet 100 mg PO BEDTIME 02/13/24 02/13/24 Unknown History Physical Exam Vital Signs and Narrative: Vital Signs: Last Vital Signs Temp 98.2 F 02/13/24 15:57 Pulse 74 02/13/24 15:57 Resp 18 02/13/24 15:57 BP 142/75 H 02/13/24 15:57 Pulse Ox 95 02/13/24 15:57 O2 Del Method Nasal Cannula 02/13/24 15:57 O2 Flow Rate 2 02/13/24 15:57 BMI result Body Mass Index 48.9 Constitutional: Alert, emotionally labile, in no acute distress. Mental Status: Oriented to person, place and time. Eyes: Pupils are equal, round, and reactive to light. Ear, Nose, and Throat: Oropharynx clear, mucous membranes moist. Ears and nose without deformities. Trachea midline. Respiratory: Clear to auscultation bilaterally. No wheezing, rales, or rhonchi. Cardiovascular: S1, S2 regular. No murmurs, rubs, or gallops. Gastrointestinal: Abdomen soft, non-tender, obese. Normal bowel sounds. Neurologic: Cranial nerves II-XII are grossly intact bilaterally. No focal neurological deficits. Moves all extremities spontaneously. Skin: Left sided erythema with satellite lesions in abdominal folds. As pictured below Extremities: 2+ bilateral pitting edema. Bilateral lower leg erythema and warmth with multiple small superficial excoriations, as pictured below. Psychiatric: Normal mood and affect. Results Labs 02/13/24 13:10 02/13/24 13:10 Labs: Laboratory Results - last 24 hr 02/13/24 02/13/24 13:10 13:14 MCV 98.2 H MCH 32.6 MCHC 33.2 RDW 12.9 Plt Count 204 MPV 9.3 L Immature Gran % (Auto) 0.5 H Neut % (Auto) 79.0 H Lymph % (Auto) 14.0 L [place] % (Auto) 5.3 Eos % (Auto) 0.7 Baso % (Auto) 0.5 Lymph # (Auto) 1.5 [place] # (Auto) 0.6 Eos # (Auto) 0.1 Baso # (Auto) 0.1 Abs Immat Gran (auto) 0.05 H Absolute Neuts (auto) 8.6 H Absolute Nucleated RBC 0.000 Nucleated RBC % (auto) 0.0 ESR 44 H VBG pH 7.40 VBG pCO2 63 VBG pO2 41 VBG HCO3 39 H VBG O2 Saturation 66.0 VBG Base Excess 11.6 Anion Gap 14 Estim Creat Clear Calc 102.7 Estimated GFR > 60 Random Glucose 183 H Calcium 10.2 Troponin I High Sens 7.1 C-Reactive Protein 4.88 H B-Natriuretic Peptide 28 Influenza Type A (PCR) NEGATIVE Influenza Type B (PCR) NEGATIVE RSV RNA Qual (PCR) NEGATIVE SARS-CoV-2 RNA (RT-PCR) NEGATIVE Imaging Radiologist's Impressions: Impressions Chest X-Ray 02/13/24 13:50 IMPRESSION: Low lung volumes. No evidence for acute disease in the chest. Chest CTA 02/13/24 14:35 IMPRESSION: No evidence of pulmonary embolism. VTE: negative Assessment and Plan (1) Bilateral cellulitis of lower leg: Status: Acute Plan Pt is a 68-year-old female with a PMH significant for?HLD, chronic lower leg edema, chronic pain syndrome, and mood disorder who presents to the ED from [facility] for evaluation of worsening bilateral lower leg pain and redness. Pt will be admitted to the hospital treatment and further evaluation of bilateral lower leg cellulitis that failed outpatient therapy and acute hypoxic respiratory failure likely secondary to obesity hypoventilation syndrome versus deconditioning. Bilateral lower leg cellulitis Increased swelling, erythema, excoriations, and pain x2 weeks Started on cephalexin 500 mg p.o. q.6 to little effect Pt does not meet sepsis criteria: Tachycardia of 100 but no tachypnea, fever, or leukocytosis Will treat with Zosyn, started 02/13/2024 Follow cultures Question of underlying PAD vs chronic venous stasis Vascular surgery consult Acute hypoxic respiratory failure Pt desatting as low as 84% on RA Denies hx COPD or asthma but has 55+ pack year smoking hx, quit 7 months ago CXR and CTA of chest negative for acute pulmonary disease Likely secondary to obesity hypoventilation syndrome vs physical deconditioning F/U outpatient for sleep study to evaluate for ROBERTA Titrate supplemental O2 >92, wean as tolerated Chronic lower extremity edema Hold home diuretics Will treat with Lasix 40mg IV b.i.d. Chronic pain syndrome Continue home analgesics HLD Statin Mood disorder Continue home meds Obesity class III Weight loss encouraged DNR/DNI Attending:?Dr. Gordon DVT Prophylaxis: Lovenox Pt will require a hospitalization of at least two nights for treatment of?bilateral lower leg cellulitis. Given that patient has failed outpatient therapy for cellulitis, will require hospitalization for administration of IV antibiotics, as well as supplemental O2 for hypoxia. Quality Stroke Does the patient have a stroke diagnosis?: No VTE Prior VTE?: No VTE Risk Level:: Medical - moderate - high VTE Device Contraindication: Treatment Not Indicated VTE Drug Contraindication: N/A - Med Ordered
[2024-02-13] MEDS: Acetaminophen 325 MG TABLET 975 MG PO (16:34)
[2024-02-13 17:03] VITALS: PULSE 100; RESP 18; O2SAT 90
--- NOTE | 2024-02-13 17:03 | PC.NURSE ---
02 removed, pt 90% RA per hospitalist
--- NOTE | 2024-02-13 17:09 | PHA.MEDREC ---
Pharmacy Consult ? Medication Reconciliation Pharmacy has completed the medication reconciliation. Patient from [facility] with med list. Lavern Phipps, SpencerD
[2024-02-13] MEDS: Enoxaparin Sodium 40 MG/0.4 ML SYRINGE SUBCUT (19:08)
[2024-02-13] MEDS: Piperacillin Sodium/Tazobactam 3.375 GM in 0.9 % Sodium Chloride 50 ML IV (19:09)
[2024-02-13] MEDS: Sennosides 8.6 MG TABLET 17.2 MG PO (20:58)
[2024-02-13] MEDS: traZODone HCL 100 MG TABLET PO (20:58)
[2024-02-13] MEDS: Docusate Sodium 100 MG CAPSULE PO (20:58)
[2024-02-13] MEDS: Losartan Potassium 50 MG TABLET PO (20:58)
[2024-02-13] MEDS: traMADoL HCL 50 MG TABLET 100 MG PO (20:58)
[2024-02-13] MEDS: Potassium Chloride ER 20 MEQ TAB.ER.PRT PO (20:59)
[2024-02-13] MEDS: Nystatin Powder 15 GM BOTTLE 1 APPL TOPICAL (20:59)
[2024-02-13] MEDS: QUEtiapine Fumarate 50 MG TABLET PO (20:59)
[2024-02-13 21:47] VITALS: BMI 46.7
[2024-02-13 22:09] VITALS: BP 155/77; PULSE 82; RESP 18; TEMP 36.3; O2SAT 93
[2024-02-13] MEDS: 0.9 % Sodium Chloride Flush 3 ML SYRINGE IVFLUSH (22:11)
[2024-02-14] MEDS: Nystatin Ointment 15 GM TUBE 1 APPL TOPICAL ×3 (00:04→20:48)
[2024-02-14] MEDS: Piperacillin Sodium/Tazobactam 3.375 GM in 0.9 % Sodium Chloride 50 ML IV ×4 (00:04→17:39)
[2024-02-14 03:48] VITALS: BP 132/73; PULSE 99; RESP 19; TEMP 36.1; O2SAT 92
[2024-02-14] MEDS: traMADoL HCL 50 MG TABLET PO ×2 (04:08→15:33)
[2024-02-14] MEDS: Magnesium Hydrox/Alum Hydrox 30 ML ORAL.SUSP 15 ML PO (05:36)
[2024-02-14] MEDS: Acetaminophen 325 MG TABLET 650 MG PO (06:15)
[2024-02-14 06:21] LABS: Alanine Aminotransferase 17 U/L (0-31); Albumin Level 3.6 g/dL (3.5-5.0); Alkaline Phosphatase 76 U/L (39-117); Anion Gap 14 (12-20); Aspartate Amino Transferase 19 U/L (5-31); Bilirubin Total 0.8 mg/dL (0.0-1.0); Blood Urea Nitrogen 15 mg/dL (9-16); Calcium 9.3 mg/dL (8.4-10.2); Carbon Dioxide 33 mmol/L (22-29); Chloride 94 mmol/L (96-108); Creatinine Clr Calc Pharmacy 107.8; Estimated Glomerular Filt Rate > 60; Glucose Random 155 mg/dL (60-115); Sodium 138 mmol/L (135-145); Total Protein 7.3 g/dL (6.5-8.0)
[2024-02-14 07:34] VITALS: BP 129/62; PULSE 96; RESP 18; TEMP 36.3; O2SAT 92
[2024-02-14] MEDS: traMADoL HCL 50 MG TABLET 100 MG PO ×2 (09:16→20:45)
[2024-02-14] MEDS: TiZANidine HCL 4 MG TABLET 2 MG PO ×3 (09:17→20:46)
[2024-02-14] MEDS: Potassium Chloride ER 20 MEQ TAB.ER.PRT PO ×3 (09:18→20:45)
[2024-02-14] MEDS: Atorvastatin Calcium 20 MG TABLET PO (09:19)
[2024-02-14] MEDS: Losartan Potassium 50 MG TABLET PO ×2 (09:19→20:46)
[2024-02-14] MEDS: predniSONE 10 MG TABLET PO (09:19)
[2024-02-14] MEDS: Escitalopram Oxalate 5 MG TABLET PO (09:19)
[2024-02-14] MEDS: Docusate Sodium 100 MG CAPSULE PO ×2 (09:19→20:44)
[2024-02-14] MEDS: Furosemide 40 MG TABLET PO ×2 (09:19→17:39)
[2024-02-14] MEDS: Cholecalciferol (Vitamin D3) 25 MCG TABLET PO (09:19)
[2024-02-14] MEDS: 0.9 % Sodium Chloride Flush 3 ML SYRINGE IVFLUSH ×3 (09:20→20:47)
[2024-02-14] MEDS: Nystatin Powder 15 GM BOTTLE 1 APPL TOPICAL ×2 (09:23→20:48)
[2024-02-14] MEDS: hydrOXYzine HCL 25 MG TABLET PO (09:27)
[2024-02-14 10:14] LABS: MRSA Nasal PCR NEGATIVE (Negative); SA Nasal PCR NEGATIVE (Negative)
--- NOTE | 2024-02-14 10:25 | HO.PM.IMPN ---
Subjective Subjective Date of Service: 02/14/24 Interval History: Complaining of back pain, denies shortness of breath admit to have history of obstructive sleep apnea, not compliant with CPAP due to intolerance, denies cough, no shortness of breath, no acute events overnight denies fever, no chills. Review of Systems All other system reviewed and negative. Physical Exam Vital Signs: Vital Signs: Last Vital Signs Temp 97.3 F 02/14/24 07:34 Pulse 96 02/14/24 07:34 Resp 18 02/14/24 07:34 BP 129/62 02/14/24 07:34 Pulse Ox 92 02/14/24 07:34 O2 Del Method Nasal Cannula 02/14/24 07:34 O2 Flow Rate 2 02/14/24 07:34 BMI result Body Mass Index 46.7 Const: Other: General awake alert x3, resting comfortably in no acute distress. Neck supple no JVD. CVS regular rate rhythm, Respiratory lungs clear to auscultation, no respiratory distress, no wheeze, no rhonchi. Gastrointestinal abdomen soft, non tender, bowel sounds audible, no guarding , no rigidity. Extremities bilateral pitting edema. Neuro non focal Skin unchanged from yesterday see pictures from admission note Psych appropriate affect Objective Data Active Medications Acetaminophen (Acetaminophen 325 Mg Tablet) 650 mg PO Q6H PRN PRN Reason: Pain, Mild (Pain Scale 1-3) Last Admin: 02/14/24 06:15 Dose: 650 mg Documented By: HOLLEY Al Hydroxide/Mg Hydroxide (Magnesium Hydrox/Alum Hydrox 30 Ml Oral.Susp) 15 ml PO Q6H PRN PRN Reason: Heartburn Last Admin: 02/14/24 05:36 Dose: 15 ml Documented By: HOLLEY Atorvastatin Calcium (Atorvastatin Calcium 20 Mg Tablet) 20 mg PO DAILY [facility] Last Admin: 02/14/24 09:19 Dose: 20 mg Documented By: NITZA Docusate Sodium (Docusate Sodium 100 Mg Capsule) 100 mg PO BID [facility] Last Admin: 02/14/24 09:19 Dose: 100 mg Documented By: NITZA Enoxaparin Sodium (Enoxaparin Sodium 40 Mg/0.4 Ml Syringe) 40 mg SUBCUT Q24H [facility] Last Admin: 02/13/24 19:08 Dose: 40 mg Documented By: CAMILLA Escitalopram Oxalate (Escitalopram Oxalate 5 Mg Tablet) 5 mg PO DAILY [facility] Last Admin: 02/14/24 09:19 Dose: 5 mg Documented By: NITZA Furosemide (Furosemide 40 Mg Tablet) 40 mg PO BID@0900,1800 [facility]; Protocol Last Admin: 02/14/24 09:19 Dose: 40 mg Documented By: NITZA Guaifenesin (Guaifenesin 100 Mg/5 Ml Liquid) 10 ml PO Q4H PRN PRN Reason: Cough Hydroxyzine HCl (Hydroxyzine Hcl 25 Mg Tablet) 25 mg PO TID PRN PRN Reason: Itching Last Admin: 02/14/24 09:27 Dose: 25 mg Documented By: NITZA Piperacillin Sod/Tazobactam (Sod 3.375 gm/ Sodium Chloride) 50 mls @ 100 mls/hr IV Q6H [facility] Last Infusion: 02/14/24 06:11 Dose: Infused Documented By: HOLLEY Lidocaine (Lidocaine 4 % Patch Adh..Patch) 1 patch TRANSDERMA DAILY PRN; Protocol PRN Reason: Pain, Mild (Pain Scale 1-3) Losartan Potassium (Losartan Potassium 50 Mg Tablet) 50 mg PO BID [facility]; Protocol Last Admin: 02/14/24 09:19 Dose: 50 mg Documented By: NITZA Melatonin (Melatonin 3 Mg Tablet) 6 mg PO BEDTIME PRN PRN Reason: Insomnia Nystatin (Nystatin Powder 15 Gm Bottle) 1 appl TOPICAL BID [facility]; Protocol Last Admin: 02/14/24 09:23 Dose: 1 appl Documented By: NITZA Nystatin (Nystatin Ointment 15 Gm Tube) 1 appl TOPICAL BID [facility]; Protocol Last Admin: 02/14/24 09:23 Dose: 1 appl Documented By: NITZA Ondansetron HCl (Ondansetron Hcl 4 Mg/2 Ml Vial) 4 mg IVPUSH Q8H PRN PRN Reason: Nausea and Vomiting Potassium Chloride (Potassium Chloride Er 20 Meq Tab.Er.Prt) 20 meq PO BID [facility] Last Admin: 02/14/24 09:18 Dose: 20 meq Documented By: NITZA Quetiapine Fumarate (Quetiapine Fumarate 50 Mg Tablet) 50 mg PO BEDTIME [facility] Last Admin: 02/13/24 20:59 Dose: 50 mg Documented By: JULIUS Senna (Sennosides 8.6 Mg Tablet) 17.2 mg PO BEDTIME [facility] Last Admin: 02/13/24 20:58 Dose: 17.2 mg Documented By: JULIUS Simethicone (Simethicone 80 Mg Tab.Chew) 80 mg PO Q6H PRN PRN Reason: gas Sodium Chloride (0.9 % Sodium Chloride Flush 3 Ml Syringe) 3 ml IVFLUSH QSHIFT [facility] Last Admin: 02/14/24 09:20 Dose: 3 ml Documented By: NITZA Tizanidine HCl (Tizanidine Hcl 4 Mg Tablet) 2 mg PO TID [facility] Last Admin: 02/14/24 09:17 Dose: 2 mg Documented By: NITZA Tramadol HCl (Tramadol Hcl 50 Mg Tablet) 50 mg PO Q4H PRN PRN Reason: Pain, Moderate(Pain Scale 4-6) Last Admin: 02/14/24 04:08 Dose: 50 mg Documented By: HOLLEY Tramadol HCl (Tramadol Hcl 50 Mg Tablet) 100 mg PO BID [facility] Last Admin: 02/14/24 09:16 Dose: 100 mg Documented By: NITZA Trazodone HCl (Trazodone Hcl 100 Mg Tablet) 100 mg PO BEDTIME [facility] Last Admin: 02/13/24 20:58 Dose: 100 mg Documented By: JULIUS Vitamin D (Cholecalciferol (Vitamin D3) 25 Mcg Tablet) 25 mcg PO DAILY [facility] Last Admin: 02/14/24 09:19 Dose: 25 mcg Documented By: NITZA Labs 02/13/24 13:10 02/14/24 05:29 Labs: Laboratory Results - last 24 hr 02/13/24 02/13/24 02/13/24 13:10 13:14 18:06 MCV 98.2 H MCH 32.6 MCHC 33.2 RDW 12.9 Plt Count 204 MPV 9.3 L Immature Gran % (Auto) 0.5 H Neut % (Auto) 79.0 H Lymph % (Auto) 14.0 L [place] % (Auto) 5.3 Eos % (Auto) 0.7 Baso % (Auto) 0.5 Lymph # (Auto) 1.5 [place] # (Auto) 0.6 Eos # (Auto) 0.1 Baso # (Auto) 0.1 Abs Immat Gran (auto) 0.05 H Absolute Neuts (auto) 8.6 H Absolute Nucleated RBC 0.000 Nucleated RBC % (auto) 0.0 ESR 44 H Hold Purple Top VBG pH 7.40 VBG pCO2 63 VBG pO2 41 VBG HCO3 39 H VBG O2 Saturation 66.0 VBG Base Excess 11.6 Anion Gap 14 Estim Creat Clear Calc 102.7 Estimated GFR > 60 Random Glucose 183 H Calcium 10.2 Total Bilirubin AST ALT Alkaline Phosphatase Troponin I High Sens 7.1 C-Reactive Protein 4.88 H B-Natriuretic Peptide 28 Total Protein Albumin Nasal Screen MRSA (PCR) NEGATIVE Nasal S. aureus Screen NEGATIVE Nasal MRSA/S.aureus Interp SEE NOTE Influenza Type A (PCR) NEGATIVE Influenza Type B (PCR) NEGATIVE RSV RNA Qual (PCR) NEGATIVE SARS-CoV-2 RNA (RT-PCR) NEGATIVE 02/14/24 05:29 MCV MCH MCHC RDW Plt Count MPV Immature Gran % (Auto) Neut % (Auto) Lymph % (Auto) [place] % (Auto) Eos % (Auto) Baso % (Auto) Lymph # (Auto) [place] # (Auto) Eos # (Auto) Baso # (Auto) Abs Immat Gran (auto) Absolute Neuts (auto) Absolute Nucleated RBC Nucleated RBC % (auto) ESR Hold Purple Top SEE NOTE VBG pH VBG pCO2 VBG pO2 VBG HCO3 VBG O2 Saturation VBG Base Excess Anion Gap 14 Estim Creat Clear Calc 107.8 Estimated GFR > 60 Random Glucose 155 H Calcium 9.3 D Total Bilirubin 0.8 AST 19 ALT 17 Alkaline Phosphatase 76 Troponin I High Sens C-Reactive Protein B-Natriuretic Peptide Total Protein 7.3 Albumin 3.6 Nasal Screen MRSA (PCR) Nasal S. aureus Screen Nasal MRSA/S.aureus Interp Influenza Type A (PCR) Influenza Type B (PCR) RSV RNA Qual (PCR) SARS-CoV-2 RNA (RT-PCR) Assessment and Plan (1) Acute atelectasis: Status: Acute (2) Hypoxemia: Status: Acute (3) Bilateral cellulitis of lower leg: Status: Acute (4) Chronic pain syndrome: Status: Acute Plan 68-year-old female with a PMH significant for?HLD, chronic lower leg edema, chronic pain syndrome, and mood disorder who presents to the ED from [facility] for evaluation of worsening bilateral lower leg pain and redness. Pt will be admitted to the hospital treatment and further evaluation of bilateral lower leg cellulitis that failed outpatient therapy and acute hypoxic respiratory failure likely secondary to obesity hypoventilation syndrome versus deconditioning. Bilateral lower leg cellulitis with no sepsis Unchanged since yesterday with persistent swelling, erythema, excoriations, and pain Failed outpatient antibiotic treatment with cephalexin 500 mg p.o. q.6 Continue iv Zosyn, started 02/13/2024, MRSA screen negative Follow blood cultures x2, will consult ID if noted to have no improvement. Question of underlying PAD vs chronic venous stasis Bilateral lower extremity arterial duplex study negative, likely lower extremity edema due to chronic venous stasis Acute hypoxic respiratory failure Pt desatting as low as 84% on RA Denies hx COPD or asthma but has 55+ pack year smoking hx, quit 7 months ago CXR and CTA of chest negative for acute pulmonary disease Likely secondary to obesity hypoventilation syndrome vs physical deconditioning Patient has history of obstructive sleep apnea not using CPAP due to intolerance Titrate supplemental O2 >92, wean as tolerated, encourage incentive spirometry Chronic lower extremity edema Likely due to venous stasis no evidence of acute CHF normal chest x-ray, normal BNP Continue Lasix 40 mg b.i.d., DC hydrochlorothiazide Mild acute hypokalemia will replete and follow labs Chronic pain syndrome Continue home analgesics tramadol HLD On Crestor 5 mg daily, converted to Lipitor 20 mg daily Mood disorder Continue home meds Obesity class III Weight loss encouraged DNR/DNI DVT Prophylaxis: Lovenox Pt will need continued inpatient hospitalization for treatment of?bilateral lower leg cellulitis. Given that patient has failed outpatient therapy for cellulitis, will require hospitalization for administration of IV antibiotics, as well as supplemental O2 for hypoxia. Quality Stroke Does the patient have a stroke diagnosis?: No VTE Prior VTE?: No VTE Risk Level:: Medical - moderate - high VTE Device Contraindication: Treatment Not Indicated VTE Drug Contraindication: N/A - Med Ordered
--- NOTE | 2024-02-14 11:26 | MHC.CM.PN ---
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
[2024-02-14 16:00] VITALS: BP 120/72; PULSE 90; RESP 22; TEMP 36.7; O2SAT 95
[2024-02-14] MEDS: Enoxaparin Sodium 40 MG/0.4 ML SYRINGE SUBCUT (17:38)
[2024-02-14 19:56] VITALS: BP 139/63; PULSE 72; RESP 18; TEMP 36.6; O2SAT 93
[2024-02-14] MEDS: traZODone HCL 100 MG TABLET PO (20:46)
[2024-02-14] MEDS: QUEtiapine Fumarate 50 MG TABLET PO (20:46)
[2024-02-14] MEDS: Sennosides 8.6 MG TABLET 17.2 MG PO (20:47)
[2024-02-15] MEDS: Piperacillin Sodium/Tazobactam 3.375 GM in 0.9 % Sodium Chloride 50 ML IV ×4 (01:08→17:40)
[2024-02-15 02:39] VITALS: BP 125/67; PULSE 78; RESP 18; TEMP 36; O2SAT 92
[2024-02-15] MEDS: traMADoL HCL 50 MG TABLET PO ×2 (02:52→12:12)
[2024-02-15 06:58] VITALS: BP 118/54; PULSE 93; RESP 17; TEMP 36.1; O2SAT 94
[2024-02-15] MEDS: 0.9 % Sodium Chloride Flush 3 ML SYRINGE IVFLUSH ×3 (08:48→20:47)
[2024-02-15] MEDS: Atorvastatin Calcium 20 MG TABLET PO (08:48)
[2024-02-15] MEDS: traMADoL HCL 50 MG TABLET 100 MG PO ×2 (08:48→20:45)
[2024-02-15] MEDS: Potassium Chloride ER 20 MEQ TAB.ER.PRT PO ×2 (08:48→20:46)
[2024-02-15] MEDS: TiZANidine HCL 4 MG TABLET 2 MG PO ×3 (08:49→20:46)
[2024-02-15] MEDS: Losartan Potassium 50 MG TABLET PO ×2 (08:49→20:47)
[2024-02-15] MEDS: Escitalopram Oxalate 5 MG TABLET PO (08:49)
[2024-02-15] MEDS: hydrOXYzine HCL 25 MG TABLET PO (08:50)
[2024-02-15] MEDS: Cholecalciferol (Vitamin D3) 25 MCG TABLET PO (08:50)
[2024-02-15] MEDS: Furosemide 40 MG TABLET PO ×2 (08:50→17:40)
[2024-02-15] MEDS: Nystatin Ointment 15 GM TUBE 1 APPL TOPICAL ×2 (08:53→20:57)
[2024-02-15] MEDS: Nystatin Powder 15 GM BOTTLE 1 APPL TOPICAL (08:54)
--- NOTE | 2024-02-15 10:01 | HO.PM.IMPN ---
Subjective Subjective Date of Service: 02/15/24 Interval History: Complaining of chronic back pain and leg discomfort and itching, no fevers, no chills, tolerating diet no nausea, no vomiting or abdominal pain, no diarrhea, no shortness of breath, no chest pain. No acute events overnight. Review of Systems All other system reviewed and negative Physical Exam Vital Signs: Vital Signs: Last Vital Signs Temp 97 F 02/15/24 06:58 Pulse 93 02/15/24 06:58 Resp 17 02/15/24 06:58 BP 118/54 L 02/15/24 06:58 Pulse Ox 94 02/15/24 06:58 O2 Del Method Nasal Cannula 02/15/24 06:58 O2 Flow Rate 2 02/15/24 06:58 BMI result Body Mass Index 46.7 Const: Other: General awake alert x3, resting comfortably in no acute distress. Neck supple no JVD. CVS regular rate rhythm, Respiratory lungs clear to auscultation, no respiratory distress, no wheeze, no rhonchi. Gastrointestinal abdomen soft, non tender, bowel sounds audible, no guarding , no rigidity. Extremities bilateral pitting edema. Neuro non focal Skin redness and swelling improving since admission, persistent scabs both feet, no open sores or drainage. Psych appropriate affect Objective Data Active Medications Acetaminophen (Acetaminophen 325 Mg Tablet) 650 mg PO Q6H PRN PRN Reason: Pain, Mild (Pain Scale 1-3) Last Admin: 02/14/24 06:15 Dose: 650 mg Documented By: HOLLEY Al Hydroxide/Mg Hydroxide (Magnesium Hydrox/Alum Hydrox 30 Ml Oral.Susp) 15 ml PO Q6H PRN PRN Reason: Heartburn Last Admin: 02/14/24 05:36 Dose: 15 ml Documented By: HOLLEY Atorvastatin Calcium (Atorvastatin Calcium 20 Mg Tablet) 20 mg PO DAILY [facility] Last Admin: 02/15/24 08:48 Dose: 20 mg Documented By: NITZA Calamine (Calamine/Zinc Oxide Lotion 177 Ml Bottle) 1 appl TOPICAL BID [facility]; Protocol Docusate Sodium (Docusate Sodium 100 Mg Capsule) 100 mg PO BID [facility] Last Admin: 02/15/24 08:53 Dose: Not Given Documented By: NITZA Non-Admin Reason: loose stool yesterday Enoxaparin Sodium (Enoxaparin Sodium 40 Mg/0.4 Ml Syringe) 40 mg SUBCUT Q24H [facility] Last Admin: 02/14/24 17:38 Dose: 40 mg Documented By: NITZA Escitalopram Oxalate (Escitalopram Oxalate 5 Mg Tablet) 5 mg PO DAILY [facility] Last Admin: 02/15/24 08:49 Dose: 5 mg Documented By: NITZA Furosemide (Furosemide 40 Mg Tablet) 40 mg PO BID@0900,1800 [facility]; Protocol Last Admin: 02/15/24 08:50 Dose: 40 mg Documented By: NITZA Guaifenesin (Guaifenesin 100 Mg/5 Ml Liquid) 10 ml PO Q4H PRN PRN Reason: Cough Hydrocortisone (Hydrocortisone 1 % Cream 28.35 Gm Tube) 1 appl TOPICAL TID PRN; Protocol PRN Reason: Hemorrhoids Hydroxyzine HCl (Hydroxyzine Hcl 25 Mg Tablet) 25 mg PO TID PRN PRN Reason: Itching Last Admin: 02/15/24 08:50 Dose: 25 mg Documented By: NITZA Piperacillin Sod/Tazobactam (Sod 3.375 gm/ Sodium Chloride) 50 mls @ 100 mls/hr IV Q6H [facility] Last Infusion: 02/15/24 06:05 Dose: Infused Documented By: HOLLEY Lidocaine (Lidocaine 4 % Patch Adh..Patch) 1 patch TRANSDERMA DAILY PRN; Protocol PRN Reason: Pain, Mild (Pain Scale 1-3) Losartan Potassium (Losartan Potassium 50 Mg Tablet) 50 mg PO BID [facility]; Protocol Last Admin: 02/15/24 08:49 Dose: 50 mg Documented By: NITZA Melatonin (Melatonin 3 Mg Tablet) 6 mg PO BEDTIME PRN PRN Reason: Insomnia Nystatin (Nystatin Powder 15 Gm Bottle) 1 appl TOPICAL BID [facility]; Protocol Last Admin: 02/15/24 08:54 Dose: 1 appl Documented By: NITZA Nystatin (Nystatin Ointment 15 Gm Tube) 1 appl TOPICAL BID [facility]; Protocol Last Admin: 02/15/24 08:53 Dose: 1 appl Documented By: NITZA Ondansetron HCl (Ondansetron Hcl 4 Mg/2 Ml Vial) 4 mg IVPUSH Q8H PRN PRN Reason: Nausea and Vomiting Potassium Chloride (Potassium Chloride Er 20 Meq Tab.Er.Prt) 20 meq PO BID [facility] Last Admin: 02/15/24 08:48 Dose: 20 meq Documented By: NITZA Quetiapine Fumarate (Quetiapine Fumarate 50 Mg Tablet) 50 mg PO BEDTIME [facility] Last Admin: 02/14/24 20:46 Dose: 50 mg Documented By: HOLLEY Senna (Sennosides 8.6 Mg Tablet) 17.2 mg PO BEDTIME [facility] Last Admin: 02/14/24 20:47 Dose: 17.2 mg Documented By: HOLLEY Simethicone (Simethicone 80 Mg Tab.Chew) 80 mg PO Q6H PRN PRN Reason: gas Sodium Chloride (0.9 % Sodium Chloride Flush 3 Ml Syringe) 3 ml IVFLUSH QSHIFT [facility] Last Admin: 02/15/24 08:48 Dose: 3 ml Documented By: NITZA Tizanidine HCl (Tizanidine Hcl 4 Mg Tablet) 2 mg PO TID [facility] Last Admin: 02/15/24 08:49 Dose: 2 mg Documented By: NITZA Tramadol HCl (Tramadol Hcl 50 Mg Tablet) 50 mg PO Q4H PRN PRN Reason: Pain, Moderate(Pain Scale 4-6) Last Admin: 02/15/24 02:52 Dose: 50 mg Documented By: HOLLEY Tramadol HCl (Tramadol Hcl 50 Mg Tablet) 100 mg PO BID [facility] Last Admin: 02/15/24 08:48 Dose: 100 mg Documented By: NITZA Trazodone HCl (Trazodone Hcl 100 Mg Tablet) 100 mg PO BEDTIME [facility] Last Admin: 02/14/24 20:46 Dose: 100 mg Documented By: HOLLEY Vitamin D (Cholecalciferol (Vitamin D3) 25 Mcg Tablet) 25 mcg PO DAILY [facility] Last Admin: 02/15/24 08:50 Dose: 25 mcg Documented By: NITZA Labs 02/13/24 13:10 02/14/24 05:29 Labs: Laboratory Results - last 24 hr 02/13/24 18:06 Nasal Screen MRSA (PCR) NEGATIVE Nasal S. aureus Screen NEGATIVE Nasal MRSA/S.aureus Interp SEE NOTE Microbiology Microbiology Results: Microbiology 02/13/24 18:53 Blood Culture - Preliminary Blood - Venous No growth after 24 hours. 02/13/24 18:53 Blood Culture - Preliminary Blood - Venous No growth after 24 hours. Assessment and Plan (1) Acute atelectasis: Status: Acute (2) Hypoxemia: Status: Acute (3) Bilateral cellulitis of lower leg: Status: Acute (4) Chronic pain syndrome: Status: Acute Plan 68-year-old female with a PMH significant for?HLD, chronic lower leg edema, chronic pain syndrome, and mood disorder who presents to the ED from [facility] for evaluation of worsening bilateral lower leg pain and redness. Pt will be admitted to the hospital treatment and further evaluation of bilateral lower leg cellulitis that failed outpatient therapy and acute hypoxic respiratory failure likely secondary to obesity hypoventilation syndrome versus deconditioning. Bilateral lower leg cellulitis with no sepsis Redness and swelling improving. Failed outpatient antibiotic treatment with cephalexin 500 mg p.o. q.6 Continue iv Zosyn, started 02/13/2024, MRSA screen negative blood cultures x2 negative, keep legs elevated Apply calamine to dry scabs PT consult for out of bed to chair and ambulation, Question of underlying PAD vs chronic venous stasis Bilateral lower extremity arterial duplex study negative, likely lower extremity edema due to chronic venous stasis Acute hypoxic respiratory failure Pt desatting as low as 84% on RA Denies hx COPD or asthma but has 55+ pack year smoking hx, quit 7 months ago CXR and CTA of chest negative for acute pulmonary disease Likely secondary to obesity hypoventilation syndrome and physical deconditioning Patient has history of obstructive sleep apnea not using CPAP due to intolerance Titrate supplemental O2 >92, wean as tolerated, encourage incentive spirometry, will obtain overnight oximetry Chronic lower extremity edema Likely due to venous stasis no evidence of acute CHF normal chest x-ray, normal BNP Continue Lasix 40 mg b.i.d., DC hydrochlorothiazide Edema improving Mild acute hypokalemia , repleted follow labs Chronic pain syndrome Continue home analgesics tramadol. HLD On Crestor 5 mg daily, converted to Lipitor 20 mg daily Mood disorder Continue home meds Obesity class III Weight loss encouraged DNR/DNI DVT Prophylaxis: Lovenox Disposition back to rehab facility once medically stable Pt will need continued inpatient hospitalization for treatment of?bilateral lower leg cellulitis. Given that patient has failed outpatient therapy for cellulitis, will require hospitalization for administration of IV antibiotics, as well as supplemental O2 for hypoxia. Quality Stroke Does the patient have a stroke diagnosis?: No VTE Prior VTE?: No VTE Risk Level:: Medical - moderate - high VTE Device Contraindication: Treatment Not Indicated VTE Drug Contraindication: N/A - Med Ordered
[2024-02-15 11:12] LABS: Blood Urea Nitrogen 18 mg/dL (9-16); Calcium 8.8 mg/dL (8.4-10.2); Creatinine Clr Calc Pharmacy 102.9; Estimated Glomerular Filt Rate > 60; Glucose Random 181 mg/dL (60-115)
[2024-02-15 11:13] LABS: Hematocrit 40.4 % (37.0-47.0); Hemoglobin 12.9 g/dl (12.0-16.0); Mean Corpuscular HGB Conc 31.9 g/dl (31.0-35.0); Mean Corpuscular Hemoglobin 31.9 pg (27.0-33.0); Mean Platelet Volume 9.5 fL (9.4-12.3); Platelet Count 167 X10*3/uL (160-400); Red Blood Count 4.04 X10*6/uL (4.20-5.50); White Blood Count 9.1 X10*3/uL (4.8-10.8)
[2024-02-15 11:25] LABS: Anion Gap 18 (12-20); Carbon Dioxide 31 mmol/L (22-29); Chloride 94 mmol/L (96-108); Potassium 4.2 mmol/L (3.3-5.1); Sodium 139 mmol/L (135-145)
[2024-02-15] MEDS: Calamine/Zinc Oxide LOTION 177 ML BOTTLE 1 APPL TOPICAL ×2 (12:12→20:56)
[2024-02-15] MEDS: Acetaminophen 325 MG TABLET 650 MG PO (15:05)
[2024-02-15 15:36] VITALS: BP 117/57; PULSE 83; RESP 20; TEMP 36.5; O2SAT 94
[2024-02-15] MEDS: Enoxaparin Sodium 40 MG/0.4 ML SYRINGE SUBCUT (17:40)
[2024-02-15 19:21] VITALS: BP 110/54; PULSE 92; RESP 20; TEMP 36.3; O2SAT 95
[2024-02-15] MEDS: traZODone HCL 100 MG TABLET PO (20:46)
[2024-02-15] MEDS: QUEtiapine Fumarate 50 MG TABLET PO (20:47)
[2024-02-15] MEDS: Hydrocortisone 1 % Cream 28.35 GM TUBE 1 APPL TOPICAL (20:56)
[2024-02-16] MEDS: Piperacillin Sodium/Tazobactam 3.375 GM in 0.9 % Sodium Chloride 50 ML IV ×5 (00:04→22:49)
[2024-02-16] MEDS: traMADoL HCL 50 MG TABLET PO ×4 (02:06→23:31)
[2024-02-16 03:17] VITALS: BP 108/54; PULSE 73; RESP 20; TEMP 36.1; O2SAT 92
[2024-02-16 07:04] VITALS: BP 111/52; PULSE 80; RESP 17; TEMP 36.6; O2SAT 92
[2024-02-16] MEDS: Atorvastatin Calcium 20 MG TABLET PO (09:03)
[2024-02-16] MEDS: 0.9 % Sodium Chloride Flush 3 ML SYRINGE IVFLUSH ×3 (09:03→20:35)
[2024-02-16] MEDS: Losartan Potassium 50 MG TABLET PO ×2 (09:04→20:29)
[2024-02-16] MEDS: Escitalopram Oxalate 5 MG TABLET PO (09:04)
[2024-02-16] MEDS: Furosemide 40 MG TABLET PO (09:04)
[2024-02-16] MEDS: Potassium Chloride ER 20 MEQ TAB.ER.PRT PO ×2 (09:04→20:27)
[2024-02-16] MEDS: Cholecalciferol (Vitamin D3) 25 MCG TABLET PO (09:04)
[2024-02-16] MEDS: traMADoL HCL 50 MG TABLET 100 MG PO ×2 (09:05→20:28)
[2024-02-16] MEDS: Nystatin Ointment 15 GM TUBE 1 APPL TOPICAL (09:05)
[2024-02-16] MEDS: TiZANidine HCL 4 MG TABLET 2 MG PO ×3 (09:05→20:30)
[2024-02-16] MEDS: Calamine/Zinc Oxide LOTION 177 ML BOTTLE 1 APPL TOPICAL ×2 (09:16→20:38)
[2024-02-16] MEDS: Nystatin Powder 15 GM BOTTLE 1 APPL TOPICAL ×2 (09:16→20:38)
[2024-02-16] MEDS: hydrOXYzine HCL 25 MG TABLET PO ×2 (09:16→20:30)
--- NOTE | 2024-02-16 09:51 | HO.VASCPN ---
Subjective Subjective Date of Service: 02/16/24 Patient reports: no new complaints and feels better Interval history: Complex 68-year-old female with a history of chronic pain syndrome and mood disorder presented to the hospital with worsening lower extremity pain and swelling. She had been seen short-term rehab for the past 5 months due to a lower vertebral compression fracture. She has had increasing discomfort of the lower extremities. She has a fair amount of itching of the lower extremities and has been scratching this quite a bit. She presented to the emergency room for treatment and evaluation. Now for follow-up. Physical Exam Vital Signs: Vital Signs: Last Vital Signs Temp 97.8 F 02/16/24 07:04 Pulse 80 02/16/24 07:04 Resp 17 02/16/24 07:04 BP 111/52 L 02/16/24 07:04 Pulse Ox 92 02/16/24 07:04 O2 Del Method Nasal Cannula 02/16/24 07:04 O2 Flow Rate 2 02/16/24 07:04 BMI result Body Mass Index 46.7 Const: General: cooperative, healthy appearing and comfortable Orientation/consciousness: oriented to person, oriented to place and oriented to time HEENT: Head: Yes normal to inspection Neck: Neck: Yes normal visual inspection Carotids: no bruits Chest: Chest palpation & inspection: normal inspection of the chest Resp: Effort & Inspection: normal respiratory effort and able to speak in complete sentences Auscultation: clear to auscultation bilaterally, no crackles, no rales, no rhonchi and no wheezes Cardio: Other: Palpable DP bilaterally Rate: regular rate Rhythm: regular rhythm Heart sounds: S1 normal heart sound present and S2 normal heart sound present Bruits: no carotid bruits Peripheral pulses: Peripheral pulses 2+ throughout GI: Inspection: Yes normal to inspection Skin: Other: Multiple excoriated areas in the pretibial surface all covered with calamine lotion Wounds: no wounds Hair: normal Neuro: General: oriented to person, oriented to place and oriented to time Cranial nerves: Yes CN's II-XII intact bilaterally and Yes Normal hearing present Cognition (Neuro): normal cognition Motor exam (neuro): 5/5 motor strength present throughout Extrem: Other: venous exam: +2 pitting edema General: No clubbing, No cyanosis and Yes edema Psych: Appearance: grossly normal Mental Status: mental status grossly normal Speech and movement: Normal speech and movement present Progress Note: A&P Assessment and plan (1) Bilateral leg ulcer: Status: Acute Assessment and Plan: In short patient has nonhealing bilateral lower extremity ulcers. I did have an opportunity to review the patient's noninvasive arterial testing. Will plan for outpatient evaluation in regards to venous insufficiency and further treatment for her swelling. I do agree with the current management of calamine lotion. She will follow up with us as an outpatient. Thank you for allowing us to assist in her care. If there are any questions or concerns please do not hesitate to contact us. Time Spent With Patient Time: Total time managing care of this patient today ____ minutes. Procedures Date of Service Date of Service: 02/16/24 Quality Stroke Does the patient have a stroke diagnosis?: No VTE Prior VTE?: No VTE Risk Level:: Medical - moderate - high VTE Device Contraindication: Treatment Not Indicated VTE Drug Contraindication: N/A - Med Ordered
--- NOTE | 2024-02-16 09:58 | HO.PM.IMPN ---
Subjective Subjective Date of Service: 02/16/24 Interval History: Feeling better denies nausea, no vomiting, no further episodes of choking, had watery stool this morning, no associated abdominal discomfort, no fevers, no chills, lower extremity redness and swelling is improving, no acute events overnight. Review of Systems All other system reviewed and are negative. Physical Exam Vital Signs: Vital Signs: Last Vital Signs Temp 97.8 F 02/16/24 07:04 Pulse 80 02/16/24 07:04 Resp 17 02/16/24 07:04 BP 111/52 L 02/16/24 07:04 Pulse Ox 92 02/16/24 07:04 O2 Del Method Nasal Cannula 02/16/24 07:04 O2 Flow Rate 2 02/16/24 07:04 BMI result Body Mass Index 46.7 Const: Other: General awake alert x3, resting comfortably in no acute distress. Neck supple no JVD. CVS regular rate rhythm, Respiratory lungs clear to auscultation, no respiratory distress, no wheeze, no rhonchi. Gastrointestinal abdomen soft, non tender, bowel sounds audible, no guarding , no rigidity. Extremities bilateral pitting edema improving. Neuro non focal Skin redness and swelling significantly improved since admission, no open sores or drainage. Psych appropriate affect Objective Data Active Medications Acetaminophen (Acetaminophen 325 Mg Tablet) 650 mg PO Q6H PRN PRN Reason: Pain, Mild (Pain Scale 1-3) Last Admin: 02/15/24 15:05 Dose: 650 mg Documented By: NITZA Al Hydroxide/Mg Hydroxide (Magnesium Hydrox/Alum Hydrox 30 Ml Oral.Susp) 15 ml PO Q6H PRN PRN Reason: Heartburn Last Admin: 02/14/24 05:36 Dose: 15 ml Documented By: HOLLEY Atorvastatin Calcium (Atorvastatin Calcium 20 Mg Tablet) 20 mg PO DAILY [facility] Last Admin: 02/16/24 09:03 Dose: 20 mg Documented By: NITZA Calamine (Calamine/Zinc Oxide Lotion 177 Ml Bottle) 1 appl TOPICAL BID [facility]; Protocol Last Admin: 02/16/24 09:16 Dose: 1 appl Documented By: NITZA Docusate Sodium (Docusate Sodium 100 Mg Capsule) 100 mg PO BID [facility] Last Admin: 02/16/24 09:18 Dose: Not Given Documented By: NITZA Non-Admin Reason: loose stool Enoxaparin Sodium (Enoxaparin Sodium 40 Mg/0.4 Ml Syringe) 40 mg SUBCUT Q24H [facility] Last Admin: 02/15/24 17:40 Dose: 40 mg Documented By: NTIZA Escitalopram Oxalate (Escitalopram Oxalate 5 Mg Tablet) 5 mg PO DAILY [facility] Last Admin: 02/16/24 09:04 Dose: 5 mg Documented By: NITZA Furosemide (Furosemide 40 Mg Tablet) 40 mg PO BID@0900,1800 [facility]; Protocol Last Admin: 02/16/24 09:04 Dose: 40 mg Documented By: NITZA Guaifenesin (Guaifenesin 100 Mg/5 Ml Liquid) 10 ml PO Q4H PRN PRN Reason: Cough Hydrocortisone (Hydrocortisone 1 % Cream 28.35 Gm Tube) 1 appl TOPICAL TID PRN; Protocol PRN Reason: Hemorrhoids Last Admin: 02/15/24 20:56 Dose: 1 appl Documented By: HOLLEY Hydroxyzine HCl (Hydroxyzine Hcl 25 Mg Tablet) 25 mg PO TID PRN PRN Reason: Itching Last Admin: 02/16/24 09:16 Dose: 25 mg Documented By: NITZA Piperacillin Sod/Tazobactam (Sod 3.375 gm/ Sodium Chloride) 50 mls @ 100 mls/hr IV Q6H [facility] Last Infusion: 02/16/24 06:26 Dose: Infused Documented By: HOLLEY Lidocaine (Lidocaine 4 % Patch Adh..Patch) 1 patch TRANSDERMA DAILY [facility]; Protocol PRN Reason: Pain, Mild (Pain Scale 1-3) Losartan Potassium (Losartan Potassium 50 Mg Tablet) 50 mg PO BID [facility]; Protocol Last Admin: 02/16/24 09:04 Dose: 50 mg Documented By: NITZA Melatonin (Melatonin 3 Mg Tablet) 6 mg PO BEDTIME PRN PRN Reason: Insomnia Nystatin (Nystatin Powder 15 Gm Bottle) 1 appl TOPICAL BID [facility]; Protocol Last Admin: 02/16/24 09:16 Dose: 1 appl Documented By: NITZA Nystatin (Nystatin Ointment 15 Gm Tube) 1 appl TOPICAL BID [facility]; Protocol Last Admin: 02/16/24 09:05 Dose: 1 appl Documented By: NITZA Ondansetron HCl (Ondansetron Hcl 4 Mg/2 Ml Vial) 4 mg IVPUSH Q8H PRN PRN Reason: Nausea and Vomiting Potassium Chloride (Potassium Chloride Er 20 Meq Tab.Er.Prt) 20 meq PO BID [facility] Last Admin: 02/16/24 09:04 Dose: 20 meq Documented By: NITZA Quetiapine Fumarate (Quetiapine Fumarate 50 Mg Tablet) 50 mg PO BEDTIME [facility] Last Admin: 02/15/24 20:47 Dose: 50 mg Documented By: HOLLEY Senna (Sennosides 8.6 Mg Tablet) 17.2 mg PO BEDTIME [facility] Last Admin: 02/15/24 20:55 Dose: Not Given Documented By: HOLLEY Non-Admin Reason: Patient Refused Simethicone (Simethicone 80 Mg Tab.Chew) 80 mg PO Q6H PRN PRN Reason: gas Sodium Chloride (0.9 % Sodium Chloride Flush 3 Ml Syringe) 3 ml IVFLUSH QSHIFT [facility] Last Admin: 02/16/24 09:03 Dose: 3 ml Documented By: NITZA Tizanidine HCl (Tizanidine Hcl 4 Mg Tablet) 2 mg PO TID [facility] Last Admin: 02/16/24 09:05 Dose: 2 mg Documented By: INTZA Tramadol HCl (Tramadol Hcl 50 Mg Tablet) 50 mg PO Q4H PRN PRN Reason: Pain, Moderate(Pain Scale 4-6) Last Admin: 02/16/24 02:06 Dose: 50 mg Documented By: HOLLEY Tramadol HCl (Tramadol Hcl 50 Mg Tablet) 100 mg PO BID [facility] Last Admin: 02/16/24 09:05 Dose: 100 mg Documented By: NITZA Trazodone HCl (Trazodone Hcl 100 Mg Tablet) 100 mg PO BEDTIME [facility] Last Admin: 02/15/24 20:46 Dose: 100 mg Documented By: HOLLEY Vitamin D (Cholecalciferol (Vitamin D3) 25 Mcg Tablet) 25 mcg PO DAILY [facility] Last Admin: 02/16/24 09:04 Dose: 25 mcg Documented By: NITZA Labs 02/15/24 10:59 02/15/24 10:32 Labs: Laboratory Results - last 24 hr 02/15/24 02/15/24 10:32 10:59 MCV 100.0 H MCH 31.9 MCHC 31.9 RDW 13.0 Plt Count 167 MPV 9.5 Absolute Nucleated RBC 0.000 Nucleated RBC % (auto) 0.0 Anion Gap 18 Estim Creat Clear Calc 102.9 Estimated GFR > 60 Random Glucose 181 H Calcium 8.8 Microbiology Microbiology Results: Microbiology 02/13/24 18:53 Blood Culture - Preliminary Blood - Venous No growth after 48 hours. 02/13/24 18:53 Blood Culture - Preliminary Blood - Venous No growth after 48 hours. Assessment and Plan (1) Acute atelectasis: Status: Acute (2) Hypoxemia: Status: Acute (3) Bilateral cellulitis of lower leg: Status: Acute (4) Chronic pain syndrome: Status: Acute Plan 68-year-old female with a PMH significant for?HLD, chronic lower leg edema, chronic pain syndrome, and mood disorder who presents to the ED from [facility] for evaluation of worsening bilateral lower leg pain and redness. Pt will be admitted to the hospital treatment and further evaluation of bilateral lower leg cellulitis that failed outpatient therapy and acute hypoxic respiratory failure likely secondary to obesity hypoventilation syndrome versus deconditioning. Bilateral lower leg cellulitis with no sepsis Redness and swelling significantly improved Failed outpatient antibiotic treatment with cephalexin 500 mg p.o. q.6 Continue iv Zosyn, started 02/13/2024,D3, MRSA screen negative, will transition to by mouth Augmentin upon discharge blood cultures x2 negative, keep legs elevated Apply calamine to dry scabs Await PT consult for out of bed to chair and ambulation, Acute diarrhea likely due to antibiotics will check stool for C diff. Question of underlying PAD vs chronic venous stasis Bilateral lower extremity arterial duplex study negative, likely lower extremity edema due to chronic venous stasis Acute hypoxic respiratory failure Pt desatting as low as 84% on RA Denies hx COPD or asthma but has 55+ pack year smoking hx, quit 7 months ago CXR and CTA of chest negative for acute pulmonary disease Likely secondary to obesity hypoventilation syndrome and physical deconditioning Patient has history of obstructive sleep apnea not using CPAP due to intolerance Titrate supplemental O2 >92, wean as tolerated, encourage incentive spirometry, will obtain overnight oximetry Chronic lower extremity edema Likely due to venous stasis no evidence of acute CHF normal chest x-ray, normal BNP Continue Lasix 40 mg b.i.d., DC hydrochlorothiazide Edema improving Mild acute hypokalemia , repleted follow labs Chronic pain syndrome Continue home analgesics tramadol. HLD On Crestor 5 mg daily, converted to Lipitor 20 mg daily Mood disorder Continue home meds Obesity class III Weight loss encouraged DNR/DNI DVT Prophylaxis: Lovenox Disposition back to rehab facility once medically stable Pt will need continued inpatient hospitalization for treatment of?bilateral lower leg cellulitis. Given that patient has failed outpatient therapy for cellulitis, will require hospitalization for administration of IV antibiotics, as well as supplemental O2 for hypoxia and further testing for hypoxia. Quality Stroke Does the patient have a stroke diagnosis?: No VTE Prior VTE?: No VTE Risk Level:: Medical - moderate - high VTE Device Contraindication: Treatment Not Indicated VTE Drug Contraindication: N/A - Med Ordered
--- NOTE | 2024-02-16 10:23 | MHC.CM.PN ---
PT NOT YET MEDICALLY CLEARED. DCP: RETURN TO [facility]. UPDATES SENT TO SNF VIA [facility].
[2024-02-16] MEDS: Acetaminophen 325 MG TABLET 650 MG PO ×2 (11:39→18:20)
[2024-02-16 15:27] VITALS: BP 108/58; PULSE 76; RESP 24; TEMP 36.7; O2SAT 94
[2024-02-16] MEDS: Enoxaparin Sodium 40 MG/0.4 ML SYRINGE SUBCUT (18:20)
[2024-02-16 20:00] VITALS: BP 120/56; PULSE 81; RESP 17; TEMP 36.1; O2SAT 93
[2024-02-16] MEDS: traZODone HCL 100 MG TABLET PO (20:26)
[2024-02-16] MEDS: QUEtiapine Fumarate 50 MG TABLET PO (20:31)
[2024-02-17 03:31] VITALS: BP 133/63; PULSE 81; RESP 19; TEMP 36.1; O2SAT 93
[2024-02-17] MEDS: traMADoL HCL 50 MG TABLET PO ×2 (03:40→11:42)
[2024-02-17] MEDS: hydrOXYzine HCL 25 MG TABLET PO (05:04)
[2024-02-17] MEDS: Piperacillin Sodium/Tazobactam 3.375 GM in 0.9 % Sodium Chloride 50 ML IV ×2 (05:08→11:43)
[2024-02-17 05:09] VITALS: O2SAT 89
[2024-02-17 05:21] LABS: ABG Base Excess 11.7 mmol/L; ABG HCO3 36 mmol/L (22-26); ABG pCO2 49 mmHg (32-45); ABG pH 7.48 (7.35-7.45); ABG pO2 63 mmHg (83-108)
[2024-02-17 05:23] LABS: ABG Refer to POC result
--- NOTE | 2024-02-17 06:11 | PC.RT ---
overnight SaO2 started on RA, SaO2 low (85-90) while still awake. 23:25 placed on 1L with SaO2 90%, at 4:00 placed back on RA with ABGs drawn on RA
[2024-02-17 07:49] VITALS: BP 144/65; PULSE 93; RESP 18; TEMP 36.8; O2SAT 94
[2024-02-17] MEDS: Losartan Potassium 50 MG TABLET PO (07:49)
[2024-02-17] MEDS: Atorvastatin Calcium 20 MG TABLET PO (07:49)
[2024-02-17] MEDS: TiZANidine HCL 4 MG TABLET 2 MG PO (07:50)
[2024-02-17] MEDS: Cholecalciferol (Vitamin D3) 25 MCG TABLET PO (07:50)
[2024-02-17] MEDS: traMADoL HCL 50 MG TABLET 100 MG PO (07:50)
[2024-02-17] MEDS: Escitalopram Oxalate 5 MG TABLET PO (07:51)
[2024-02-17] MEDS: Calamine/Zinc Oxide LOTION 177 ML BOTTLE 1 APPL TOPICAL (07:51)
[2024-02-17] MEDS: Furosemide 40 MG TABLET PO (07:51)
[2024-02-17] MEDS: Nystatin Powder 15 GM BOTTLE 1 APPL TOPICAL (07:52)
[2024-02-17] MEDS: 0.9 % Sodium Chloride Flush 3 ML SYRINGE IVFLUSH (07:56)
[2024-02-17] MEDS: Nystatin Ointment 15 GM TUBE 1 APPL TOPICAL (08:49)
--- NOTE | 2024-02-17 10:41 | MHC.CM.PN ---
pt is returning to [facility] today at 1 via [facility] auth receievd from [facility]
--- NOTE | 2024-02-17 10:45 | P.DS_ITS ---
DS: Providers Provider Date of Service: 02/17/24 Date of admission: 02/13/24 17:33 Primary care physician: Ivana Henry MD Consults: 02/13/24 17:17 Consult to Vascular Surgery Routine Consulting Provider: [facility] Reason for consultation: PAD vs venous stasis DS: Diagnosis Discharge Diagnosis (1) Acute atelectasis: Status: Acute (2) Hypoxemia: Status: Acute (3) Bilateral cellulitis of lower leg: Status: Acute (4) Chronic pain syndrome: Status: Acute DS: Summary Hospital Course Hospital Course: History of presenting illness: Date of Service: 02/13/24 Attending physician on admission: Maureen Gordon Chief Complaint: Worsening leg pain Pt is a 68-year-old female with a PMH significant for?HLD, chronic lower leg edema, chronic pain syndrome, and mood disorder who presents to the ED from [facility] for evaluation of worsening bilateral lower leg pain and redness. Pt has been at [facility] for past 5 months due to lower vertebral compression fracture. Sates has been having increased lower leg pain with standing or walking for the past two weeks. Was not elevating her legs at [facility] and found that water was weeping out of her legs. One week ago noticed sores started appearing on lower legs along with spreading erythema was started on cephalexin 500 mg q.6. Today patient found she could barely walk with a walker secondary to pain and weakness. Reports legs do not itch and then she has not been scratching or touching them. Denies fever, chills, nausea, vomiting. No abdominal pain. Denies chest pain/pressure, palpitations. No shortness of breath or increased cough. States does not carry a diagnosis of asthma or COPD in his not on home O2, but notes has smoked on average a pack a day since she was 9 years old. Quit smoking 7 months ago. In the ED pt was Labs were significant for WBC 10.9, chloride 92, bicarb 35, C- reactive protein 3.88 and CRP 44. Tested negative for influenza type a and B, RSV, and COVID. CXR showed low lung volumes with no evidence of acute disease in the chest. CTA of chest found no evidence of pulmonary embolism or pneumonia, but found minimal dependent atelectasis at lung bases. EKG demonstrated sinus rhythm with marked sinus arrhythmia but no evidence of ST elevations or depressions. Pt was treated with acetaminophen and clindamycin 600 mg p.o. Pt will be admitted to the hospital treatment and further evaluation of bilateral lower leg cellulitis that failed outpatient therapy and acute hypoxic respiratory failure likely secondary to obesity hypoventilation syndrome versus deconditioning. Hospital course: 68-year-old female with a PMH significant for?HLD, chronic lower leg edema, chronic pain syndrome, and mood disorder who presents to the ED from [facility] for evaluation of worsening bilateral lower leg pain and redness. Pt will be admitted to the hospital treatment and further evaluation of bilateral lower leg cellulitis that failed outpatient therapy and acute hypoxic respiratory failure likely secondary to obesity hypoventilation syndrome versus deconditioning. Admitted with Bilateral lower leg cellulitis with no sepsis and multiple dry scabs, patient treated with IV Zosyn, MRSA screen was negative blood cultures x2 showed no growth, patient feeling significantly better with significant improvement in lower extremity swelling and redness continued to use calamine lotion as needed for itching, is being discharged on doxycycline 100 mg twice daily recommend to keep leg elevated, lower extremity edema likely due to venous insufficiency, arterial ultrasound lower extremity was negative, no evidence of acute CHF noted, patient has normal, albumin, normal LFTs and cough, normal renal function, normal chest x-ray, normal BNP recommend to continue Lasix 60 mg daily at home, hydrochlorothiazide discontinued, once cellulitis is resolved patient can use Ruel stockings, patient had brief episode of diarrhea now resolved. Acute hypoxic respiratory failure noted to have finger oximetry 84% on room air, chest x-ray and CTA chest showed no acute pulmonary disease likely secondary to obesity hypoventilation syndrome patient does provide history of obstructive sleep apnea not using CPAP due to intolerance, overnight finger oximetry was done and patient qualifies for 2 L of oxygen at nighttime. Mild acute hypokalemia , likely due to diuretics repleted and normalized. Chronic pain syndrome Continue home analgesics tramadol. HLD On Crestor 5 mg daily Mood disorder Continue home meds Obesity class III Weight loss encouraged, recommend to follow low-calorie diet. Time Attestation Discharge Coordination Time (in mins): 40 Quality: Safe Use of Opioids Does Pt have an Active Cancer Diagnosis on the Problem List?: No Quality: Stroke Does the patient have a stroke diagnosis?: No Physical Exam Vital Signs: Vital Signs: Last Vital Signs Temp 98.2 F 02/17/24 07:49 Pulse 93 02/17/24 07:49 Resp 18 04/16/24 07:49 BP 144/65 H 02/17/24 07:49 Pulse Ox 94 02/17/24 07:49 O2 Del Method Nasal Cannula 02/17/24 07:49 O2 Flow Rate 2 02/17/24 07:49 BMI result Body Mass Index 46.7 Const: Other: General awake alert x3, resting comfortably in no acute distress. Neck supple no JVD. CVS regular rate rhythm, Respiratory lungs clear to auscultation, no respiratory distress, no wheeze, no rhonchi. Gastrointestinal abdomen soft, non tender, bowel sounds audible, no guarding , no rigidity. Extremities bilateral pitting edema significantly improved. Neuro non focal Skin redness and swelling significantly improved since admission, no open sores or drainage. Moist groin rash L >RT Psych appropriate affect DS: Data Data Completed and Pending Labs on day of discharge: Laboratory Results - last 24 hr 02/17/24 05:12 O2 Saturation 92.0 ABG pH at Pt Temp 7.48 H ABG pCO2 at Pt Temp 49 H ABG pO2 at Pt Temp 63 L ABG HCO3 36 H ABG Base Excess (Actual) 11.7 Preliminary micro results at discharge 02/13/24 18:53 Blood Culture - Preliminary Blood - Venous No growth after 48 hours. 02/13/24 18:53 Blood Culture - Preliminary Blood - Venous No growth after 48 hours. Discharge Plan Discharge Anticipated Discharge Date/Time: 02/17/24 10:28 Patient Disposition: Xfer [facility] Discharge Diagnosis: Acute bilateral lower leg cellulitis Acute hypoxic respiratory failure Chronic lower extremity edema likely due to venous stasis Referrals: [facility], [facility] [Other] - 1 Week Ivana Henry MD [Primary Care Provider] - 1 Week Discharge Medications: New nystatin 100,000 unit/gram Powder 1 appl topical BID Qty: 30 0RF Protocol: Apply to: Apply to: abdominal folds doxycycline hyclate 100 mg capsule 100 mg PO DAILY Qty: 10 0RF Continued losartan 50 mg tablet 50 mg PO BID escitalopram oxalate 5 mg tablet 5 mg PO DAILY lidocaine 4 % adhesive patch,medicated 1 patch topical DAILY PRN (Reason: pain) Qty: 10 0RF Rx Instructions: may leave on for up to 12 hrs sennosides [senna] 8.6 mg Tablet 17.2 mg PO BEDTIME acetaminophen 325 mg Tablet 975 mg PO TID tizanidine 2 mg tablet 2 mg PO TID tramadol 50 mg tablet 50 mg PO Q4H PRN (Reason: Pain) tramadol 50 mg tablet 100 mg PO BID guaifenesin 100 mg/5 mL Liquid 200 mg PO Q4H PRN (Reason: Cough) potassium chloride 20 mEq tablet,ER particles/crystals 20 meq PO BID trazodone 100 mg tablet 100 mg PO BEDTIME hydrocortisone [Preparation H Hydrocortisone] 1 % Cream 1 appl TOPICAL TID PRN (Reason: Hemorrhoids) hydroxyzine HCl 25 mg Tablet 25 mg PO TID PRN (Reason: Itching) furosemide 20 mg tablet 60 mg PO DAILY ondansetron 4 mg Tablet,Disintegrating 4 mg PO Q6H PRN (Reason: Nausea And Vomiting) docusate sodium 100 mg Tablet 100 mg PO BID simethicone 80 mg Tablet,Chewable 80 mg PO Q6H PRN (Reason: gas) rosuvastatin 5 mg tablet 5 mg PO DAILY quetiapine 50 mg tablet 50 mg PO BEDTIME cholecalciferol (vitamin D3) 25 mcg (1,000 unit) Tablet 25 mcg PO DAILY Discontinued prednisone 10 mg tablet 10 mg PO DAILY Rx Instructions: x 3 days, finish 02/14/24 hydrochlorothiazide 50 mg tablet 50 mg PO BID cephalexin 500 mg tablet 500 mg PO Q6H Rx Instructions: x7 days, finsih 02/18/24 Discharge Orders: Discharge Order (Routine); Ordered 02/17/24 Ordered By: Maureen Gordon Diet: Advance to usual diet Activity on Discharge: As tolerated Stand Alone Forms: Patient Portal Discharge page Print Language: Moldovan Care Plan Goals: Acute hypoxic respiratory failure use 2 L of oxygen at night/outpatient sleep study Take doxycycline 1 tablet twice daily as directed Keep legs elevated Follow low-calorie diet Minimize narcotics Physical therapy daily ambulation Calamine lotion to both lower extremities for itching Nystatin twice daily to groin rash Health Concerns: Hypertension/chronic edema /chronic pain Plan of Treatment: Outpatient follow-up with primary care physician Assessment: As above
--- NOTE | 2024-02-17 12:24 | PC.NURSE ---
[facility] Facility unable to take report at this time, instructed facility secratary to call this RN back when staff becomes available.
== END 2024-02-17 13:49 | disposition skilled nursing facility (03) | DRG 602 ==
LOC: HO.ED 15:53 → HO.EDOVER 17:41 → HO.S3 20:44
PROVIDERS: Admitting Provider Student in an Organized Health Care Education/Training Program; Emergency Provider Student in an Organized Health Care Education/Training Program; PCP Hospitalist; Visit Provider Hospitalist
DX: L03.116 Cellulitis of left lower limb (principal); J96.01 Acute respiratory failure with hypoxia; J98.11 Atelectasis; Z68.42 Body mass index [BMI] 45.0-49.9, adult; I87.313 Chronic venous hypertension (idiopathic) with ulcer of bilateral lower extremity; L97.829 Non-pressure chronic ulcer of other part of left lower leg with unspecified severity; L97.819 Non-pressure chronic ulcer of other part of right lower leg with unspecified severity; E66.2 Morbid (severe) obesity with alveolar hypoventilation; F39 Unspecified mood [affective] disorder; Z66 Do not resuscitate; I73.9 Peripheral vascular disease, unspecified; E87.6 Hypokalemia; Z71.3 Dietary counseling and surveillance; G89.4 Chronic pain syndrome; L03.115 Cellulitis of right lower limb; Z20.822 Contact with and (suspected) exposure to COVID-19; Z87.891 Personal history of nicotine dependence; Z79.899 Other long term (current) drug therapy
CPT/HCPCS: 0241U; 36415; 36600; 71045; 71275; 80048; 80053; 82803; 83880; 84484; 85025; 85027; 85652; 86140; 87040; 87640; 87641; 93005; 93925; 94762; 97163; 99285; J1650; J2543; Q9967

== ENCOUNTER → 2024-02-13 12:57 | Outpatient (BNV) | payer MEDICARE, SELFPAY | PROVIDERS: Admitting Provider Student in an Organized Health Care Education/Training Program; Emergency Provider Student in an Organized Health Care Education/Training Program; PCP Hospitalist; Visit Provider Internal Medicine Cardiovascular Disease | DX: R09.02 Hypoxemia (principal) | CPT/HCPCS: 93010 ==

== ENCOUNTER → 2024-02-13 17:33 | Outpatient (BNV) | payer OTHER, SELFPAY | PROVIDERS: Admitting Provider Student in an Organized Health Care Education/Training Program; Emergency Provider Student in an Organized Health Care Education/Training Program; PCP Hospitalist; Visit Provider Surgery Vascular Surgery | DX: L97.919 Non-pressure chronic ulcer of unspecified part of right lower leg with unspecified severity (principal); L97.929 Non-pressure chronic ulcer of unspecified part of left lower leg with unspecified severity | CPT/HCPCS: 99222 ==

== ENCOUNTER → 2024-02-13 17:33 | Outpatient (BNV) | payer MEDICARE, SELFPAY | PROVIDERS: Admitting Provider Student in an Organized Health Care Education/Training Program; Emergency Provider Student in an Organized Health Care Education/Training Program; PCP Hospitalist; Visit Provider Student in an Organized Health Care Education/Training Program | DX: J98.11 Atelectasis (principal); J96.01 Acute respiratory failure with hypoxia; L03.116 Cellulitis of left lower limb; L03.115 Cellulitis of right lower limb; G89.4 Chronic pain syndrome | CPT/HCPCS: 99223; 99233; 99239 ==

== ENCOUNTER 2024-03-25 10:09 | Outpatient (AMB) | payer OTHER, SELFPAY ==
--- NOTE | 2024-03-25 10:37 | A.OFFVIS_ITS ---
Intake Visit Reasons: Hosp fu for non-healing ulcers Intake Note: hospital follow up for bilateral LE ulcers s/p cellulitis. Pt is on a strecher today from [facility]. Pt states bandage changes are done every 3 days Accompanied by: ambulance drivers Allergies oxycodone [From Percocet] Allergy (Verified 03/25/24 10:42) Itching Sulfa (Sulfonamide Antibiotics) Allergy (Verified 03/25/24 10:42) Unknown HPI HPI Hosp fu for non-healing ulcers: Details: Complex 68-year-old female with a history of chronic pain in vertebral compression factors had significant swelling of her lower extremities. She has had bilateral lower extremity ulcers which have gone on to heal. Arterial testing while she was in the hospital appear to be within normal limits. She now presents for follow-up regarding her lower extremities. Of note she does have some weeping and significant swelling of bilateral lower extremity PFSH Medical History Depression Chronic pain syndrome Obesity Low back pain Osteoarthritis, hip, bilateral Leg edema Back pain Kidney tumor Fatty liver Elevated cholesterol Hypertension Surgical History Hx of cholecystectomy History of hemorrhoidectomy Hx of section Hx of appendectomy Hx of bilateral breast reduction surgery Hx of colonoscopy Social History Household Members: Other Household Members Other:: 1/mother Housing: House Are you a primary home care associate to a significant other at home: No Do you presently have visiting nurse or other home services: No Alcohol intake: never Patient Tobacco Use Status: Former Tobacco user Quit Date: 7 month ago Tobacco use type: Cigarette Cigarettes Per Day: 20 Years Smoked: 59 e-Cigarette/Vaping Use: Never Used Second Hand Smoke Exposure: No Substance Use Type: Painkillers service: No Review of Systems Const Reports as per HPI ENT Reports no additional complaints Card Denies chest pain, Denies chest pain at rest and Denies chest pain with activity Resp Denies chest congestion and Denies cough GI Reports no additional complaints Musc Details: pain over varicosities, aching of lower extremities, swelling, cramping, heaviness and tiredness, itching Denies abnormal gait Skin/Breast Reports pruritus and Denies wounds Neuro Reports no additional complaints and Denies abnormal gait Psych Denies no additional complaints Physical Exam Const General: cooperative, healthy appearing and comfortable Orientation/consciousness: oriented to person, oriented to place and oriented to time Neck Carotids: no bruits Chest Chest palpation & inspection: normal inspection of the chest and normal palpation of entire chest wall Resp Effort & Inspection: normal respiratory effort and able to speak in complete sentences Cardio Rate: regular rate Heart sounds: S1 normal heart sound present and S2 normal heart sound present Peripheral pulses: Peripheral pulses 2+ throughout GI Inspection: Yes normal to inspection Skin Other: +2 edema, with weeping skin CEAP Classification C4 - skin color changes Ep - Etiology Primary As - superficial veins P - reflux General skin exam: dry skin Neuro General: oriented to person, oriented to place and oriented to time Extrem Right lower extremity: full ROM, normal capillary refill and edema Left lower extremity: full ROM, normal capillary refill and edema Psych Mental Status: mental status grossly normal Assessment & Plan Assessment & Plan (1) Varicose veins of left lower extremity with inflammation: Code(s): I83.12 - Varicose veins of left lower extremity with inflammation Category: Medical Plan: In short patient has significantly swollen lower extremities. I have taken the liberty of ordering venous insufficiency testing to rule that out. She will follow up with us after testing. Thank you for allowing us to assist in her care. Orders: Orders US venous duplex LE BI 1 Week I83.12 - Varicose veins of left lower extremity with inflammation Coding Level of Care Code Est Pt Level 4 (33998) Diagnoses Varicose veins of left lower extremity with inflammation I83.12
== END 2024-03-25 10:52 | disposition home or self-care (01) ==
PROVIDERS: PCP Hospitalist; Visit Provider Surgery Vascular Surgery
DX: I83.12 Varicose veins of left lower extremity with inflammation (principal)
CPT/HCPCS: 99213

== ENCOUNTER → 2024-03-25 10:09 | Outpatient (BNVA) | payer OTHER, SELFPAY | PROVIDERS: PCP Hospitalist; Visit Provider Surgery Vascular Surgery | DX: I83.12 Varicose veins of left lower extremity with inflammation (principal) | CPT/HCPCS: 99212 ==

== ENCOUNTER 2024-08-26 14:16 | Emergency (ER) | payer OTHER, SELFPAY ==
[2024-08-26 14:23] VITALS: BP 162/80; BP 170/94; PULSE 103; PULSE 107; RESP 16; TEMP 36.6; O2SAT 95; O2SAT 96; BMI 43.7
[2024-08-26 14:45] VITALS: BP 162/80; PULSE 103; RESP 16; TEMP 36.6; O2SAT 96
--- NOTE | 2024-08-26 14:49 | PC.NURSE ---
Pt comes to ED today for c/o increasing itchy lesions to her body. Pt reports lesions began on her chest about 2 months ago. Since then have been spreading throughout her body. C/o severe itching; evidence of excessive scratching noted. Pt reports she has been seen by infection control and dermatology with no ability to pinpoint a diagnosis. Pt also c/o bed sores to her buttocks area. Report she is slotted to start a new medication via [facility] services to treat this. VSS, afebrile, A&Ox3
--- OUTSIDE RECORDS SUMMARY | 2024-08-26 15:23 | XMS_ITS | Continuity of Care Document ---
Author Organization [facility] ter Address [address] [place] [address]- Care Team Providers Care System Designer Name Role Phone Ivana Henry MD Primary Care Physician [phone] Encounter [facility] Date(s): 03/23/24 - 03/24/[address] [address]- Encounter Diagnosis Pneumonia(Final) - 03/24/24 Discharge Disposition: A-D/C Home Attending Physician: Guille Gonzalez MD Admitting Physician: Guille Gonzalez MD Referring Physician: Not on Staff, Referring MD Allergies, Adverse Reactions, Alerts Substance Reaction Severity Status sulfADIAZINE Unknown Active Medications acetaminophen 325 mg oral tablet 975 mg, By Mouth, 3 times a day, Refills 0, Maintenance, 08/26/23 12:59:00 EDT, Partial fill upon patient request if the prescription is for a schedule II opioid drug. Start Date: 08/26/23 Status: Ordered Augmentin 500 mg-125 mg oral tablet 1 tablet, By Mouth, Every 12 hours, for 10 days, first dose was administered in the ER 03/24/24 in AM, next dose will be 03/24/24 in PM, # 19 tablet, 0 Refills, Acute 04/03/24 2:38:00 EDT, 03/24/24 2:38:00 EDT, Tablet, [facility][id number], Par... Start Date: 03/24/24 Stop Date: 04/03/24 Status: Ordered bisacodyl 10 mg rectal suppository [...] opioid drug. Start Date: 08/16/23 Status: Ordered doxycycline hyclate 100 mg oral capsule 1 capsule = 100 mg, By Mouth, 2 times a day, for 10 days, first dose was administered in the ER 03/24/24 in AM, next dose will be 03/24/24 in PM. may take with food to minimize abdominal discomfort, # 19 capsule, 0 Refills, Acute 04/03/24 2:38:00 E... Start Date: 03/24/24 Stop Date: 04/03/24 Status: Ordered escitalopram 5 mg oral tablet [...] Start Date: 08/26/23 Status: Ordered nystatin topical 714041 u/gm powder 1 application, Topically, 2 times a day, # 15 Gm, 0 Refills, Maintenance, 08/26/23 13:08:00 EDT, Powder, [facility] #[id number], Partial fill upon patient request if the prescription is for a schedule II opioid drug., 1 application Topically 2 ti... Start Date: 08/26/23 Status: Ordered QUEtiapine 25 mg oral tablet 50 mg, [...] Start Date: 08/16/23 Status: Ordered Vitamin D 68606 iu oral capsule 50,000 units, By Mouth, [...] Exam Date Time Procedure Performing Provider Status 03/24/24 1:17 AM Chest 2 Views Frontal and Lat Hamida Cotton; Auth (Verified) Notes: (Chest 2 Views Frontal and Lat) Reason For Exam: Shortness of Breath RESULT: Chest 2 Views Frontal and Lat Examination: Chest performed on 03/24/2024. History: Chest pain. Findings: Frontal and lateral views of the chest are compared to a prior study dated 08/15/2023. The cardiac and mediastinal silhouettes are within normal limits. Prominence of interstitial lung markings is noted without overt edema. There are no focal infiltrates. The osseous and soft tissue structures are unremarkable. Impression: There is no acute cardiopulmonary disease. WSN: [id number] Ordering Physician: Gloria Ambrose Dictated By: Yamile Carrera MD Dictated Date/Time: 03/24/24 7:56 am Reviewed By: Yamile Carrera MD Signed By: Yamile Carrera MD Signed Date/Time: 03/24/24 7:56 am Transcribed By: CLARIBEL Transcribed Date/Time: 03/24/24 7:56 am Vital Signs Most recent to oldest [Reference Range]: 1 2 Oxygen Saturation [94-100 %] 91 % *L* (03/24/24 4:39 AM) 94 % (03/23/24 11:08 PM) Pulse Rate [55-90 bpm] 95 bpm *H* (03/24/24 4:39 AM) 93 bpm *H* (03/23/24 11:08 PM) Blood Pressure [90-138/55-84 mm Hg] 152/ 72mm Hg *H* (03/24/24 4:39 AM) 126/70mm Hg (03/23/24 11:08 PM) Respiratory Rate [16-30 br/min] 22 br/mi n (03/24/24 4:39 AM) 24 br/min (03/23/24 11:08 PM) Temperature [96.8-100.4 DegF] 99.6 DegF (03/24/24 4:39 AM) 97.9 DegF (03/23/24 11:08 PM) Liters per Minute 2 L/min (03/23/24 11:08 PM) Mode of Delivery (Oxygen) Room air (03/24/24 4:39 AM) Nasal cannula (03/23/24 11:08 PM) Blood pressure sites Arm, left (03/24/24 4:39 AM) Temperature Route Oral (03/24/24 4:39 AM) Oral (03/23/24 11:08 PM) Social History Social History Type Response Smoking Status 10 or more cigarette s (1/2 pack or more)/day in last 30 days entered on: 06/18/23 Sex EKG study * Event Display: ECG 12-Lead Authored Date: Please click on pdf link to open report * Event Display: ECG 12-Lead Authored Date: Ventricular Rate: 94 BPM Atrial Rate: 94 BPM P-R Interval: 154 ms QRS Duration: 90 ms Q-T Interval: 364 ms QTC Calculation(Bazett): 455 ms P Grundy: 20 degrees R Grundy: 18 degrees T Grundy: 68 degrees Normal sinus rhythm Low voltage QRS Borderline ECG When compared with ECG of 28-DEC-2012 19:02, No significant change was found Confirmed by JO-ANN SUH MD ([id number]) on 03/24/2024 1:04:45 PM [place]: JO-ANN SUH MD Note * Gloria Ambrose DO: PERFORM Event Display: Patient Education Leaflets Authored Date: [id number] Pneumonia (Adult) ?? [id number] Pneumonia (Adult) Pneumonia is an infection inside the lungs. It's in the small air sacs (alveoli). It may be caused by a virus, fungus, or bacteria. Pneumonia caused by bacteria??is treated with an antibiotic medicine. Severe cases may need to be treated in the hospital. Milder cases can be treated at home. Symptoms may include fever, chills, and cough (dry or with phlegm). You may have a headache, muscle weakness, trouble breathing, and pain. These symptoms often get worse in the first 2 days. But they often start to get better in the first week of treatment. Home care Follow these guidelines when caring for yourself at home: ??? Get plenty of rest. Take naps as needed. Don???t let yourself get too tired when you go back to your activities. Go back to activities asdirected by your healthcare provider. ??? Stop smoking. This is the most important step you can take to help treat pneumonia. If you need help to stop, talk with your healthcare provider. ??? Stay away from secondhand smoke. Don???t let anyone smoke in your home or your car. ??? Wash your hands often with soap and clean, running water. Rub for at least 20 seconds. Make sure to clean under your nails and between your fingers. When you can't wash your hands, use hand key punch teacher with at least 60% al cohol. ??? Cover your mouth and nose when coughing or sneezing. Use a tissue or the inside of your elbow. Don't cough or sneeze into your hands. Throw used tissues away. Be sure to wash your hands after coughing, sneezing, or blowing your nose. ??? Limit close contact with other people while you are sick. ??? Stay away from crowds during cold and flu season. Consider wearing a mask in crowds. ???Use pain medicine as directed. You may use acetaminophen or ibuprofen to control fever or pain, unless another medicine was prescribed. If you have chronic liver or kidney disease, talk with your healthcare provider before using these medicines. Also talk with your provider if you???ve had a stomach ulcer or bleeding in your stomach or intestines. Don???t give aspirin to a child younger than age 19 unless directed by the provider. Taking aspirin can put a child at risk for Martin syndrome. This is a rare but very serious disorder. It most often affects the brain and the liver. ??? Drink plenty of water and other fluids. This can make mucus thinner and easier to cough up. Ask your healthcare provider how much water you should drink. For many people, 6 to 8 glasses (8 ounces each) a day is a good goal. Other fluids include sport drinks, sodas without caffeine, juices, tea, or soup. If you also have heart or kidney disease, check with your provider before you drink extra fluids. ??? Eat asyou are able. You may not feel hungry, so a light diet is fine. Follow the treatment plan as advised by your healthcare provider. ??? Take medicines as instructed by your healthcare provider. If you were given an antibiotic medicine, take it until it's all gone, even if you are feeling better aftera few days. ??? Try to stay away from air pollution. If you live in an area with air pollution, track the Air Quality Index (AQI) reports. Plan your outdoor activities when air quality is OK. ?? Follow-up care Follow up with your healthcare provider in the next 2 to 3 days, or as advised. Following up with your provider as directed is important to make sure you are getting better. You may need more tests if you aren't getting better. Take steps to prevent future infections. Ask your healthcare provider what vaccines are right for you and when to get them. This may include the influenza (flu), COVID-19, and pneumococcal vaccines. ?? Call 911 Call 911 if any of these occur: ??? Unable to speak or swallow ??? Lips or skin looks blue, purple,or rendon ??? Feeling dizzy ??? Fainting ??? Unable to be awake or aware ??? Feeling of doom ??? Trouble breathing or wheezing ??? Shortness of breath gets worse or doesn't get better with treatment ??? Rapid breathing (more than 25 breaths per minute) ??? Coughing up blood ??? Chest pain gets worse with breathing or doesn't get better with treatment ?? When to get medical advice Call your healthcare provider right away if any of these occur: ??? You don???t get better in the first 2 to 3 days of treatment ??? Fever of??100.4??F (38??C) or higher, or as directed by your healthcare provider ??? Shaking chills ??? Cough with phlegm that doesn't get better, or get worse ??? Shortness of breath with activities ??? Weakness, dizziness, or fainting that gets worse ??? Thirst ordry mouth that gets worse ??? Sinus pain, headache, or a stiff neck ??? Chest pain with breathing or coughing ??? Symptoms that get worse or don't get better ?? Last Reviewed Date: 2021 ?? 6160-5102 [employer]. All rights reserved. This information is not intended as a substitute for professional medical care. Always follow your healthcare professional's instructions. ?? Patient Care team information Care Team Personnel Name: Ivana Henry MD Position: [facility] Physician - Hospital Medicine Member Role: PCP Address: Address: [address] [place] [address] Name: Triny Baugh Position: [facility] RN Member Role: Primary Care Nurse Name: Dian Hurtado RN Position: [facility] RN Member Role: Primary Care Nurse Care Team Related Persons Name: FREDDY PLASCENCIA Address: [place] [address] Name: CHECO NOBLES Address: [address] [address]
--- OUTSIDE RECORDS SUMMARY | 2024-08-26 15:23 | XMS_ITS | Continuity of Care Document ---
Author Organization [facility] Address [address] [place] [address]- Care Team Providers Care Mail Order Biller Name Role Phone Roxanna Bingham MD Primary Care Physician [place] [facility] [place]s): 06/23/24 - 07/23/24 [facility] [address] [place] [id number] Attending Physician: Yvette Downing Admitting Physician: Yvette Downing Referring Physician: AdmYvette barboza Allergies, Adverse Reactions, Alerts Substance Reaction Severity [...] opioid drug. Start Date: 08/26/23 Status: Ordered chlorhexidine 2% topical liquid See Instructions, 1 application Topically from the neck down each day for 5 days in a row each month for 6 months, # 360 mL, 0 Refills, Soft Stop, 06/25/24 13:49:00 EDT, Liquid, [facility] #[id number], Partial fill upon patient request if the pre... Start Date: 06/25/24 Status: Ordered diclofenac 1% topical gel 1 [...] Start Date: 08/26/23 Status: Ordered nystatin topical 921868 u/gm powder 1 application, Topically, 2 times a day, # 15 Gm, 0 Refills, Maintenance, 08/26/23 13:08:00 EDT, Powder, [facility] #[id number], Partial fill upon patient request if the [...] Start Date: 08/16/23 Status: Ordered Vitamin D 16971 iu oral capsule 50,000 units, By Mouth, [...] History Social History Type Response Smoking Status Former smoker, quit more than 30 days ago entered on: 06/23/24 Sex Patient Care team information Care Team Personnel Name: Roxanna Bingham MD Position: [facility] Outreach Member Role: PCP Address: Address: [address] [place] [address] Name: Aleksandra Bullock RN Position: [facility] SN RN Member Role: Primary Care Nurse Name: Triny Baugh RN Position: S RN Member Role: Primary Care Nurse Name: Dian Hurtado RN Position: S RN Member Role: Primary Care Nurse Care Team Related Persons Name: THAISFREDDYALEK Address: [place] [address] Name: EUNICE DICK Name: CHECO NOBLES Address: [address] [address]
--- OUTSIDE RECORDS SUMMARY | 2024-08-26 15:24 | XMS_ITS | Continuity of Care Document ---
Author Organization [facility] Address [address] [place] [address]- Care Team Providers Care Fifth Hand Name Role Phone Zachery ROCKWELL, Roxanna Primary Care Physician [phone] [id number] 07[facility] [address] [place] [id number] Allergies, Adverse Reactions, Alerts Substance Reaction Severity [...] Refills, Soft Stop, 06/25/24 13:49:00 EDT, Liquid, [facility] #[id number], Partial fill upon patient request if the [...] Start Date: 08/26/23 Status: Ordered nystatin topical 987769 u/gm powder 1 application, Topically, 2 times a day, # 15 Gm, 0 Refills, Maintenance, 08/26/23 13:08:00 EDT, Powder, [facility] #[id number], Partial fill upon patient request if the [...] Start Date: 08/16/23 Status: Ordered Vitamin D 61730 iu oral capsule 50,000 units, By Mouth, [...] Team Personnel Name: Roxanna Bingham MD Position: [facility] Outreach Member Role: PCP Address: Address: [address] [place] [address] Name: Aleksandra Bullock RN Position: [facility] RN Member Role: Primary Care Nurse Name: Triny Baugh RN Position: S RN Member Role: Primary Care Nurse Name: Dian Hurtado RN Position: [facility] RN Member Role: Primary Care Nurse Care Team Related Persons Name: CHELAFREDDY MANE Address: [place] [address] Name: EUNICE DICK Name: CHECO NOBLES Address: [address] [address]
--- OUTSIDE RECORDS SUMMARY | 2024-08-26 15:24 | XMS_ITS | Continuity of Care Document ---
Author Organization [facility] Address [address] [place] [address]- Care Team Providers Care Ironworker Machine Operator Name Role Phone Zachery ROCKWELL, Roxanna Primary Care Physician [id number] Date(s): 06/28/24 - 07/28/24 [facility] [address] [place] [address]- Allergies, Adverse Reactions, Alerts Substance Reaction Severity [...] Refills, Soft Stop, 06/25/24 13:49:00 EDT, Liquid, [facility] #[id number], Partial fill upon patient request if the [...] Start Date: 08/26/23 Status: Ordered nystatin topical 346349 u/gm powder 1 application, Topically, 2 times a day, # 15 Gm, 0 Refills, Maintenance, 08/26/23 13:08:00 EDT, Powder, [facility] #[id number], Partial fill upon patient request if the [...] Start Date: 08/16/23 Status: Ordered Vitamin D 50509 iu oral capsule 50,000 units, By Mouth, [...] Team Personnel Name: Roxanna Bingham MD Position: [facility] Outreach Member Role: PCP Address: Address: [address] [place] [address] Name: Aleksandra Bullock RN Position: [facility] RN Member Role: Primary Care Nurse Name: Triny Baugh RN Position: S RN Member Role: Primary Care Nurse Name: Dian Hurtado RN Position: [facility] RN Member Role: Primary Care Nurse Care Team Related Persons Name: CHELAFREDDY MANE Address: [place] [address] Name: EUNICE DICK Name: CHECO NOBLES Address: [address] [address]
--- OUTSIDE RECORDS SUMMARY | 2024-08-26 15:24 | XMS_ITS | Continuity of Care Document ---
Author Organization [facility] Address [address] [place] [address]- Care Team Providers Care Laborer Gold Leaf Name Role Phone Zachery ROCKWELL, Roxanna Primary Care Physician Encounter [facility] ACCT R [id number] Date(s): 06/08/24 - 07/08/24 [facility] [address] [place] [id number] Allergies, Adverse Reactions, Alerts Substance Reaction Severity [...] Refills, Soft Stop, 06/25/24 13:49:00 EDT, Liquid, [facility] #[id number], Partial fill upon patient request if the [...] Start Date: 08/26/23 Status: Ordered nystatin topical 717189 u/gm powder 1 application, Topically, 2 times a day, # 15 Gm, 0 Refills, Maintenance, 08/26/23 13:08:00 EDT, Powder, [id number], Partial fill upon patient request if the [...] Start Date: 08/16/23 Status: Ordered Vitamin D 42158 iu oral capsule 50,000 units, By Mouth, [...] Team Personnel Name: Roxanna Bingham MD Position: [facility] Outreach Member Role: PCP Address: Address: [address] [place] [id number] Name: Aleksandra Bullock RN Position: [facility] RN Member Role: Primary Care Nurse Name: Triny Baugh RN Position: [facility] RN Member Role: Primary Care Nurse Name: Dian Hurtado RN Position: S RN Member Role: Primary Care Nurse Care Team Related Persons Name: FREDDY PLASCENCIA Address: [place] [address] Name: EUNICE DICK Name: CHECO NOBLES Address: [address] [address]
[2024-08-26 15:45] LABS: Basophils Percent Auto 0.5 % (0-2); Eosinophils Absolute Auto 0.4 X10*3/uL (0.0-0.4); Eosinophils Percent Auto 5.8 % (0-4); Hematocrit 36.6 % (37.0-47.0); Imm Gran Abs Auto 0.02 X10*3/uL (0.00-0.03); Imm Gran Pct Auto 0.3 % (0.0-0.4); Lymphocytes Absolute Auto 1.8 X10*3/uL (1.2-4.9); Lymphocytes Percent Auto 29.1 % (20-40); MANUAL DIFF FLAG NO; Mean Corpuscular HGB Conc 32.8 g/dl (31.0-35.0); Mean Corpuscular Hemoglobin 31.3 pg (27.0-33.0); Mean Corpuscular Volume 95.3 fL (80.0-98.0); Mean Platelet Volume 9.4 fL (9.4-12.3); Monocytes Absolute Auto 0.6 X10*3/uL (0.1-1.2); Monocytes Percent Auto 9.2 % (2-11); Neutrophils Absolute Auto 3.3 x10*3/uL (2.0-8.3); Neutrophils Percent Auto 55.1 % (45-73); Platelet Count 194 X10*3/uL (160-400); Red Blood Count 3.84 X10*6/uL (4.20-5.50); Red Cell Distribution Width 13.5 % (11.0-16.0)
--- NOTE | 2024-08-26 15:45 | ED_ITS ---
HPI - Skin/Abscess/Foreign Bdy General Chief complaint: Skin/Abscess/Foreign Body Stated complaint: BLISTERS IVER BODY X 2 MONTHS Time Seen by Provider: 08/26/24 14:22 Source: patient, EMS, RN notes reviewed and old records reviewed Mode of arrival: EMS History of Present Illness ED Provider: Sofia Pan PA-C HPI narrative: 68-year-old female with a past medical history depression, chronic pain syndrome, obesity, leg edema, HTN, HLD, osteoarthritis, presenting to the ED via EMS complaining of diffuse pruritic rash/lesions to entire body times 2-3 months. States rash began after admission to [facility] and discharged to SNF. Admits has been seen by outpatient dermatology and Infectious Disease without relief, unsure what diagnosis was. Denies new exposures including soaps, lotion, detergent, SOB, throat closing sensation. Also reports pressure wounds to buttock which she falls with VNA Related Data Home Medications ?Medication ?Instructions ?Recorded ?Confirmed escitalopram oxalate 5 mg tablet 5 mg PO DAILY 09/11/20 02/13/24 losartan 50 mg tablet 50 mg PO BID 09/11/20 02/13/24 acetaminophen 325 mg tablet 975 mg PO TID 02/13/24 02/13/24 cholecalciferol (vitamin D3) 25 25 mcg PO DAILY 02/13/24 02/13/24 mcg (1,000 unit) tablet docusate sodium 100 mg tablet 100 mg PO BID 02/13/24 02/13/24 furosemide 20 mg tablet 60 mg PO DAILY 02/13/24 02/13/24 guaifenesin 100 mg/5 mL oral liquid 200 mg PO Q4H PRN Cough 02/13/24 02/13/24 hydrocortisone 1 % topical cream 1 appl topical TID PRN Hemorrhoids 02/13/24 02/13/24 (Preparation H Hydrocortisone) hydroxyzine HCl 25 mg tablet 25 mg PO TID PRN Itching 02/13/24 02/13/24 ondansetron 4 mg disintegrating 4 mg PO Q6H PRN Nausea And Vomiting 02/13/24 02/13/24 tablet potassium chloride 20 mEq 20 meq PO BID 02/13/24 02/13/24 tablet,extended release(part/cryst) quetiapine 50 mg tablet 50 mg PO BEDTIME 02/13/24 02/13/24 rosuvastatin 5 mg tablet 5 mg PO DAILY 02/13/24 02/13/24 sennosides 8.6 mg tablet (senna) 17.2 mg PO BEDTIME 02/13/24 02/13/24 simethicone 80 mg chewable tablet 80 mg PO Q6H PRN gas 02/13/24 02/13/24 tizanidine 2 mg tablet 2 mg PO TID 02/13/24 02/13/24 tramadol 50 mg tablet 50 mg PO Q4H PRN Pain 02/13/24 02/13/24 tramadol 50 mg tablet 100 mg PO BID 02/13/24 02/13/24 trazodone 100 mg tablet 100 mg PO BEDTIME 02/13/24 02/13/24 amoxicillin 500 mg tablet 500 mg PO BID 03/25/24 Previous Rx's ?Medication ?Instructions ?Recorded lidocaine 4 % topical patch 1 patch topical DAILY PRN pain #10 09/15/20 ea doxycycline hyclate 100 mg capsule 100 mg PO DAILY #10 caps 02/17/24 nystatin 100,000 unit/gram topical 1 appl topical BID groin rash #30 02/17/24 powder grams hydrocortisone 1 % lotion 1 appl topical BID PRN rash #120 mL 08/26/24 (Anti-Itch (hydrocortisone)) permethrin 5 % topical cream 1 appl topical Q14D 2 doses #60 08/26/24 grams prednisone 20 mg tablet 40 mg (2 x 20 mg) PO DAILY 5 days 08/26/24 #10 tabs Allergies Allergy/AdvReac Type Severity Reaction Status Date / Time oxycodone [From Percocet] Allergy Itching Verified 08/26/24 14:44 Sulfa (Sulfonamide Allergy Unknown Verified 08/26/24 14:44 Antibiotics) Review of Systems 2 Review of Systems: Yes all other systems are reviewed and are negative Constitutional: Constitutional: Reports as per [facility] Past Medical History Attestation statement: The following information was validated with the patient. Source: old records reviewed Medical History Depression Chronic pain syndrome Obesity Low back pain Osteoarthritis, hip, bilateral Leg edema Back pain Kidney tumor Fatty liver Elevated cholesterol Hypertension Surgical History Hx of cholecystectomy History of hemorrhoidectomy Hx of section Hx of appendectomy Hx of bilateral breast reduction surgery Hx of colonoscopy Social History Social History Household Members: Other Household Members Other:: 1/mother Housing: House Are you a primary healthcare administrator to a significant other at home: No Do you presently have visiting nurse or other home services: No Alcohol intake: never Patient Tobacco Use Status: Former Tobacco user Tobacco use type: Cigarette Cigarettes Per Day: 20 Years Smoked: 59 Smoked in Last 30 Days: No e-Cigarette/Vaping Use: Never Used Second Hand Smoke Exposure: No Use of substances other than those prescribed or required for medical reasons: No Substance Use Type: Painkillers Advance Directives: Yes Advance Directives on File: Yes Advance Directives Date on File: 02/18/24 Do you have a plan to hurt others: No Plan service: No Physical Exam 2 Vital Signs: Vital Signs: Last Vital Signs Temp 98.2 F 08/26/24 16:07 Pulse 106 H 08/26/24 16:07 Resp 16 08/26/24 16:07 BP 104/78 08/26/24 16:07 Pulse Ox 93 08/26/24 16:07 O2 Del Method Room Air 08/26/24 16:07 BMI result Body Mass Index 43.7 Const: General: cooperative, healthy appearing and no acute distress O rientation/consciousness: patient oriented x3 Limitations: no limitations HEENT: Head: Yes normal to inspection and Yes atraumatic Ears: hearing grossly normal bilaterally General nose exam: Normal external nose present Face and sinus: Yes normal facial exam Eyes: General: appearance normal, both eyes and all related structures EOM: EOMs intact bilaterally Neck: Neck: Yes normal visual inspection and Yes no meningeal signs Resp: Effort & Inspection: normal respiratory effort and no respiratory distress Auscultation: clear to auscultation bilaterally Cardio: Rate: regular rate Heart sounds: S1 normal heart sound present and S2 normal heart sound present GI: Inspection: Yes normal to inspection Palpation (GI): Soft to palpation, nontender, no guarding and not rigid Skin: Other: + diffuse erythematous scabs/skin pickin g noted over entire body. Some in linear fashion. No palm/sole or mucous membrane involvement. No fluctuance/induration or crusting Superficial pressure wounds noted to buttock region without cellulitis, no malodor/drainage Wounds: no wounds Neuro: General: patient oriented x3, tone normal and no meningeal signs C ranial nerves: Yes CN's II-XII intact bilaterally Gait exam (Neuro): Normal gait present Extrem: Other: + bilateral chronic LE pitting edema wit h faint erythema. No warmth. Course Course Course Narrative: -UA not infected -labs otherwise reassuring Results discussed with patient including worrisome signs and symptoms and strict return precautions, and when to return to the emergency department. They verbalized understanding and feel safe for discharge at this time. Medical Decision Making Medical Decision Making MDM Narrative: 68-year-old female with a past medical history depression, chronic pain syndrome, obesity, leg edema, HTN, HLD, osteoarthritis, presenting to the ED via EMS complaining of diffuse pruritic rash/lesions to entire body x 2-3 months. On exam mildly tachycardic, NAD, nontoxic appearing, physical exam as noted above. Concern for scabies & skin picking. Low suspicion for allergic reaction. No evidence of anaphylaxis, SJS/TENs or cellulitis Plan: Labs, p.o. prednisone, permethrin, PCP/dermatology follow-up Please refer to course for remaining clinical decision making, interpretation of labs/imaging results, and discussions with consultants and/or family members. Differential Diagnosis Differential Diagnoses: The differential diagnosis associated with the presentation includes As above Lab Data [facility] Lab Attestation statement: I reviewed the patient's lab results. 08/26/24 15:38 08/26/24 15:38 Labs: Lab Results 08/26/24 Range/Units 15:38 WBC 6.0 (4.8-10.8) X10*3/uL RBC 3.84 L (4.20-5.50) X10*6/uL Hgb 12.0 (12.0-16.0) g/dl Hct 36.6 L (37.0-47.0) % MCV 95.3 (80.0-98.0) fL MCH 31.3 (27.0-33.0) pg MCHC 32.8 (31.0-35.0) g/dl RDW 13.5 (11.0-16.0) % Plt Count 194 (160-400) X10*3/uL MPV 9.4 (9.4-12.3) fL Immature Gran % (Auto) 0.3 (0.0-0.4) % Neut % (Auto) 55.1 (45-73) % Lymph % (Auto) 29.1 (20-40) % [place] % (Auto) 9.2 (2-11) % Eos % (Auto) 5.8 H (0-4) % Baso % (Auto) 0.5 (0-2) % Lymph # (Auto) 1.8 (1.2-4.9) X10*3/uL [place] # (Auto) 0.6 (0.1-1.2) X10*3/uL Eos # (Auto) 0.4 (0.0-0.4) X10*3/uL Baso # (Auto) 0.0 (0.0-0.2) X10*3/uL Abs Immat Gran (auto) 0.02 (0.00-0.03) X10*3/uL Absolute Neuts (auto) 3.3 (2.0-8.3) x10*3/uL Absolute Nucleated RBC 0.000 (0.0-0.012) X10*3/uL Nucleated RBC % (auto) 0.0 (0.0-0.2) /100WBC Sodium 141 (135-145) mmol/L Potassium 3.4 (3.3-5.1) mmol/L Chloride 106 (96-108) mmol/L Carbon Dioxide 27 (22-29) mmol/L Anion Gap 11 L (12-20) BUN 5 L (9-16) mg/dL Creatinine 0.58 (0.5-1.4) mg/dL Estim Creat Clear Calc 112.6 Estimated GFR > 60 Random Glucose 112 (60-115) mg/dL Calcium 9.2 (8.4-10.2) mg/dL B-Natriuretic Peptide 109 H (<100) pg/mL Urine Color Yellow Urine Appearance Clear Urine pH 7.0 (5.0-9.0) Ur Specific [place] 1.010 (1.005-1.025) Urine Protein Negative (Neg-Trace) mg/dL Urine Glucose (UA) Negative (Negative) mg/dL Urine Ketones Negative (Negative) mg/dL Urine Blood Small (1+) H (Negative) Urine Nitrite Negative (Negative) Ur Leukocyte Esterase Moderate (2+) H (Negative) Urine RBC 3-5 H (0-2) /HPF Urine WBC 0-5 (0-5) /HPF Ur Squamous Epith Cells 6-10 (0-2) /HPF Urine Bacteria None Seen (None Seen) Hyaline Casts 0-2 (0-2) /LPF Independent Historian Clinical information obtained from an independent historian. History obtained from or confirmed by: EMS External Record Review External record reviewed: Inpatient record, Office record, Outpatient record, Prior outpatient labs, Prior outpatient radiology, Primary care record and Outside ED record Tests considered The following testing was considered but not selected: As above Prescription Management I considered prescription management with: Other Chronic Conditions Patient?s care impacted by: Other Discharge Plan Discharge Clinical Impression: Rash Patient Disposition: Home, Self-Care Instructions: Acute Rash (ED) Additional Instructions: Please use permethrin cream as prescribed. In addition take prednisone which is a steroid Hydrocortisone as a topical steroid cream, apply to rash only, avoid application to face, hands, genital region and feet Please follow-up with dermatology and your doctor If symptoms persist or worsen return to the ED Prescriptions: New permethrin 5 % cream 1 appl topical Q14D Qty: 60 0RF Rx Instructions: apply second treatment 14 days after first treatment if live lice remain prednisone 20 mg tablet 40 mg PO DAILY 5 Days Qty: 10 0RF hydrocortisone [Anti-Itch (HC)] 1 % lotion 1 appl topical BID PRN (Reason: rash) Qty: 120 0RF No Action losartan 50 mg tablet 50 mg PO BID escitalopram oxalate 5 mg tablet 5 mg PO DAILY lidocaine 4 % adhesive patch,medicated 1 patch topical DAILY PRN (Reason: pain) Qty: 10 0RF Rx Instructions: may leave on for up to 12 hrs sennosides [senna] 8.6 mg Tablet 17.2 mg PO BEDTIME acetaminophen 325 mg Tablet 975 mg PO TID tizanidine 2 mg tablet 2 mg PO TID tramadol 50 mg tablet 50 mg PO Q4H PRN (Reason: Pain) tramadol 50 mg tablet 100 mg PO BID guaifenesin 100 mg/5 mL Liquid 200 mg PO Q4H PRN (Reason: Cough) potassium chloride 20 mEq tablet,ER particles/crystals 20 meq PO BID trazodone 100 mg tablet 100 mg PO BEDTIME hydrocortisone [Preparation H Hydrocortisone] 1 % Cream 1 appl TOPICAL TID PRN (Reason: Hemorrhoids) hydroxyzine HCl 25 mg Tablet 25 mg PO TID PRN (Reason: Itching) furosemide 20 mg tablet 60 mg PO DAILY ondansetron 4 mg Tablet,Disintegrating 4 mg PO Q6H PRN (Reason: Nausea And Vomiting) docusate sodium 100 mg Tablet 100 mg PO BID simethicone 80 mg Tablet,Chewable 80 mg PO Q6H PRN (Reason: gas) rosuvastatin 5 mg tablet 5 mg PO DAILY quetiapine 50 mg tablet 50 mg PO BEDTIME cholecalciferol (vitamin D3) 25 mcg (1,000 unit) Tablet 25 mcg PO DAILY nystatin 100,000 unit/gram Powder 1 appl topical BID Qty: 30 0RF Protocol: Apply to: Apply to: abdominal folds doxycycline hyclate 100 mg capsule 100 mg PO DAILY Qty: 10 0RF amoxicillin 500 mg tablet 500 mg PO BID Referrals: [facility] [Outside] Print Language: Persian
[2024-08-26 15:47] LABS: Appearance Urine Clear; Color Urine Yellow; Glucose Urine UA Negative (Negative); Leukocyte Esterase Urine Moderate (2+) (Negative); Nitrite Urine Negative (Negative); UMIC TRIGGER UACC YES; Urine Blood Small (1+) (Negative); Urine Ketones Negative (Negative); Urine Protein Negative (Neg-Trace)
[2024-08-26 15:55] LABS: Bacteria Urine None Seen (None Seen); Hyaline Casts Urine 0-2 /LPF (0-2); WBC Urine 0-5 /HPF (0-5)
[2024-08-26 16:00] LABS: Anion Gap 11 (12-20); Blood Urea Nitrogen 5 mg/dL (9-16); Calcium 9.2 mg/dL (8.4-10.2); Carbon Dioxide 27 mmol/L (22-29); Chloride 106 mmol/L (96-108); Creatinine Clr Calc Pharmacy 112.6; Estimated Glomerular Filt Rate > 60; Glucose Random 112 mg/dL (60-115); Potassium 3.4 mmol/L (3.3-5.1); Sodium 141 mmol/L (135-145)
[2024-08-26 16:07] VITALS: BP 104/78; PULSE 106; RESP 16; TEMP 36.8; O2SAT 93
[2024-08-26 16:08] LABS: B Type Natriuretic Peptide 109 pg/mL (<100)
[2024-08-26 17:18] VITALS: BP 104/78; PULSE 106; RESP 16; TEMP 36.8; O2SAT 93
[2024-08-26 18:20] VITALS: BP 140/64; PULSE 111; RESP 16; TEMP 36.5; O2SAT 92
== END 2024-08-26 18:53 | disposition home or self-care (01) ==
PROVIDERS: Physician Assistant; Emergency Provider Emergency Medicine
DX: L29.9 Pruritus, unspecified (principal); Z79.899 Other long term (current) drug therapy
CPT/HCPCS: 36415; 80048; 81001; 83880; 85025; 99283; 99284